=== PATIENT | male | born 1955 | race Caucasian/White ===

== ENCOUNTER → 2023-01-01 08:50 | Outpatient (BNVA) | payer MEDICARE, SELFPAY | PROVIDERS: Visit Provider Neurological Surgery ==

== ENCOUNTER 2023-07-17 08:44 | Outpatient (AMB) | payer MEDICARE, SELFPAY ==
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
[2023-07-17 09:03] VITALS: BMI 41.6
== END 2023-07-17 09:43 | disposition home or self-care (01) ==
PROVIDERS: Visit Provider Physician Assistant
DX: M17.0 Bilateral primary osteoarthritis of knee (principal)
CPT/HCPCS: 99203

== ENCOUNTER 2023-07-17 09:15 | Outpatient (REF) | payer MEDICARE, SELFPAY | END 2023-07-17 09:16 | disposition home or self-care (01) | LOC: HO.HOSX 09:15 | PROVIDERS: Visit Provider Physician Assistant | DX: M17.0 Bilateral primary osteoarthritis of knee (principal); Z79.899 Other long term (current) drug therapy | CPT/HCPCS: 73560; 73565; 99202 ==

== ENCOUNTER 2023-07-30 09:24 | Outpatient (AMB) | payer MEDICARE, SELFPAY ==
--- NOTE | 2023-07-30 09:27 | A.OFFVIS_ITS ---
Intake Intake Visit Reasons: discuss LT TKA Intake Note: Musa is a 67 year old male who presents with complaints of progressively worsening bilateral knee pains, left greater than right. He describes his pain as sharp and severe in nature. His pains have gotten worse over the last few y ears in spite of continued non operative treatments. He has done physical therapy which aggravated his pains. He has also had injections in the past. The most recent set of injections gave him minimal relief. He has tried Tylenol and anti-inflammatory medicines which gave him only mild relief. The patient has difficulty walking even short distances because of his pain. At this point his knee pains are interfering with his activities of daily living and his ability to sleep well through the night. Allergies hazelnut Allergy (Verified 07/30/23 09:29) Unknown peach Allergy (Verified 07/30/23 09:29) Unknown Medication List - Last Reconciled 07/30/23 by Db Wright MD lisinopril 10 mg PO DAILY tamsulosin 0.4 mg PO DAILY PFSH Surgical History Hx of rotator cuff surgery Hx of toe surgery Social History Patient Tobacco Use Status: Never used Tobacco Current occupational status: other Physical Exam Const Other: Well-nourished well-developed very friendly male awake alert and oriented x3 in no acute distress Extrem Other: Bilateral lower extremity examination shows good capillary refill, no skin lesions noted, normal sensation light touch Bilateral knee examination shows minimal effusions, palpable crepitus with range of motion, pain with range of motion, range of motion from -3 degrees to 115 degrees, no instability Results Reviewed Results Reviewed: X-rays of the patient's bilateral knee show severe joint space narrowing with grade 4 [id number] arthritis, subchondral sclerosis, osteophyte formation, no acute bony abnormalities Assessment & Plan Assessment & Plan (1) Arthritis of left knee: Code(s): M17.12 - Unilateral primary osteoarthritis, left knee (2) Arthritis of right knee: Code(s): M17.11 - Unilateral primary osteoarthritis, right knee Plan Mr. Pollack presents with bilateral knee pains, left greater than right, due to end-stage degenerative joint disease. I had a lengthy discussion with the patient regarding the treatment options. At this point the patient has failed continued non operative treatments. The risks and benefits of left total knee replacement surgery were discussed at length with the patient. The patient wishes to proceed with surgery. He will contact my office to pick a surgery date. I will see him back 1 week prior to his surgery to answer any final questions that he might have. If his right knee pain does become more severe than is his left at the time of his surgery we could certainly proceed with right total knee replacement surgery 1st. The patient will follow-up as instructed. Feel free to call me at any time should questions regarding his orthopedic management arise. Thank you very much for asking me to see this very friendly gentleman. I spent 22 minutes in reviewing the patient's records and imaging studies, seeing the patient and documenting in the medical record. Coding Level of Care Code New Pt Level 2 (03454) Diagnoses Arthritis of left knee M17.12 Arthritis of right knee M17.11
== END 2023-07-30 09:53 | disposition home or self-care (01) ==
PROVIDERS: Visit Provider Orthopaedic Surgery
DX: M17.0 Bilateral primary osteoarthritis of knee (principal)
CPT/HCPCS: 99202

== ENCOUNTER → 2023-07-30 09:24 | Outpatient (BNVA) | payer MEDICARE, SELFPAY | PROVIDERS: Visit Provider Orthopaedic Surgery | DX: M17.12 Unilateral primary osteoarthritis, left knee (principal); M17.11 Unilateral primary osteoarthritis, right knee | CPT/HCPCS: 99202 ==

== ENCOUNTER → 2023-08-06 08:57 | Outpatient (BNVA) | payer MEDICARE, SELFPAY | PROVIDERS: Visit Provider Orthopaedic Surgery ==

== ENCOUNTER 2023-08-27 10:02 | Outpatient (AMB) | payer MEDICARE, SELFPAY ==
[2023-08-27 10:03] VITALS: BMI 41.6
--- NOTE | 2023-08-27 10:03 | A.OFFVIS_ITS ---
Intake Vital Signs 08/27/23 10:03 Height 5 ft 10 in Weight 290 lb BMI 41.6 Intake Visit Reasons: pre-op Left TKA 09/01/23 Intake Note: Musa is a 67 year old male who presents with complaints of progressively worsening bilateral knee pains, left greater than right. He describes his pain as sharp and severe in nature. His pains have gotten worse over the last few years in spite of continued non operative treatments. He has done physical therapy which aggravated his pains. He has also had injections in the past. The most recent set of injections gave him minimal relief. He has tried Tylenol and anti-inflammatory medicines which gave him only mild relief. The patient has difficulty walking even short distances because of his pain. At this point his knee pains are interfering with his activities of daily living and his ability to sleep well through the night. Allergies hazelnut Allergy (Verified 08/27/23 10:06) Unknown peach Allergy (Verified 08/27/23 10:06) Unknown [facility] Medical History Pilonidal cyst Skin cancer Arthritis Back pain Umbilical hernia Renal cyst Obesity, Class II, BMI 35-39.9 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, non-recurrent HTN (hypertension) BPH (benign prostatic hyperplasia) Surgical History H/O colonoscopy Hx of rotator cuff surgery Hx of toe surgery Social History Are you a primary director day care center to a significant other at home: No Do you presently have visiting nurse or other home services: No Patient Tobacco Use Status: Never used Tobacco Current occupational status: other Physical Exam Vital Signs: BMI result Body Mass Index 41.6 Const Other: Well-nourished well-developed very friendly male awake alert and oriented x3 in no acute distress Lungs - clear to auscultation bilaterally with symmetric expansion Cardiovascular exam - regular rate and rhythm Abdominal exam - soft nontender nondistended Extrem Other: Bilateral lower extremity examination shows good capillary refill, no skin lesions noted, normal sensation light touch Left knee examination shows a minimal effusion, palpable crepitus range of mot ion, pain with range of motion, range of motion from -3 degrees to 115 degrees, no instability Results Reviewed Results Reviewed: X-rays of the patient's left knee show end-stage degenerative joint disease with grade 4 [id number] arthritis, subchondral sclerosis, osteophyte formation, no acute bony abnormalities Assessment & Plan Assessment & Plan (1) Arthritis of left knee: Code(s): M17.12 - Unilateral primary osteoarthritis, left knee Plan Mr. Pollack presents with progressively worsening bilateral knee pains, left greater than right, due to end-stage degenerative joint disease. I had a lengthy discussion with the patient regarding the treatment options. At this point he has failed continued non operative treatments. The risks and benefits of left total knee replacement surgery were discussed at length with the patient. The patient wishes to proceed with surgery. special services agent will be consulted following his surgery for home physical therapy and nursing. The patient will follow-up as instructed. Feel free to call me at any time should questions regarding his orthopedic management arise. I spent 22 minutes in reviewing the patient's records and imaging studies, seeing the patient and documenting in the medical record. Coding Level of Care Code Est Pt Level 2 (52385) Diagnoses Arthritis of left knee M17.12
== END 2023-08-27 10:27 | disposition home or self-care (01) ==
PROVIDERS: Visit Provider Orthopaedic Surgery
DX: M17.12 Unilateral primary osteoarthritis, left knee (principal)
CPT/HCPCS: 99024

== ENCOUNTER → 2023-08-27 10:02 | Outpatient (BNVA) | payer MEDICARE, SELFPAY | PROVIDERS: Visit Provider Orthopaedic Surgery | DX: M17.12 Unilateral primary osteoarthritis, left knee (principal) | CPT/HCPCS: 99212 ==

== ENCOUNTER 2023-09-01 07:16 | Inpatient (IN) | payer MEDICARE, SELFPAY ==
[2023-08-25 12:12] VITALS: BP 136/82; PULSE 68; RESP 18; O2SAT 96; BMI 40.9
[2023-08-25 15:14] LABS: MRSA Nasal PCR NEGATIVE (Negative); SA Nasal PCR POSITIVE (Negative)
[2023-09-01] VITALS (13 sets, daily range): BP systolic 115–165; BP diastolic 55–85; PULSE 74–85; RESP 16–20; TEMP 36.1–36.8; O2SAT 95–97; BMI 40.7; BMI 40.2
--- OUTSIDE RECORDS SUMMARY | 2023-09-01 07:21 | XMS_ITS | Continuity of Care Document ---
Author Name Unknown Organization Pre Op Overflow Address [address] [place] [id number]- Care Team Providers Care Hog Ribber Name Role Phone Milad SETHI, Waldemar Giron Primary Care Physician Encounter [facility] [place] [place] [facility]CT [facility] [id number] Date(s): 08/11/23 - 08/18/23 Pre Op Overflow [address], [place] [address] Attending Physician: Dawson Miller DO Referring Physician: Db Wright MD Allergies, Adverse Reactions, Alerts Substance Reaction Severity Status Other Food Allergy hazelnut- itch, eye swelling Active Mckinley itch eye swelling Active Medications lisinopril 10 mg oral tablet 10 mg, 1, tablet, By Mouth, Daily, Refills 0, Maintenance, 04/23/21 10:40:00 EDT, Partial fill uponpatient request if the prescription is for a schedule II opioid drug. Start Date: 04/23/21 Status: Ordered semaglutide 0.5 mg/0.5 mL (0.5 mg dose) subcutaneous solution = 0.5 mg, Subcutaneous Infusion, Every Friday, 0 Refills, Maintenance, 08/11/23 14:22:00 EST, Partial fill upon patient request if the prescription is for a schedule II opioid drug. Start Date: 08/11/23 Status: Ordered tamsulosin 0.4 mg oral capsule 0.4 mg, 1, capsule, By Mouth, Daily, Refills 0, Maintenance, 04/23/21 10:41:00 EDT, Partial fill upon patient request if the prescription is for a schedule II opioid drug. Start Date: 04/23/21 Status: Ordered Vitamin D3 5000 intl units oral capsule 1 capsule = 125 mcg, By Mouth, Daily, with food, # 30 capsule, 0 Refills, Maintenance, 04/25/21 10:10:00 EDT, Capsule, Partial fill upon patient request if the prescription is for a schedule II opioid drug. Start Date: 04/25/21 Stop Date: 05/25/21 Status: Ordered Problem List Condition Confirmation Course Effective Dates Status H ealth Status Informant BPH (benign prostatic hyperplasia) Confirmed Active Inguinal hernia bilateral, non-recurrent 1 Confirmed Active Renal cyst 2 Confirmed Active Diverticulosis Confirmed Active HTN (hypertension) Confirmed Active IGT (impaired glucose tolerance) 3 Confirmed Active Obese class II Confirmed Active Lumbar spine DJD Confirmed Active Umbilical hernia 4 Confirmed Active 1Seen on CT abdomen 2Seen on CT abdomen 3A1c 5.[address] abdomen Procedures Procedure Date Related Diagnosis Body Site Status ORIF right great toe Comp leted Rotator cuff repair Compl eted Vital Signs Most recent to oldest [Reference Range]: 1 Height 182 cm (08/11/23 1:31 PM) Weight 130.5 kg (08/11/23 1:31 PM) Oxygen Saturation [94-100 %] 100 % (08/11/23 1:31 PM) Pulse Rate [55-90 bpm] 75 bpm (08/11/23 1:31 PM) Body Mass Index [18.5-24.99 kg/m2] 39.4 kg/m2 *>HHI* (08/11/23 1:31 PM) Blood Pressure [90-138/55-84 mm Hg] 139/ 75mm Hg *H* (08/11/23 1:31 PM) Respiratory Rate [16-30 br/min] 18 br/mi n (08/11/23 1:31 PM) Blood pressure sites Arm, left (08/11/23 1:31 PM) Weight Obtained Via Standing scale (08/11/23 1:31 PM) EKG study * Event Display: ECG 12-Lead Authored Date: Please click on pdf link to open report * Event Display: ECG 12-Lead Authored Date: Ventricular Rate: 67 BPM Atrial Rate: 67 BPM P-R Interval: 174 ms QRS Duration: 108 ms Q-T Interval: 386 ms QTC Calculation(Bazett): 407 ms P Jessup: 68 degrees R Jessup: 37 degrees T Jessup: 36 degrees Normal sinus rhythm Normal ECG When compared with ECG of 19-APR-2021 11:22, No significant change was found Confirmed by MILADIS LEMUS MD ([id number]) on 08/13/2023 4:28:32 PM [place]: MILADIS LEMUS MD Patient Care team information Care Team Personnel Name: Milad SETHI, Waldemar Giron Position: [facility] Outreach Member Role: PCP Address: Address: [address] [place] [address]- Care Team Related Persons Name: KRISTEN JOLLY Address: home [address] [place] [address]
[2023-09-01 07:47] LABS: Glucose, Whole Blood 107 mg/dL (60-115)
--- NOTE | 2023-09-01 07:50 | PHA.MEDREC ---
Pharmacy Consult ? Medication Reconciliation Pharmacy has completed the medication reconciliation. Reviewed med rec done by nursing
[2023-09-01] MEDS: Lactated Ringers 1,000 ML 100 ML IVCONT ×3 (07:52→23:46)
[2023-09-01] MEDS: vancomycin/NS 2,000 MG/500 ML PLAST..BAG 250 MG IV (07:59)
--- NOTE | 2023-09-01 08:10 | HO.ANESPROP2 ---
Documented by User: Deborah Cavanaugh NP 08/25/23 12:56 HPI - Anesthesia Eval Consult details Narrative: 67yo M for Left Knee Replacement Total, 09/01/23 Medically cleared at [facility] No recent illness No CP/SOB within limits of knee pain. Elipitical and weights 3 x weekly PMFSH Active Problems Active Problems: All Active Problems (Updated 08/25/23 @ 12:02 by Sis Clay RN) Arthritis of right knee (Acute) Arthritis of left knee (Acute) Osteoarthritis of knees, bilateral (Acute) Chronic right SI joint pain (Acute) Past Medical History Medical History Pilonidal cyst Skin cancer Arthritis Back pain Umbilical hernia Renal cyst Obesity, Class II, BMI 35-39.9 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, non-recurrent HTN (hypertension) BPH (benign prostatic hyperplasia) Family History Family history of problems with anesthesia: No Surgical History Surgical History H/O colonoscopy Hx of rotator cuff surgery Hx of toe surgery History of Problems with Anesthesia: No Social History Social History Are you a primary adult daycare coordinator to a significant other at home: No Do you presently have visiting nurse or other home services: No Patient Tobacco Use Status: Never used Tobacco Use of substances other than those prescribed or required for medical reasons: No Have you been hit, kicked, punched, or otherwise hurt by someone within the past year? If so, by whom?: No Advance Directives: No Advance Directives Information Provided: No Advance Directives on File: No Recently lost weight without trying: No Nutrition Risks: No Nutritional Risk Poor oral hygiene: Yes (five implants upper and lower) Current occupational status: other Meds Allergies Allergy/AdvReac Type Severity Reaction Status Date / Time hazelnut Allergy Itching Verified 09/01/23 07:26 peach Allergy Itching Verified 09/01/23 07:26 Home Medications Medication Instructions Recorded Confirmed Last Taken Type lisinopril 10 mg tablet 10 mg PO DAILY 07/17/23 08/25/23 Unknown History tamsulosin 0.4 mg capsule 0.4 mg PO DAILY 1208/25/23 09/01/23 History cholecalciferol (vitamin D3) 125 125 mcg PO DAILY 08/22/23 08/25/23 Unknown History mcg (5,000 unit) tablet (Vitamin D3) semaglutide 0.25 mg or 0.5 mg (2 0.5 mg subcut QWEEK 08/22/23 08/25/23 08/24/23 History mg/3 mL) subcutaneous pen injector psyllium husk 0.4 gram capsule 0.8 g PO TID 08/25/23 08/25/23 Unknown History Exam Height,Weight and Vital Signs: Height 5 ft 10 in Weight 129.274 kg Last Vital Signs Pulse 68 08/25/23 12:12 Resp 18 08/25/23 12:12 BP 136/82 08/25/23 12:12 Pulse Ox 96 08/25/23 12:12 O2 Del Method Room Air 08/25/23 12:12 Pertinent Lab Results Pertinent Lab Results: 07/2023 outside labs CBC and BMP wnl Narrative Narrative: EKG 07/2023 NSR @ 67 Airway Mallampati Class: I TM Dist: >3cm Neck ROM: Full Loose/Missing/Broken Teeth: Yes (5 x singular implants throughout) Heart: RRR Lungs: CTAB Assessment and Plan Assessment Anesthesia Assessment: Anesthesia Plan Discussed and PAT Visit Final Anesthetic Review Family History of Problems with Anesthesia: No History of Problems with Anesthesia: No Documented by User: Alejandra Jonas DO 09/01/23 09:03 HPI - Anesthesia Eval Anesthesia Pre-Procedure Meds Is the patient on any of the following meds?: Semaglutide (Ozempic) (last dose 9 days ago) If Yes to any meds - educate patient: Pt education - increased risk of aspiration PMFSH Past Medical History Medical History Pilonidal cyst Skin cancer Arthritis Back pain Umbilical hernia Renal cyst Obesity, Class II, BMI 35-39.9 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, non-recurrent HTN (hypertension) BPH (benign prostatic hyperplasia) Family History Family history of problems with anesthesia: No Surgical History Surgical History H/O colonoscopy Hx of rotator cuff surgery Hx of toe surgery History of Problems with Anesthesia: No Social History Social History Are you a primary adult daycare coordinator to a significant other at home: No Do you presently have visiting nurse or other home services: No Patient Tobacco Use Status: Never used Tobacco Use of substances other than those prescribed or required for medical reasons: No Have you been hit, kicked, punched, or otherwise hurt by someone within the past year? If so, by whom?: No Advance Directives: No Advance Directives Information Provided: No Advance Directives on File: No Recently lost weight without trying: No Nutrition Risks: No Nutritional Risk Poor oral hygiene: Yes (five implants upper and lower) Current occupational status: other Meds Allergies Allergy/AdvReac Type Severity Reaction Status Date / Time hazelnut Allergy Itching Verified 09/01/23 07:26 peach Allergy Itching Verified 09/01/23 07:26 Home Medications Medication Instructions Recorded Confirmed Last Taken Type lisinopril 10 mg tablet 10 mg PO DAILY 07/17/23 08/25/23 Unknown History tamsulosin 0.4 mg capsule 0.4 mg PO DAILY 07/17/23 08/25/23 09/01/23 History cholecalciferol (vitamin D3) 125 125 mcg PO DAILY 08/22/23 08/25/23 Unknown History mcg (5,000 unit) tablet (Vitamin D3) semaglutide 0.25 mg or 0.5 mg (2 0.5 mg subcut QWEEK 08/22/23 08/25/23 08/24/23 History mg/3 mL) subcutaneous pen injector psyllium husk 0.4 gram capsule 0.8 g PO TID 08/25/23 08/25/23 Unknown History Exam Exam Date and Time: August 30, 2023 0810 Height,Weight and Vital Signs: Height 5 ft 10 in Weight 128.82 kg Vital Signs Pulse Rate 68 08/25/23 12:12 Respiratory Rate 18 08/25/23 12:12 Blood Pressure 136/82 08/25/23 12:12 Pulse Oximetry 96 08/25/23 12:12 Oxygen Delivery Method Room Air 08/25/23 12:12 Temperature 97.9 F 09/01/23 07:46 Pulse Rate 74 09/01/23 07:46 Respiratory Rate 18 09/01/23 07:46 Blood Pressure 165/85 H 09/01/23 07:46 Pulse Oximetry 96 09/01/23 07:46 Oxygen Delivery Method Room Air 09/01/23 07:46 Height 5 ft 10 in Weight 129.274 kg Last Vital Signs Pulse 68 08/25/23 12:12 Resp 18 08/25/23 12:12 BP 136/82 08/25/23 12:12 Pulse Ox 96 08/25/23 12:12 O2 Del Method Room Air 08/25/23 12:12 Airway Mallampati Class: I TM Dist: >3cm Neck ROM: Full Heart: S1S2 Assessment and Plan Assessment Anesthesia Assessment: Anesthesia Plan Discussed and Chart Reviewed Final Anesthetic Review Family History of Problems with Anesthesia: No History of Problems with Anesthesia: No NPO: Yes ASA Class: III Final Preanesthetic Review: No Changes in Pt Med Stat, Meds/Allgs Chart Reviewed, Consent Obtained/Reviewed and Anes Risks/Benef Reviewed Patient Risk: Intermediate Procedure Risk: Intermediate Anesthetic Plan Anesthetic Plan: Spinal, Regional Block (left adductor canal block) and Agree w/ Assess. and Plan Disposition: Standard PACU
--- NOTE | 2023-09-01 08:28 | PC.NURSE ---
Dr. Wright stated that he would like Cefazolin 2 gm IV and also Vancomycin 2000 mg - verified by pharmacy.
[2023-09-01] MEDS: HYDROmorphone HCl 0.5 MG/0.5 ML SYRINGE IVPUSH ×6 (11:25→23:50)
--- NOTE | 2023-09-01 11:36 | PM.OP ---
Brief Operative Note Date of Service: 09/01/23 Pre-op diagnosis: Left knee degenerative joint disease Post-op diagnosis: same Procedure: Left total knee arthroplasty Implants: Roxie Triathlon cemented posterior stabilized total knee arthroplasty with a femoral component size 6 left, universal tibial component size 7, polyethylene liner size 7 with 11 mm of thickness, tibial stem size 12 mm in diameter by 50 mm in length, an asymmetric patellar component size 38 with 11 mm of thickness Surgeon: Db Wright MD Anesthesia: regional and spinal Was an Soil Fertility Extension Specialist used for this Procedure?: Yes Soil Fertility Extension Specialist: Dipti Osman Estimated blood loss (mL): 200 Pathology: other (Bony fragments from the left femur, tibia and patella) Condition: stable Disposition: PACU
--- NOTE | 2023-09-01 11:38 | P.OP_ITS ---
Operative Note Operative Note Date of Service: 09/01/23 Narrative: After the patient was identified as Musa Pollack and his left knee was initialed by myself the patient was brought to the holding area where a left leg nerve block was performed by the anesthesiologist in routine fashion. The patient was then brought to the operating room where conscious sedation and spinal anesthesia were performed by the anesthesiologist in routine fashion. Because of the patient's obesity he was given both IV vancomycin and IV Ancef preoperatively for infection prophylaxis. The patient's left lower extremity was prepped and draped in sterile fashion. A formal time-out was completed. The patient's left knee was placed onto a small bump to produce 30? of knee flexion during exposure. A #10 scalpel blade was used to make a midline incision extending 1 handbreadth proximal and distal to the patella. A second #10 scalpel blade was used to dissect the subcutaneous tissues down to the extensor mechanism. The subcutaneous flaps were maintained as thick as possible. A medial parapatellar arthrotomy was then performed using a #10 scalpel blade. The arthrotomy was begun just medial to the patellar tendon. The arthrotomy was continued 1 cm medial to the patella and then 5 mm into the medial aspect of the quadriceps tendon. The infrapatellar fat pad was partially excised to help with exposure. The soft tissue retinaculum was raised one-half of the way around the medial aspect of the proximal tibia. The patella was everted and the knee was flexed to 90?. There was no injury to the patellar tendon or its insertion onto the tibial tubercle. A drill bit was introduced into the distal aspect of the femur with a starting point 1 cm anterior to the origin of the posterior cruciate ligament. The intramedullary alignment barbara was put into place. The distal alignment guide was set for a 5 degree valgus cut. The distal cutting block was put into place and was held with 4 pins. The intramedullary alignment barbara was removed. Soft tissues were retracted in the distal femoral cut was made using a sagittal saw. The distal aspect of the femur measured to be a size 6 left component. Two drill holes were placed into the distal aspect of the femur marking 3? of external rotation. The distal cutting block was impacted into place and was held with 2 pins. Soft tissues were retracted and the 4 distal femoral cuts were made using a sagittal saw. Final notching and drilling of the distal aspect of the femur were performed in routine fashion. The trial femoral component was impacted into place. The knee was taken through a full range of motion. The patella tracked well. The patella was everted and the knee was flexed to 90?. The trial component was removed and our attention was directed to the proximal tibia. The medial and lateral menisci were removed using a #10 scalpel blade. A small rim of the medial meniscus was left intact to help prevent injury to the medial collateral ligament. A drill bit was then introduced into the proximal tibia with a starting point midway from medial to lateral and one-third of the way posteriorly. The intramedullary alignment barbara was put into place. The proximal tibial cutting guide was placed over the alignment barbara in line with the 2nd toe. The guide was held in place using 3 pins. The intramedullary alignment barbara was removed. Soft tissues were retracted and the proximal tibial cut was made using a sagittal saw. Inspection of the proximal tibia showed a bony cyst measuring 10 mm x 5 mm x 5 mm along the medial tibial plateau. Because of the presence of the cyst and the patient's obesity the decision was made to use a tibial stem to help prevent loosening of the tibial component in the future. The proximal tibia measured to be a size 7 component. The tibial tray was put into place with an 11 mm liner. The femoral component was impacted into place. The knee was taken through a full range of motion. There was full flexion and full extension. There was no instability with varus or valgus stress testing with the knee in flexion or extension. The patella tracked well with no medially directed force. The rotation of the tibial tray was marked using electrocautery with the knee in extension. The patella was everted and the knee was flexed to 90?. All trial components were removed. The tibial tray was placed onto the proximal tibia in line with the electrocautery marline. The tray was held in place using 3 pins. Final broaching and drilling of the proximal tibia were performed in routine fashion. The trial liner and trial femoral component were put into place. The knee was brought into extension and our attention was directed to the patella. The patella measured 25 mm in thickness. The patellar resection guide was set for a 10 mm resection. Soft tissues were retracted and the p atella cut was made using a sagittal saw. The remaining patella measured 15 mm in thickness. The undersurface of the patella was measured to be a size 38 asymmetric component. Three drill holes were placed into the undersurface of the patella in routine fashion. The trial component was put into place. The knee was taken through a full range of motion. The patella tracked well. The patella was everted and the knee was flexed to 90?. All trial components were removed. The knee was once again brought into extension and placed onto a small bump. The knee joint was irrigated with copious amounts of normal saline solution via pulse lavage while the cement was mixed. The patella was everted and the knee was flexed to 90?. A small amount of cement was placed along the posterior aspects of the tibial and femoral components. Cement was then pressurized into the proximal tibia. The tibial component was impacted into place. Any excess cement was removed. The polyethylene liner was then impacted into place. Cement was then pressurized into the distal aspect of the femur. A small amount of cement was placed into the intramedullary canal to help reduce bleeding. The femoral component was impacted into place. Any excess cement was removed. The knee was then brought into extension. Cement was pressurized into the undersurface of the patella. The patellar component was put into place and was held with a patella clamp. Any excess cement was removed. Once the cement had hardened the patellar clamp was removed. The knee was taken through a full range of motion. There was full flexion and extension. There was no instability with varus or valgus stress testing with the knee in flexion or extension. The patella tracked well with no medially directed force. The knee joint was irrigated with copious amounts of normal saline solution via pulse lavage. Any significant bleeding vessels were coagulated. The patient's left knee was placed onto a small bump. The arthrotomy was closed with #2 Ethibond [id number] interrupted suture as well as #1 Vicryl [id number] interrupted suture. The wound was once again irrigated. The subcutaneous tissues were closed with 0 Vicryl and 2-0 Vicryl interrupted sutures. The skin was closed with skin darlene. Dry sterile dressing and Anjum bandages were placed over the patient's left knee. The patient was awake and alert. The patient was transferred to the recovery room in stable condition.
[2023-09-01] MEDS: oxyCODONE HCl Immed Release 5 MG TABLET PO (11:48)
[2023-09-01] MEDS: oxyCODONE HCl ER 10 MG TAB.ER.12H PO ×2 (12:36→19:27)
--- NOTE | 2023-09-01 12:49 | PM.IMCN ---
History of Present Illness Data of Consult Service Date: 09/01/23 Requesting physician: Db Wright Primary Care Provider: Waldemar Stinson MD HPI Reason for consult: med management 67y/o M history of hypertension,dm,OA: Patient came to the hospital for elective knee surgery due to osteoarthritis patient says that he is having knee pain for many years but some home managing before now was becoming more and more difficult function , so decided for knee surgery, currently day 1 status post knee surgery. Denies any other complaint except has knee soreness and wrapped. Denies any new complaint of chest pain or shortness of breath or abdominal pain or fever or chills or nausea or vomiting Denies any cough Denies any weakness or numbness. Labs reviewed:XR/XR knee LT 2V 1. There is moderately severe degenerative change of the medial joint space compartment of the right knee. 2. There is moderately severe degenerative change of the medial and patellofemoral joint space compartments of the left knee. 3. No fracture, dislocation or joint effusion is seen. 4. There is a slight bilateral varus configuration. Review of Systems Review of Systems: Yes all other systems are reviewed and are negative FORMERLY [facility] Medical History Pilonidal cyst Skin cancer Arthritis Back pain Umbilical hernia Renal cyst Obesity, Class II, BMI 35-39.9 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, non-recurrent HTN (hypertension) BPH (benign prostatic hyperplasia) Family History (Updated 09/01/23 @ 17:25 by Karie Barrios MD) Other HTN (hypertension) Pertinent family history: sister has OA -has b/l knee replacment. Surgical History H/O colonoscopy Hx of rotator cuff surgery Hx of toe surgery Social History Household Members: Spouse Housing: House Are you a primary furnace caretaker to a significant other at home: No Do you presently have visiting nurse or other home services: No Patient Tobacco Use Status: Never used Tobacco Use of substances other than those prescribed or required for medical reasons: No Currently Displaying Signs/Symptoms of Drug Intoxication Withdrawal: No Have you been hit, kicked, punched, or otherwise hurt by someone within the past year? If so, by whom?: No Do you feel safe in your current relationship?: Yes Is there a partner from a previous relationship who is making you feel unsafe now?: No Are you made to feel afraid or neglected: No Advance Directives: No Advance Directives Information Provided: No Advance Directives on File: No Do you have thoughts of harming others: None Do you have a plan to hurt others: No Plan Recently lost weight without trying: No Eating poorly because of decreased appetite: No Nutrition Risks: No Nutritional Risk Poor oral hygiene: No Current occupational status: other Meds Allergies Allergy/AdvReac Type Severity Reaction Status Date / Time hazelnut Allergy Itching Verified 09/01/23 07:26 peach Allergy Itching Verified 09/01/23 07:26 Active Medications: Current Medications Acetaminophen (Acetaminophen 325 Mg Tablet) 650 mg PO Q6H PRN PRN Reason: Pain, Mild (Pain Scale 1-3) Aspirin (Aspirin 325 Mg Tablet) 325 mg PO BID [facility] Celecoxib (Celecoxib 200 Mg Capsule) 200 mg PO BID [facility] Docusate Sodium (Docusate Sodium 100 Mg Capsule) 100 mg PO BID [facility] Gabapentin (Gabapentin 100 Mg Capsule) 100 mg PO BEDTIME [facility] Haloperidol Lactate (Haloperidol Lactate 5 Mg/Ml Vial) 0.5 mg IVPUSH ONCE PRN PRN Reason: Nausea and Vomiting Hydromorphone HCl (Hydromorphone Hcl 0.5 Mg/0.5 Ml Syringe) 0.5 mg IVPUSH Q5M PRN; Protocol PRN Reason: Pain, Severe (Pain Scale 7-10) Last Admin: 09/01/23 11:48 Dose: 0.5 mg Hydromorphone HCl (Hydromorphone Hcl 0.5 Mg/0.5 Ml Syringe) 0.5 mg IVPUSH Q4H PRN; Protocol PRN Reason: Pain, Severe (Pain Scale 7-10) Lactated Ringer's (Lr) 1,000 mls @ 100 mls/hr IVCONT .Q10H [facility] Last Admin: 09/01/23 07:52 Dose: 100 mls/hr Vancomycin HCl 1,000 mg/ (Sodium Chloride) 270 mls @ 270 mls/hr IV POSTOP ONE Stop: 09/01/23 20:59 Lactated Ringer's (Lr) 1,000 mls @ 100 mls/hr IVCONT .Q10H [facility] Cefazolin Sodium/Dextrose (Ancef) 2 gm in 50 mls @ 100 mls/hr IV Q8H [facility] Stop: 09/02/23 10:00 Lisinopril (Lisinopril 10 Mg Tablet) 10 mg PO DAILY [facility]; Protocol Methocarbamol (Methocarbamol 500 Mg Tablet) 500 mg PO TID [facility] Non-Formulary Medication (Semaglutide) 0.5 mg SUBCUT Q7D [facility] Ondansetron HCl (Ondansetron Hcl 4 Mg/2 Ml Vial) 4 mg IVPUSH Q8H PRN PRN Reason: Nausea and Vomiting Oxycodone HCl (Oxycodone Hcl Immed Release 5 Mg Tablet) 10 mg PO Q4H PRN PRN Reason: Pain, Moderate(Pain Scale 4-6) Oxycodone HCl (Oxycodone Hcl Immed Release 5 Mg Tablet) 5 mg PO Q4H PRN PRN Reason: Pain, Moderate(Pain Scale 4-6) Oxycodone HCl (Oxycodone Hcl Er 10 Mg Tab.Er.12h) 10 mg PO BID [facility] Last Admin: 09/01/23 12:36 Dose: 10 mg Pharmacy Consult (Consult Rx Vancomycin Dosing) 1 each MISCELLANE DAILY PRN PRN Reason: Consult order Pharmacy Consult (Consult Rx Vancomycin Dosing) 1 each MISCELLANE DAILY PRN PRN Reason: Consult order Sodium Chloride (0.9 % Sodium Chloride Flush 3 Ml Syringe) 3 ml IVFLUSH QSHIFT [facility] Tamsulosin HCl (Tamsulosin Hcl 0.4 Mg Capsule) 0.4 mg PO DAILY [facility] Vitamin D (Cholecalciferol (Vitamin D3) 25 Mcg Tablet) 125 mcg PO DAILY [facility] Home Medications Medication Instructions Recorded Confirmed Last Taken Type lisinopril 10 mg tablet 10 mg PO DAILY 07/17/23 08/25/23 Unknown History tamsulosin 0.4 mg capsule 0.4 mg PO DAILY 07/17/23 08/25/23 09/01/23 History cholecalciferol (vitamin D3) 125 125 mcg PO DAILY 08/22/23 08/25/23 Unknown History mcg (5,000 unit) tablet (Vitamin D3) semaglutide 0.25 mg or 0.5 mg (2 0.5 mg subcut QWEEK 08/22/23 08/25/23 08/24/23 History mg/3 mL) subcutaneous pen injector psyllium husk 0.4 gram capsule 0.8 g PO TID 08/25/23 08/25/23 Unknown History Physical Exam Vital Signs and Narrative: Vital Signs: Last Vital Signs Temp 97.8 F 09/01/23 12:39 Pulse 74 09/01/23 12:39 Resp 16 09/01/23 12:39 BP 143/75 H 09/01/23 12:39 Pulse Ox 96 09/01/23 12:39 O2 Del Method Room Air 09/01/23 12:39 BMI result Body Mass Index 40.7 Appearance: Alert.? Oriented X3.? cvs: rrr, [id number] , no murmur res: clear to auscultation ,no rhonchii or wheezing abd: no rebound or guarding ,nt, bs present. knee left -s/p arthroplasty ,wrapped ext pulses present , no cyanosis . neuro: axo3 , nonfocal. Results Labs Labs: Laboratory Results - last 24 hr 09/01/23 09/01/23 07:32 07:37 POC Glucose 107 Blood Type O Positive Antibody Screen NEGATIVE Assessment and Plan (1) Arthritis of left knee: Status: Acute Plan 67y/o M history of hypertension,dm,OA-s/p knee surgery day1. Knee OA: Status post Left total knee arthroplasty Continue pain medications, bowel regimen, incentive spirometry htn: Blood pressure stable Continue home medication Diabetes: Last fingersticks is 107 Continue diabetic diet, home medications, fingerstick with sliding scale coverage. dvt prophylax: scd. Further management as per primary team, we will sign off now, please call us for any questions.
[2023-09-01] MEDS: lisinopriL 10 MG TABLET PO (14:03)
[2023-09-01] MEDS: Docusate Sodium 100 MG CAPSULE PO ×2 (14:04→19:27)
[2023-09-01] MEDS: Cholecalciferol (Vitamin D3) 25 MCG TABLET 125 MCG PO (14:04)
[2023-09-01] MEDS: Celecoxib 200 MG CAPSULE PO ×2 (14:06→19:27)
[2023-09-01] MEDS: methocarbamoL 500 MG TABLET PO ×2 (14:06→19:27)
[2023-09-01] MEDS: oxyCODONE HCl Immed Release 5 MG TABLET 10 MG PO ×3 (15:48→22:44)
[2023-09-01] MEDS: ceFAZolin Sodium/Dextrose,Iso 2 GM/50 ML PIGGYBACK IV (17:48)
[2023-09-01] MEDS: Aspirin 325 MG TABLET PO ×2 (17:51→19:27)
[2023-09-01] MEDS: vancomycin HCL 1,000 MG in 0.9 % Sodium Chloride 250 ML 270 MG IV (19:26)
[2023-09-01] MEDS: Acetaminophen 325 MG TABLET 650 MG PO (19:27)
[2023-09-01] MEDS: Gabapentin 100 MG CAPSULE PO (19:27)
[2023-09-01] MEDS: ondansetron HCL 4 MG/2 ML VIAL IVPUSH (20:09)
[2023-09-01 20:33] LABS: Glucose, Whole Blood 140 mg/dL (60-115)
[2023-09-01] MEDS: 0.9 % Sodium Chloride Flush 3 ML SYRINGE IVFLUSH (23:47)
[2023-09-02] MEDS: ceFAZolin Sodium/Dextrose,Iso 2 GM/50 ML PIGGYBACK IV ×2 (02:28→09:11)
[2023-09-02] MEDS: oxyCODONE HCl Immed Release 5 MG TABLET 10 MG PO ×3 (02:30→10:32)
[2023-09-02 04:00] VITALS: BP 133/63; PULSE 78; RESP 16; TEMP 36.7; O2SAT 96
[2023-09-02] MEDS: HYDROmorphone HCl 0.5 MG/0.5 ML SYRINGE IVPUSH (04:30)
[2023-09-02] MEDS: ondansetron HCL 4 MG/2 ML VIAL IVPUSH (04:32)
[2023-09-02 05:48] LABS: MANUAL DIFF FLAG NO
[2023-09-02 05:53] LABS: Basophils Percent Auto 0.3 % (0-2); Eosinophils Absolute Auto 0.1 X10*3/uL (0.0-0.4); Eosinophils Percent Auto 0.5 % (0-4); Hematocrit 36.4 % (42.0-52.0); Hemoglobin 12.4 g/dl (14.0-18.0); Imm Gran Abs Auto 0.07 X10*3/uL (0.00-0.03); Imm Gran Pct Auto 0.5 % (0.0-0.4); Lymphocytes Absolute Auto 1.6 X10*3/uL (1.2-4.9); Lymphocytes Percent Auto 10.7 % (20-40); Mean Corpuscular HGB Conc 34.1 g/dl (31.0-36.0); Mean Corpuscular Volume 88.1 fL (80.0-98.0); Mean Platelet Volume 10.5 fL (9.4-12.4); Monocytes Absolute Auto 1.1 X10*3/uL (0.1-1.2); Monocytes Percent Auto 7.3 % (2-11); Neutrophils Absolute Auto 11.8 x10*3/uL (2.0-8.3); Neutrophils Percent Auto 80.7 % (45-73); Platelet Count 231 X10*3/uL (160-400); Red Blood Count 4.13 X10*6/uL (4.60-5.80); Red Cell Distribution Width 13.7 % (11.0-16.0); White Blood Count 14.6 X10*3/uL (4.8-10.8)
[2023-09-02 06:02] LABS: Anion Gap 10 (12-20); Blood Urea Nitrogen 18 mg/dL (9-16); Calcium 8.3 mg/dL (8.4-10.2); Carbon Dioxide 26 mmol/L (22-29); Chloride 104 mmol/L (96-108); Creatinine Clr Calc Pharmacy 123.1; Estimated Glomerular Filt Rate > 60; Glucose Fasting 120 mg/dL (60-99); Sodium 136 mmol/L (135-145)
[2023-09-02] MEDS: Lactated Ringers 1,000 ML 100 ML IVCONT (06:31)
[2023-09-02 07:03] VITALS: BP 150/80; PULSE 77; RESP 16; TEMP 36.6; O2SAT 96
--- NOTE | 2023-09-02 07:45 | P.PNOP_ITS ---
Subjective Subjective Date of Service: 09/02/23 Interval history: POD 1 s/p lt tka no overnight events resting in bed, pain is tolerable denies sob, cp, palpitations Physical Exam Vital Signs: Vital Signs: Last Vital Signs Temp 97.8 F 09/02/23 07:03 Pulse 77 09/02/23 07:03 Resp 16 09/02/23 07:03 BP 150/80 H 09/02/23 07:03 Pulse Ox 96 09/02/23 07:03 O2 Del Method Room Air 09/02/23 07:03 BMI result Body Mass Index 40.2 Const: General: cooperative, healthy appearing and no acute distress Resp: Effort & Inspection: normal respiratory effort and able to speak in complete sentences Cardio: Rate: regular rate Peripheral pulses: Peripheral pulses 2+ throughout GI: Palpation (GI): Soft to palpation Skin: General skin exam: no rashes or lesions noted Extrem: Other: bandage clean dry and intact. [place] intact. No erythema or joint effusion. Calf supple nontender. Neurovascularly intact. Procedures Date of Service Date of Service: 09/02/23 Progress Note: A&P Assessment and plan (1) Status post total left knee replacement: Status: Acute Assessment and Plan: * Continue pain mgmnt * Begin Aspirin for dvt ppx * begin PT for LT TKA * Dispo planning-Pending PT eval, pain mgmnt Need for continued inpatient stay: pt eval Time Spent With Patient Time: Total time managing care of this patient today ____ minutes. Quality Stroke Does the patient have a stroke diagnosis?: No VTE Prior VTE?: No VTE Risk Level:: Surgical - very high VTE Device Contraindication: N/A - Device Ordered VTE Drug Contraindication: N/A - Med Ordered
[2023-09-02] MEDS: Tamsulosin HCL 0.4 MG CAPSULE PO (08:02)
[2023-09-02] MEDS: Cholecalciferol (Vitamin D3) 25 MCG TABLET 125 MCG PO (08:02)
[2023-09-02] MEDS: Aspirin 325 MG TABLET PO (08:03)
[2023-09-02] MEDS: oxyCODONE HCl ER 10 MG TAB.ER.12H PO (08:03)
[2023-09-02] MEDS: Docusate Sodium 100 MG CAPSULE PO (08:03)
[2023-09-02] MEDS: methocarbamoL 500 MG TABLET PO (08:03)
[2023-09-02] MEDS: lisinopriL 10 MG TABLET PO (08:03)
[2023-09-02] MEDS: Celecoxib 200 MG CAPSULE PO (08:03)
--- NOTE | 2023-09-02 08:03 | W.MHC.F2F ---
Service Date Service Date: 09/02/23 Encounter Date of encounter: 09/02/23 Reasons for Services Signs and symptoms assessed: s/p LTKA. Pt. is considered homebound due to recent surgery. Unable to drive, poor balance, poor gait mechanics. Reason for physical therapy: home safety and mobility, therapeutic exercises, restore joint function, gait/transfer training, assess need for DME and ADL training Homebound: Leaving the home is medically contraindicated at this time without the asist of a device and/or another person due th the listed conditions above and below. Reason homebound: unsteady gait / fall risk, leg weakness, pain with ambulation, pain with transfers, poor balance / fall risk and unable to drive Certification: Based on the above findings, I certify that this patient is confined to the home and needs intermittent retirement care, physical therapy and/or speech therapy, or continues to need occupational therapy. The patient is under my care, and I have initiated the establishment of the plan of care. The patient will be followed by a physician who will periodically review the plan of care. Time Spent With Patient Time: Total time managing care of this patient today ____ minutes.
--- NOTE | 2023-09-02 08:04 | P.DS_ITS ---
DS: Providers Provider Date of Service: 09/02/23 Date of admission: 09/01/23 07:16 Primary care physician: Waldemar Stinson MD Consults: 09/01/23 12:19 Consult to Hospitalist Routine Comment: Consulting Provider: Hospitalist Reason For Exam: routine medical management DS: Diagnosis Discharge Diagnosis (1) Status post total left knee replacement: Status: Acute DS: Summary Hospital Course Hospital Course: The patient underwent a successful left total knee arthroplasty, they were transferred to PACU and then to the floor to recover. During their stay, their vitals were stable, afebrile at 97.8. Labs were unremarkable, H/H 12.4/36.4. POD 1 they were started on Aspirin 325mg po bid for DVT ppx, they also received Physical Therapy services twice a day. Prior to discharge, their dressing was clean dry and intact, and the plan was to be discharged home with VNA services. Time Attestation Discharge coordination time: Less than 30 minutes Quality: Safe Use of Opioids Does Pt have an Active Cancer Diagnosis on the Problem List?: No Quality: Stroke Does the patient have a stroke diagnosis?: No Physical Exam Vital Signs: Vital Signs: Last Vital Signs Temp 97.8 F 09/02/23 07:03 Pulse 77 09/02/23 07:03 Resp 16 09/02/23 07:03 BP 150/80 H 09/02/23 07:03 Pulse Ox 96 09/02/23 07:03 O2 Del Method Room Air 09/02/23 07:03 BMI result Body Mass Index 40.2 Const: General: cooperative, healthy appearing and no acute distress Resp: Effort & Inspection: normal respiratory effort and able to speak in complete sentences Cardio: Rate: regular rate Peripheral pulses: Peripheral pulses 2+ throughout GI: Palpation (GI): Soft to palpation Skin: General skin exam: no rashes or lesions noted Extrem: Other: left knee bandage clean dry and intact. [place] intact. No erythema or joint effusion. Calf supple nontender. Neurovascularly intact. DS: Data Data Completed and Pending Pending studies at discharge: Pending at discharge 09/01/23 09:11 Surgical [PTH] Routine Labs on day of discharge: Laboratory Results - last 24 hr 09/01/23 09/01/23 09/02/23 07:32 20:21 05:18 WBC 14.6 H RBC 4.13 L Hgb 12.4 L Hct 36.4 L MCV 88.1 MCH 30.0 MCHC 34.1 RDW 13.7 Plt Count 231 MPV 10.5 Immature Gran % (Auto) 0.5 H Neut % (Auto) 80.7 H Lymph % (Auto) 10.7 L [place] % (Auto) 7.3 Eos % (Auto) 0.5 Baso % (Auto) 0.3 Lymph # (Auto) 1.6 [place] # (Auto) 1.1 Eos # (Auto) 0.1 Baso # (Auto) 0.0 Abs Immat Gran (auto) 0.07 H Absolute Neuts (auto) 11.8 H Absolute Nucleated RBC 0.000 Nucleated RBC % (auto) 0.0 Sodium 136 Potassium 4.0 Chloride 104 Carbon Dioxide 26 Anion Gap 10 L BUN 18 H Creatinine 0.80 Estim Creat Clear Calc 123.1 Estimated GFR > 60 POC Glucose 140 H Fasting Glucose 120 H Calcium 8.3 L Antibody Screen NEGATIVE Discharge Plan Discharge Anticipated Discharge Date/Time: 09/02/23 07:46 Patient Disposition: Home Health Service Discharge Diagnosis: lt tka Referrals: Waldemar Stinson MD [Primary Care Provider] - 1 Week Dpiti Osman PA-C [Physician Optimization Consultant] - 2 Weeks (09/18/23 13:15 [facility] Dipti Osman PA-C) Discharge Medications: New methocarbamol 500 mg Tablet 500 mg PO TID 7 Days Qty: 21 0RF celecoxib 200 mg Capsule 200 mg PO BID 30 Days Qty: 60 0RF acetaminophen 325 mg Tablet 650 mg PO Q6H PRN (Reason: Pain, Mild (Pain Scale 1-3)) 30 Days Qty: 240 0RF aspirin 325 mg Tablet 325 mg PO BID 42 Days Qty: 84 0RF docusate sodium 100 mg Capsule 100 mg PO BID 90 Days Qty: 180 0RF gabapentin 100 mg Capsule 100 mg PO BEDTIME 7 Days Qty: 7 0RF oxycodone 5 mg Tablet 5 mg PO Q4H PRN (Reason: Pain, Moderate(Pain Scale 4-6)) 7 Days Qty: 42 0RF Rx Instructions: Partial Fill upon patient request. Janie (FRANCESCA Almanzar See Rx Instructions .ROUTE .MEDSUPPLY Qty: 1 0RF Rx Instructions: Folding front wheeled walker cholecalciferol (vitamin D3) [Vitamin D3] 125 mcg (5,000 unit) Tablet 125 mcg PO DAILY semaglutide 0.25 mg or 0.5 mg (2 mg/3 mL) Pen Injector 0.5 mg SUBCUT QWEEK Patient Comments: every Friday psyllium husk 0.4 gram Capsule 0.8 g PO TID tamsulosin 0.4 mg capsule 0.4 mg PO DAILY lisinopril 10 mg tablet 10 mg PO DAILY Discharge Orders: Discharge Order (Routine); Ordered 09/02/23 Ordered By: Dipti Osman Diet: Regular diet Activity on Discharge: Use cane or walker Stand Alone Forms: Patient Portal Discharge page Care Plan Goals: Restore function of joint Health Concerns: none Plan of Treatment: Physical Therapy Pain management DVT prophylaxis Assessment: Physical Therapy for Total knee arthroplasty: WBAT, gait training, ROM 0-12, quad strength * Limit stair climbing * No showering, no tub bath-keep dressing clean, dry and intact * No driving x6 weeks * Continue Aspirin twice a day x 6 weeks * Follow up with [facility] in 2 weeks:
[2023-09-02 08:16] VITALS: BP 150/80; PULSE 77; O2SAT 96
--- NOTE | 2023-09-02 09:01 | MHC.CM.PN ---
IMM DELIVERED PT LIVES WITH [facility]. INDEPENDENT AT BASELINE. NO HCP BUT WILLING TO COMPLETE ONE WHILE HERE. PCP DR. VALENCIA. DP: PT HAS BEEN MEDICALLY CLEARED FOR DC HOME WITH NEW P.T. SERVICES WITH [facility]. [facility] UPDATED ON TODAY'S DC. [facility] WILL TRANSPORT.
[2023-09-02 09:55] VITALS: BP 150/80; PULSE 77; O2SAT 96
--- NOTE | 2023-09-02 10:50 | PC.NURSE ---
IV taken out of left hand. Intact, tolerated well, plan d/c shortly.
--- NOTE | 2023-09-02 13:17 | HO.POSTANES ---
Post Anesthesia Evaluation Post Anesthesia Evaluation Date of Service: 09/02/23 Vital Signs: Vital Signs Temp Pulse Resp BP Pulse Ox O2 Del Method 09/02/23 09:55 77 150/80 H 96 09/02/23 08:16 77 150/80 H 96 09/02/23 07:03 97.8 F 77 16 150/80 H 96 Room Air 09/02/23 04:00 98.0 F 78 16 133/63 96 Room Air Anesthesia: Spinal and Nerve Block Mental Status: Awake Pain Control: Satisfactory Nausea/Vomiting: None Hydration: Adequate Anesthesia-Related Issues: No Anes. Related Issues
== END 2023-09-02 11:54 | disposition home health service (06) | DRG 470 ==
LOC: HO.SSSA 07:20 → HO.S3 11:23
PROVIDERS: Physician Assistant; Admitting Provider Orthopaedic Surgery; PCP Internal Medicine; Visit Provider Orthopaedic Surgery
PROC: 0SRD0J9 Replacement of Left Knee Joint with Synthetic Substitute, Cemented, Open Approach (ICD-10-PCS; CPT 27447; principal; 2023-09-01 07:30)
DX: M17.12 Unilateral primary osteoarthritis, left knee (principal); G89.18 Other acute postprocedural pain; I10 Essential (primary) hypertension; E11.9 Type 2 diabetes mellitus without complications; Z79.899 Other long term (current) drug therapy
CPT/HCPCS: 27447; 36415; 80048; 82947; 85025; 86850; 86900; 86901; 87640; 87641; 88305; 88311; 97110; 97116; 97161; 97530; C1776; J0665; J0690; J1170; J2250; J2405; J2704; J2795; J3010; J3370; J7120

== ENCOUNTER → 2023-09-01 07:16 | Outpatient (BNV) | payer MEDICARE, SELFPAY | PROVIDERS: Admitting Provider Orthopaedic Surgery; PCP Internal Medicine; Visit Provider Internal Medicine | DX: M17.12 Unilateral primary osteoarthritis, left knee (principal) | CPT/HCPCS: 99231 ==

== ENCOUNTER → 2023-09-01 07:16 | Outpatient (BNV) | payer MEDICARE, SELFPAY | PROVIDERS: Admitting Provider Orthopaedic Surgery; PCP Internal Medicine; Visit Provider Orthopaedic Surgery | DX: Z96.652 Presence of left artificial knee joint (principal) | CPT/HCPCS: 27447; 99024 ==

== ENCOUNTER 2023-09-18 12:56 | Outpatient (AMB) | payer MEDICARE, SELFPAY ==
--- NOTE | 2023-09-18 13:03 | A.OFFVIS_ITS ---
Intake Intake Visit Reasons: post op Left TKA 09/01/23 Intake Note: Musa is a 67 year old male who presents today for a post op appointment s/p Left TKA 09/01/23 Patient reports it feels good but does have some pain when he is doing physical therapy and at night when he is trying to sleep. . Allergies hazelnut Allergy (Verified 09/18/23 13:27) Itching peach Allergy (Verified 09/18/23 13:27) Itching HPI post op Left TKA 09/01/23 HPI Details 67-year-old male who presents in the off ice today 17 days status post left total knee arthroplasty, which was performed on 09/01/[address] Wright. The patient reports he is feeling good but does have some pain when he is doing physical therapy and when he trying to sleep at night. [facility] [place] Medical History Arthritis of left knee Pilonidal cyst Skin cancer Arthritis Back pain Umbilical hernia Renal cyst Obesity, Class II, BMI 35-39.9 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, non-recurrent HTN (hypertension) BPH (benign prostatic hyperplasia) Surgical History H/O colonoscopy Hx of rotator cuff surgery Hx of toe surgery Family History Other HTN (hypertension) Social History Household Members: Spouse Housing: House Are you a primary caregivers non medical to a significant other at home: No Do you presently have visiting nurse or other home services: No Patient Tobacco Use Status: Never used Tobacco service: No Current occupational status: other Review of Systems Const All systems reviewed & are unremarkable except as noted in HPI and below Physical Exam Const General: cooperative, healthy appearing and no acute distress Resp Effort & Inspection: normal respiratory effort and able to speak in complete sentences Cardio Rate: regular rate Peripheral pulses: Peripheral pulses 2+ throughout GI Palpation (GI): Soft to palpation Skin Lesions: no lesions Rashes: no rashes Extrem Other: Left knee: Incision site is clean, dry, and intact. Thania intact. No surrounding erythema or drainage. No signs of infection. ROM is 5-95 degrees. Assessment & Plan Assessment & Plan (1) Status post total left knee replacement: Onset Date: ~09/01/23 Comment: Code(s): Z96.652 - Presence of left artificial knee joint Plan Mr. Pollack is a 67-year-old male who presents in the office today 17 days status post left total knee arthroplasty, which was performed on 09/01/[address] Wright. The patient reports he is feeling good but does have some pain when he is doing physical therapy and when he trying to sleep at night. Ko[place]kia were removed and steri-stripes were applied. He did ask about the use of a hot tub, which he is not cleared to do so at this time. He has to wait for the incision site to completely heal with no scabbing. A referral for the patient to attend physical therapy at an outside facility was provided today. Dental ppx was also sent to the pharmacy. Follow up will be in [address] Wright, or sooner if needed. Orders: Orders PT Evaluation and Treatment Today Z96.652 - Presence of left artificial knee joint Patient Instructions: Scribed by Alla Feliz medical lead, for Dipti Osman PA-C on 09/18/2023 at 12:59 pm, EST. Coding Level of Care Code Global (77544) Diagnoses Status post total left knee replacement Z96.652
== END 2023-09-18 15:25 | disposition home or self-care (01) ==
PROVIDERS: Visit Provider Physician Assistant
DX: Z96.652 Presence of left artificial knee joint (principal)
CPT/HCPCS: 99024

== ENCOUNTER → 2023-09-18 12:56 | Outpatient (BNVA) | payer MEDICARE, SELFPAY | PROVIDERS: Visit Provider Physician Assistant | DX: Z47.1 Aftercare following joint replacement surgery (principal); Z96.652 Presence of left artificial knee joint | CPT/HCPCS: 99212 ==

== ENCOUNTER 2023-10-09 10:32 | Outpatient (AMB) | payer MEDICARE, SELFPAY ==
--- NOTE | 2023-10-09 11:03 | MHC.OFFVIS ---
Intake Vital Signs 10/09/23 11:04 Height 5 ft 10 in Weight 265 lb BMI 38.0 Intake Visit Reasons: 6 wk post op Left TKA 09/01/23 Intake Note: Musa is a 67 year old male who presents with complaints of mild intermittent discomfort in his left knee after undergoing left total knee replacement surgery on 09/01/2023. Continues to go to formal physical therapy at [facility]. He denies any fevers or chills. He does take Celebrex which gives him fairly good relief of his discomfort. Patient reports he is having pain that comes and goes. He is going physical therapy and it going well. Allergies hazelnut Allergy (Verified 10/09/23 11:07) Itching peach Allergy (Verified 10/09/23 11:07) Itching Medication List - Last Reconciled 10/09/23 by Db Wright MD acetaminophen 650 mg (2 x 325 mg) PO Q6H PRN 30 days amoxicillin 2,000 mg (4 x 500 mg) PO ONCE 1 day aspirin 325 mg PO BID 42 days celecoxib 200 mg PO BID 30 days celecoxib (Celebrex) 200 mg PO DAILY PRN cholecalciferol (vitamin D3) (Vitamin D3) 125 mcg PO DAILY docusate sodium 100 mg PO BID 90 days gabapentin 100 mg PO BEDTIME 7 days lisinopril 10 mg PO DAILY methocarbamol 500 mg PO TID 7 days oxycodone 5 mg PO Q8H PRN 7 days oxycodone 5 mg PO Q8H PRN 10 days psyllium husk 0.8 grams PO TID semaglutide 0.5 mg subcut QWEEK tamsulosin 0.4 mg PO DAILY walker Folding front wheeled walker PFSH Medical History Arthritis of left knee Pilonidal cyst Skin cancer Arthritis Back pain Umbilical hernia Renal cyst Obesity, Class II, BMI 35-39.9 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, non-recurrent HTN (hypertension) BPH (benign prostatic hyperplasia) Surgical History H/O colonoscopy Hx of rotator cuff surgery Hx of toe surgery Family History Other HTN (hypertension) Social History Household Members: Spouse Housing: House Are you a primary palliative care nurse to a significant other at home: No Do you presently have visiting nurse or other home services: No Patient Tobacco Use Status: Never used Tobacco service: No Current occupational status: other Physical Exam Vital Signs: BMI result Body Mass Index 38.0 Extrem Other: Left knee examination shows that the surgical incision is well healed, no erythema, full active extension and flexion to 120 degrees, his patella tracks well Assessment & Plan Assessment & Plan (1) Status post total left knee replacement: Onset Date: ~09/01/23 Comment: DR Code(s): Z96.652 - Presence of left artificial knee joint Plan Mr. Pollack continues to do very well after undergoing left total knee replacement surgery on 09/01/2023. He will continue with his formal physical therapy for now. He will gradually transition to a home exercise program. He does know to take antibiotics before any dental work. He will contact me prior to his follow-up appointment in 2 months should any questions or concerns arise. Feel free to call me at any time should questions regarding his orthopedic management arise. Orders: Orders PT Evaluation and Treatment 10/09/23 Z96.652 - Presence of left artificial knee joint Medications: New oxycodone Partial Fill upon patient request. 5 mg PO Q8H PRN 30 tabs 0RF pain 10 days celecoxib (Celebrex) 200 mg PO DAILY PRN 30 caps 3RF pain Coding Level of Care Code Est Pt Level 2 (71328) Global (84117) Diagnoses Status post total left knee replacement Z96.652
[2023-10-09 11:04] VITALS: BMI 38.0
== END 2023-10-09 11:31 | disposition home or self-care (01) ==
PROVIDERS: Visit Provider Orthopaedic Surgery
DX: Z96.652 Presence of left artificial knee joint (principal)
CPT/HCPCS: 99024

== ENCOUNTER → 2023-10-09 10:32 | Outpatient (BNVA) | payer MEDICARE, SELFPAY | PROVIDERS: Visit Provider Orthopaedic Surgery | DX: M25.562 Pain in left knee (principal); Z47.1 Aftercare following joint replacement surgery; Z96.652 Presence of left artificial knee joint; Z79.899 Other long term (current) drug therapy | CPT/HCPCS: 99212 ==

== ENCOUNTER 2023-11-20 10:37 | Outpatient (AMB) | payer MEDICARE, SELFPAY ==
[2023-11-20 10:39] VITALS: BMI 38.0
--- NOTE | 2023-11-20 10:39 | A.OFFVIS_ITS ---
Vital Signs 11/20/23 10:39 Height 5 ft 10 in Weight 265 lb BMI 38.0 Intake Visit Reasons: post op Left TKA 09/01/23 DR-follow up Intake Note: Musa is a 67 year old male who presents for his post operative appointment s/p Left TKA 09/01/23 DR. The patient reports mild intermittent discomfort in his left knee. He denies any fevers or chills. He continues to go to formal physical therapy. He has also returned to working out at the gym with light weights. Allergies hazelnut Allergy (Verified 11/20/23 10:45) Itching peach Allergy (Verified 11/20/23 10:45) Itching Medication List - Last Reconciled 11/20/23 by Db Wright MD acetaminophen 650 mg (2 x 325 mg) PO Q6H PRN 30 days amoxicillin 2,000 mg (4 x 500 mg) PO ONCE 1 day aspirin 325 mg PO BID 42 days celecoxib 200 mg PO BID 30 days celecoxib (Celebrex) 200 mg PO DAILY PRN cholecalciferol (vitamin D3) (Vitamin D3) 125 mcg PO DAILY docusate sodium 100 mg PO BID 90 days gabapentin 100 mg PO BEDTIME 7 days lisinopril 10 mg PO DAILY methocarbamol 500 mg PO TID 7 days oxycodone 5 mg PO Q8H PRN 7 days oxycodone 5 mg PO Q12H PRN 15 days psyllium husk 0.8 grams PO TID semaglutide 0.5 mg subcut QWEEK tamsulosin 0.4 mg PO DAILY walker Folding front wheeled walker [facility] Medical History (Updated 11/20/23 @ 11:25 by Db Wright MD) Arthritis of left knee Pilonidal cyst Skin cancer Arthritis Back pain Umbilical hernia Renal cyst Obesity, Class II, BMI 35-39.9 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, non-recurrent HTN (hypertension) BPH (benign prostatic hyperplasia) Surgical History (Updated 11/20/23 @ 10:47 by Zoey Jimenez CMA) Hx of left knee surgery (~09/01/23) H/O colonoscopy Hx of rotator cuff surgery Hx of toe surgery Family History Other HTN (hypertension) Social History Household Members: Spouse Housing: House Are you a primary rn home care to a significant other at home: No Do you presently have visiting nurse or other home services: No Patient Tobacco Use Status: Never used Tobacco service: No Current occupational status: other Physical Exam Vital Signs: BMI result Body Mass Index 38.0 Const Other: Well-nourished well-developed very friendly male awake alert and oriented x3 in no acute distress Extrem Other: Bilateral lower extremity examination shows good capillary refill, no skin lesions noted, normal sensation light touch Left knee examination shows that the surgical incision is well healed, no erythema, full active extension and flexion to 110 degrees, his patella tracks well Assessment & Plan Assessment & Plan (1) Left knee pain: Code(s): M25.562 - Pain in left knee Category: Medical Plan Mr. Pollack continues do very well after undergoing left total knee replacement surgery on 09/01/2023. Will continue with his physical therapy exercises. He does know to take antibiotics before any dental work. Will contact me prior to his follow-up appointment in 3 months should any questions or concerns arise. Feel free to call me at any time should questions regarding his orthopedic management arise. Medications: Changed From oxycodone Partial Fill upon patient request. 5 mg PO Q8H 10 days PRN 30 tabs 0RF pain To oxycodone Partial Fill upon patient request. 5 mg PO Q12H PRN 30 tabs 0RF pain 15 days Coding Level of Care Code Global (30864) Diagnoses Left knee pain M25.562
== END 2023-11-20 11:09 | disposition home or self-care (01) ==
PROVIDERS: Visit Provider Orthopaedic Surgery
DX: M25.562 Pain in left knee (principal)
CPT/HCPCS: 99024

== ENCOUNTER → 2023-11-20 10:37 | Outpatient (BNVA) | payer MEDICARE, SELFPAY | PROVIDERS: Visit Provider Orthopaedic Surgery | DX: Z47.1 Aftercare following joint replacement surgery (principal); M25.562 Pain in left knee; Z96.652 Presence of left artificial knee joint | CPT/HCPCS: 99212 ==

== ENCOUNTER 2024-02-11 11:37 | Outpatient (AMB) | payer MEDICARE, SELFPAY ==
--- NOTE | 2024-02-11 11:44 | MHC.OFFVIS ---
Vital Signs 02/11/24 11:46 Height 5 ft 10 in Weight 257 lb 0.944 oz BMI 36.9 BP 132/60 Blood Pressure Location Rt brachial Position Sitting Pulse 56 Pulse Source Pulse Oximeter Pulse Oximetry (%) 97 Oxygen Delivery Method Room Air Intake Visit Reasons: pre colonoscopy Intake Note: Musa presents in office today for a scheduled initial assessment / colo scrn CC; This is scheduled as recall priority (last 2018). Pt denies any new concerns or sx. Child Care Sitter Required: No Allergies hazelnut Allergy (Verified 02/11/24 11:45) Itching peach Allergy (Verified 02/11/24 11:45) Itching Medication List - Last Reconciled 02/11/24 by CHRISTINA Santos-DANNA acetaminophen 650 mg (2 x 325 mg) PO Q6H PRN 30 days celecoxib (Celebrex) 200 mg PO DAILY PRN cholecalciferol (vitamin D3) (Vitamin D3) 125 mcg PO DAILY docusate sodium 100 mg PO BID 90 days finasteride 5 mg PO DAILY lisinopril-hydrochlorothiazide 10-12.5 mg 1 tab PO DAILY methocarbamol 500 mg PO TID 7 days psyllium husk 0.8 grams PO TID tamsulosin 0.4 mg PO DAILY tirzepatide 2.5 mg subcut QWEEK walker Folding front wheeled walker HPI HPI pre colonoscopy: Details: 68 year old? male with past medical history of arthritis of right knee, status post total left knee replacement, diabetes on Mounjaro, hypertension is here today for pre colonoscopy screening.? Patient was sent to us by his PCP.? Last colonoscopy in 2018.? Patient denies any gastrointestinal symptoms in the past or at present.? Family history of CRC.? Denies history of difficulty with sedation or anesthesia in the past.? Negative for history of sleep apnea.? Denies any history of cardiac, renal, pulmonary, or hepatic disease.?? No history of infectious? diseases like hepatitis A, B, C, HIV or tuberculosis.? Patient is not on any anticoagulation [facility] Medical History Arthritis of left knee Pilonidal cyst Skin cancer Arthritis Back pain Umbilical hernia Renal cyst Obesity, Class II, BMI 35-39.9 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, non-recurrent HTN (hypertension) BPH (benign prostatic hyperplasia) Surgical History Hx of left knee surgery (~09/01/23) H/O colonoscopy Hx of rotator cuff surgery Hx of toe surgery Family History Other HTN (hypertension) Social History Household Members: Spouse Housing: House Are you a primary intensive care unit registered nurse to a significant other at home: No Do you presently have visiting nurse or other home services: No Patient Tobacco Use Status: Never used Tobacco service: No Current occupational status: other Review of Systems Const Denies weight gain and Denies weight loss ENT Reports no additional complaints, Denies dysphagia and Denies odynophagia Card Reports no additional complaints Resp Reports no additional complaints GI Denies abdominal pain, Denies belching, Denies melena, Denies bloating, Denies change in bowel habits, Denies dysphagia, Denies excessive flatus, Denies dyspepsia, Denies heartburn, Denies diarrhea, Denies loose stools, Denies nausea, Denies odynophagia and Denies vomiting Reports no additional complaints Musc Reports no additional complaints Neuro Reports no additional complaints Psych Reports no additional complaints Endo Reports no additional complaints Physical Exam Vital Signs: Last Vital Signs Pulse 56 02/11/24 11:46 BP 132/60 02/11/24 11:46 Pulse Ox 97 02/11/24 11:46 Oxygen Delivery Method Room Air 02/11/24 11:46 BMI result Body Mass Index 36.9 Const General: healthy appearing and no acute distress Nutritional Appearance: obese Orientation/consciousness: patient oriented x3 Resp Effort & Inspection: normal respiratory effort, able to speak in complete sentences, no tracheal deviation and symmetric chest movement Auscultation: clear to auscultation bilaterally Cardio Rate: regular rate GI Inspection: Yes normal to inspection, No distended and Yes obesity Palpation (GI): Soft to palpation, not firm, nontender and No hepatosplenomegaly present Auscultation: normal bowel sounds General: Yes no CVA tenderness Back/Spine/Pelvis Back: no CVA tenderness Skin General skin exam: elasticity normal, turgor normal and dry skin Neuro General: patient oriented x3 Psych Appearance: grossly normal Mental Status: mental status grossly normal Assessment & Plan Assessment & Plan (1) Screen for colon cancer: Code(s): Z12.11 - Encounter for screening for malignant neoplasm of colon Plan Patient denies any GI, cardiac or respiratory symptoms.? Denies any issues with anesthesia in the past, last time he had anesthesia was in August of 2023 for left knee replacement.? Denies any history of sleep apnea.? No history infectious diseases in the past or present.? Not on any anticoagulation therapy.? Family history of CRC. Patient denies melena, hematochezia, unintentional weight loss or ribbon like stools.? Discussed at length the pre-procedure,? prep, diet & medications as well as what to expect prior, during and after the procedure.?? Stressed the importance of good bowel prep.? Recommended the use of Vaseline or Calmoseptine OTC & baby wipes with bowel movements to promote comfort.? ?Patient verbalizes understanding and agrees to plan of care.? He was given the opportunity to ask questions and all questions answered.? We will see him after the procedure.? Medications: New bisacodyl (Dulcolax (bisacodyl)) take 4 tabs at noon the day before your colonoscopy 20 mg (4 x 5 mg) PO ONCE 1 day 4 tabs 0RF Z12.11 - Encounter for screening for malignant neoplasm of colon polyethylene glycol 3350 (Miralax) As directed by gastroenterology department at [facility] 238 grams PO ONCE 238 grams 0RF Z12.11 - Encounter for screening for malignant neoplasm of colon Discontinued aspirin Discontinued Reason: Patient Completed Course 325 mg PO BID 42 days 84 tabs 0RF gabapentin Discontinued Reason: Patient Completed Course 100 mg PO BEDTIME 7 days 7 caps 0RF amoxicillin Discontinued Reason: Patient Completed Course 2,000 mg (4 x 500 mg) PO ONCE 1 day 4 tabs 0RF take 4 tabs by mouth 1 hour prior to dental ppx Coding Level of Care Code New Pt Level 3 (70208) Diagnoses Screen for colon cancer Z12.11 Time Spent (min) 40 Comment 30 minutes spent with patient and additional 10 minutes spent reviewing his records
[2024-02-11 11:46] VITALS: BP 132/60; PULSE 56; O2SAT 97; BMI 36.9
== END 2024-02-11 12:52 | disposition home or self-care (01) ==
PROVIDERS: Visit Provider Nurse Practitioner Family
DX: Z01.818 Encounter for other preprocedural examination (principal); Z12.11 Encounter for screening for malignant neoplasm of colon; Z80.0 Family history of malignant neoplasm of digestive organs
CPT/HCPCS: 99024

== ENCOUNTER → 2024-02-11 11:37 | Outpatient (BNVA) | payer MEDICARE, SELFPAY | PROVIDERS: Visit Provider Nurse Practitioner Family | DX: Z12.11 Encounter for screening for malignant neoplasm of colon (principal) | CPT/HCPCS: 99212 ==

== ENCOUNTER 2024-02-24 09:43 | Outpatient (REF) | payer MEDICARE, SELFPAY ==
--- NOTE | ~2024-02-24 | XR_ITS ---
EXAMINATION: XR KNEE, LEFT CLINICAL INFORMATION: Pain in left knee. COMPARISON: 07/09/2023 TECHNIQUE: 3 views of the left knee. FINDINGS: Left Knee: Large joint effusion. Status post left knee total arthroplasty. Hardware appears intact. XR/XR knee LT 3V IMPRESSION: 1. Status post left knee total arthroplasty. Hardware appears intact. 2. Large left joint effusion.
== END 2024-02-24 09:44 | disposition home or self-care (01) ==
LOC: HO.HOSX 09:43
PROVIDERS: Visit Provider Orthopaedic Surgery
DX: M25.562 Pain in left knee (principal); Z96.652 Presence of left artificial knee joint; M25.561 Pain in right knee; M17.11 Unilateral primary osteoarthritis, right knee
CPT/HCPCS: 73562; 99212

== ENCOUNTER 2024-02-24 10:13 | Outpatient (AMB) | payer MEDICARE, SELFPAY ==
--- NOTE | 2024-02-24 10:22 | A.OFFVIS_ITS ---
Vital Signs 02/24/24 10:23 Height 5 ft 10 in Weight 257 lb BMI 36.9 Intake Visit Reasons: Right knee pain Intake Note: Musa is a 68 year old male who presents with complaints of progressively worsening right knee pain. The patient did undergo left total knee replacement surgery on 09/01/2023. He denies any pain in his left knee. He describes his right knee pain as sharp and severe in nature, 10/10. His right knee pain has gotten worse over the last few years in spite of continued non operative treatments. He has had cortisone injections in the past which gave him minimal relief. He has also done physical therapy which aggravated his pain. He has tried Tylenol and anti-inflammatory medicines which gave him minimal relief. The patient has difficulty walking even short distances because of his right knee pain. At this point his right knee pain is interfering with his activities of daily living in his ability to sleep well through the night. Allergies hazelnut Allergy (Verified 02/24/24 10:27) Itching peach Allergy (Verified 02/24/24 10:27) Itching Medication List - Last Reconciled 02/24/24 by Db Wright MD acetaminophen 650 mg (2 x 325 mg) PO Q6H PRN 30 days bisacodyl (Dulcolax (bisacodyl)) 20 mg (4 x 5 mg) PO ONCE 1 day celecoxib (Celebrex) 200 mg PO DAILY PRN cholecalciferol (vitamin D3) (Vitamin D3) 125 mcg PO DAILY docusate sodium 100 mg PO BID 90 days finasteride 5 mg PO DAILY lisinopril-hydrochlorothiazide 10-12.5 mg 1 tab PO DAILY methocarbamol 500 mg PO TID 7 days polyethylene glycol 3350 (Miralax) 238 grams PO ONCE psyllium husk 0.8 grams PO TID tamsulosin 0.4 mg PO DAILY tirzepatide 2.5 mg subcut QWEEK walker Folding front wheeled walker [facility] Medical History Arthritis of left knee Pilonidal cyst Skin cancer Arthritis Back pain Umbilical hernia Renal cyst Obesity, Class II, BMI 35-39.9 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, non-recurrent HTN (hypertension) BPH (benign prostatic hyperplasia) Surgical History Hx of left knee surgery (~09/01/23) H/O colonoscopy Hx of rotator cuff surgery Hx of toe surgery Family History Other HTN (hypertension) Social History Household Members: Spouse Housing: House Are you a primary wound care specialist to a significant other at home: No Do you presently have visiting nurse or other home services: No Patient Tobacco Use Status: Never used Tobacco service: No Current occupational status: other Physical Exam Vital Signs: BMI result Body Mass Index 36.9 Const Other: Well-nourished well-developed very friendly male awake alert and oriented x3 in no acute distress Extrem Other: Bilateral lower extremity examination shows good capillary refill, no skin lesions noted, normal sensation light touch Left knee examination shows that the surgical incision is well healed, no erythema, full active extension and flexion to 120 degrees, his patella tracks well Right knee examination shows a minimal effusion, palpable crepitus with range of motion, pain with range of motion, range of motion from -3 degrees to 115 degrees, no instability Results Reviewed Results Reviewed: X-rays of the patient's right knee show end-stage degenerative joint disease with grade 4 [id number] arthritis, subchondral sclerosis, osteophyte formation, no acute bony abnormalities Assessment & Plan Assessment & Plan (1) Right knee pain: Code(s): M25.561 - Pain in right knee (2) Arthritis of right knee: Code(s): M17.11 - Unilateral primary osteoarthritis, right knee Category: Medical Plan Mr. Pollack is doing very well after undergoing left total knee replacement surgery on 09/01/2023. Does have progressively worsening right knee pain due to end-stage degenerative joint disease. I had a lengthy discussion with the patient regarding the treatment options. At this point he has failed continued non operative treatments. The risks and benefits of right total knee replacement surgery were discussed at length with the patient. The patient wishes to proceed with surgery. He will be scheduled for next available date. I will see him back 1 week prior to his surgery to answer any final questions that he might have. He will follow-up as instructed. I spent 21 minutes in reviewing the patient's records and imaging studies, seeing the patient and documenting in the medical record. Orders: Orders XR knee LT 3V Today M25.562 - Pain in left knee Coding Level of Care Code Est Pt Level 3 (93002) Diagnoses Right knee pain M25.561 Arthritis of right knee M17.11
[2024-02-24 10:23] VITALS: BMI 36.9
== END 2024-02-24 10:39 | disposition home or self-care (01) ==
PROVIDERS: Visit Provider Orthopaedic Surgery
DX: M17.11 Unilateral primary osteoarthritis, right knee (principal)
CPT/HCPCS: 99213

== ENCOUNTER → 2024-04-15 09:48 | Outpatient (BNVA) | payer MEDICARE, SELFPAY | DX: Z01.818 Encounter for other preprocedural examination (principal) ==

== ENCOUNTER 2024-05-10 | Outpatient (REF) | payer MEDICARE, SELFPAY ==
[2024-05-10 10:28] VITALS: BP 126/73; PULSE 64; RESP 18; O2SAT 98; BMI 35.4
--- NOTE | 2024-05-10 10:44 | P.CONAN_ITS ---
HPI - Anesthesia Eval Consult details Narrative: 68yo M for Right Knee Replacement Total, 05/17/24 s/p Right knee 08/2023 with spinal/block - no anesthetic issues per patient No recent illness No CP/SOB with gym 3 days weekly, yard work Anesthesia Pre-Procedure Meds Is the patient on any of the following meds?: GLP1/DPP4 PMFSH Active Problems Active Problems: All Active Problems Left knee pain (Acute) Status post total left knee replacement (Acute ~09/01/23) Arthritis of right knee (Acute) Osteoarthritis of knees, bilateral (Acute) Chronic right SI joint pain (Acute) Past Medical History Medical History Pilonidal cyst Skin cancer Arthritis Back pain Umbilical hernia Renal cyst Obesity, Class II, BMI 35-39.9 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, non-recurrent HTN (hypertension) BPH (benign prostatic hyperplasia) Arthritis of left knee Family History Family History Other HTN (hypertension) Family history of problems with anesthesia: No Surgical History Surgical History (Updated 05/10/24 @ 10:16 by Sis Clay RN) History of surgical removal of pilonidal cyst Hx of shoulder surgery History of total left knee replacement H/O colonoscopy Hx of rotator cuff surgery Hx of toe surgery History of Problems with Anesthesia: No Social History Social History Household Members: Spouse Housing: House Are you a primary respiratory care technician to a significant other at home: No Do you presently have visiting nurse or other home services: No Patient Tobacco Use Status: Never used Tobacco service: No Current occupational status: other Meds Allergies Allergy/AdvReac Type Severity Reaction Status Date / Time hazelnut Allergy Itching Verified 04/15/24 10:06 peach Allergy Itching Verified 04/15/24 10:06 Home Medications ?Medication ?Instructions ?Recorded ?Confirmed ?Last Taken ?Type tamsulosin 0.4 mg capsule 0.4 mg PO DAILY 07/17/23 05/10/24 09/01/23 History tirzepatide 2.5 mg/0.5 mL 2.5 mg subcut QWEEK 02/11/24 05/10/24 Unknown History subcutaneous pen injector amlodipine 5 mg-benazepril 10 mg 1 cap PO DAILY blood pressure 05/07/24 05/10/24 Unknown History capsule amoxicillin 500 mg capsule 2,000 mg PO ONCE 05/07/24 05/10/24 Unknown History sildenafil (pulm.hypertension) 20 20 mg PO DAILY 05/07/24 05/10/24 Unknown History mg tablet Exam Height,Weight and Vital Signs: Height 5 ft 10 in Weight 112.037 kg Last Vital Signs Pulse 64 05/10/24 10:28 Resp 18 05/10/24 10:28 BP 126/73 05/10/24 10:28 Pulse Ox 98 05/10/24 10:28 O2 Del Method Room Air 05/10/24 10:28 Pertinent Lab Results Pertinent Lab Results: CBC, BMP, A1C 04/20/24 from outside facility WNL Narrative Narrative: EKG 03/2024 NSR Airway Mallampati Class: I TM Dist: >3cm Neck ROM: Full Loose/Missing/Broken Teeth: Yes (5 x singular implants throughout) Heart: S1S2 Lungs: CTAB Assessment and Plan Assessment Anesthesia Assessment: Anesthesia Plan Discussed and PAT Visit Final Anesthetic Review Family History of Problems with Anesthesia: No History of Problems with Anesthesia: No
[2024-05-10 13:41] LABS: MRSA Nasal PCR NEGATIVE (Negative); SA Nasal PCR POSITIVE (Negative)
[2024-05-17 07:05] VITALS: BMI 35.2
--- OUTSIDE RECORDS SUMMARY | 2024-07-26 16:04 | XMS_ITS | Data Portability ---
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 injection completed Sarah Lofton [facility] 08/30/2021 15:16:51 04/20/20 21 arthrodesis of interphalangeal joint of toe completed Jake hawk MA [facility] 06/23/2024 10:12:44 04/11/20 21 injection of sacroiliac joint completed Sarah Lofton [facility] 04/17/2021 11:13:45 03/20/20 20 radiofrequency ablation of medial branch of lumbar nerve using fluoroscopic guidance completed Elizabeth Willis [facility] 03/22/2020 11:38:49 02/09/20 20 injection completed Elizabeth Willis [facility] 02/09/2020 10:28:48 10/06/19 20 injection into facet joint of lumbar spine using fluoroscopic guidance completed Elizabeth Willis [facility] 10/08/2019 09:26:08 08/16/19 20 injection of facet joint completed Elizabeth Willis [facility] 08/16/2019 13:12:12 04/26/20 19 injection completed Elizabeth Willis [facility] 04/27/2019 15:31:39 02/05/20 18 Colonoscopy completed Sarah Lofton [facility] 02/04/2018 11:32:34 03/31/20 12 arthroplasty of left shoulder completed Jake hawk MA [facility] 06/23/2024 10:13:30 incision and drainage of pilonidal cyst completed Jake hawk MA [facility] 11/26/2018 13:07:58 Imaging Results Imaging Date Name Status LastModified by Organization Details LastModified Time 01/20/2024 electrocardiogram completed isaac In-Off ice Order Internal Use Only DO Not Attach Compendium DO Not Attach Compendium, Do Not Delete/merge, [id number] 01/20/2024 10:23:31 01/20/2024 electrocardiogram completed [email or web address] In-Off ice Order Internal Use Only DO Not Attach Compendium DO Not Attach Compendium, Do Not Delete/merge, [id number] 01/20/2024 09:09:06 04/19/2024 electrocardiogram completed [email or web address] In- Office Order Internal Use Only DO Not Attach Compendium DO Not Attach Compendium, Do Not Delete/merge, [id number] 04/19/2024 14:18:43 04/19/2024 electrocardiogram completed BARCODE In-Offi ce Order Internal Use Only DO Not Attach Compendium DO Not Attach Compendium, Do Not Delete/merge, [id number] 04/21/2024 18:35:58 04/19/2024 electrocardiogram completed BARCODE In-Offi ce Order Internal Use Only DO Not Attach Compendium DO Not Attach Compendium, Do Not Delete/merge, [id number] 04/21/2024 18:35:59 Procedure Notes None recorded. Medical [...] 4:13PM BY AUSTIN BROOKS MD, ANNOTATI ON/MINERVA DUM; Not Available [...] 2:28PM BY MUSA REDDY MD, MEDICATI ON AUTO-AARVIND CTIVATIO N; Not Available Not Available Not [...] Updated DateTime 4 179.07 cm 37.8 kg/m2 247526. 16 g 64 /min 97 % 97 % 98.5 [degF] 138 mm[Hg] 81 mm[Hg] Bri Gao LPN [facility] 4 11:36:00 Date Recorded Body height Body mass index (BMI) Body weight Heart rate Oxygen saturation Oxygen saturation in Arterial blood by Pulse oximetry Body temperature Systolic blood pressure Diastolic blood pressure Provider Name and Address Organization Details Last Updated DateTime 4 179.07 cm 36.5 kg/m2 895432. 83 g 73 /min 96 % 96 % 98 [degF] 126 mm[Hg] 75 mm[Hg] Marion Marin MA [facility] 4 09:02:00 Date Recorded Body height Body mass index (BMI) Body weight Oxygen saturation Oxygen saturation in Arterial blood by Pulse oximetry Heart rate Body temperature Systolic blood pressure Diastolic blood pressure Provider Name and Address Organization Details Last Updated DateTime 4 179.07 cm 34.9 kg/m2 151970. 32 g 98 % 98 % 80 /min 98.1 [degF] 114 mm[Hg] 69 mm[Hg] Kristina Peng MA [facility] 4 08:48:06 Date Recorded Body height Body mass index (BMI) Body weight Heart rate Oxygen saturation Oxygen saturation in Arterial blood by Pulse oximetry Body temperature Systolic blood pressure Diastolic blood pressure Provider Name and Address Organization Details Last Updated DateTime 4 179.07 cm 34.7 kg/m2 713942. 13 g 83 /min 95 % 95 % 97.8 [degF] 147 mm[Hg] 75 mm[Hg] Sis Walsh MA [facility] 4 14:47:05 Date Recorded Body height Body mass index (BMI) Body weight Heart rate Oxygen saturation Oxygen saturation in Arterial blood by Pulse oximetry Body temperature Systolic blood pressure Diastolic blood pressure Provider Name and Address Organization Details Last Updated DateTime 4 179.07 cm 33.8 kg/m2 823707. 58 g 77 /min 97 % 97 % 98.4 [degF] 120 mm[Hg] 67 mm[Hg] Jake dunn MA [facility] 10:17:54 Social History Question Answer Notes LastModified by Organizat ion Details LastModified Time Tobacco Smoking Status [facility] 03/13/2022 12:57:48 Do You Have An Advance Directive? Yes Adela Pollack Information not available 03/13/2022 What Is Your Level Of Alcohol Consumption? None Drinking Was A Problem And He Stopped When He Was 36 Years Old. [id number] Information not available 05/23/2020 Is Blood Transfusion Acceptable In An Emergency? Yes [id number] Information not available 05/23/2020 What Is Your Level Of Caffeine Consumption? Moderate 3 Cups A Day Information not available 06/23/2024 How Much Tobacco Do You Chew? None [id number] Information not available 05/23/2020 Are You Currently Employed? Yes [id number] Information not available 05/23/2020 What Type Of Diet Are You Following? REGULAR [id number] Information not available 05/23/2020 Which Illicit Or Recreational Drugs Have You Used? None [id number] Information not available 05/23/2020 Do You Or Have You Ever Used E-cigarettes Or Vape? 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 [id number] Information not available 05/23/2020 When Did You [...] Material From Your Doctor Or Pharmacy? Never [email or web address] Drinksiris Information not available 05/15/2015 Have You Served In The ? No Information not available 11/13/2016 Have You Or [...] Do You Use Protection During Sex? No [id number] Information not available 05/23/2020 Do You Use [...] Start Smoking Tobacco? 14 Quit At 37 [id number] Information not available 05/23/2020 Are You Passively Exposed To Smoke? No Information not available 05/15/2015 Do You Or Have You Ever Used Smokeless Tobacco? Never Used Smokeless Tobacco [id number] Information not available 05/23/2020 How Much Tobacco Do You Smoke? No Information not available 03/13/2022 Do You Use Any Illicit Or Recreational Drugs? No Information not available 06/23/2024 Do You Use Sunscreen Routinely? No [id number] Information not available 05/23/2020 How Many Years Have You Smoked Tobacco? 21 [id number] Information not available 05/23/2020 Do You Or Have You Ever Used Any Other Forms Of Tobacco Or Nicotine? No Information not available 03/13/2022 Sex: Unknown Functional Status Question Answer Note LastModified by Organizat ion Details LastModified Time Are you able to walk? YESWOREST Information not available 03/13/2022 Are you able to care for yourself? Yes [id number] Information not available 05/23/2020 What is your [...] virus, trivalent, preservative 9 completed Dania abrams [facility] 06/23/2023 09:09:40 zoster recombinant 9 completed Dania abrams [facility] 06/23/2023 09:09:40 Influenza, split virus, quadrivalent, preservative 0 completed Dania abrams [facility] 06/23/2023 09:09:40 Influenza, split virus, quadrivalent, preservative 7 completed Jake Cespedes MA null, [facility] 06/23/2024 10:08:19 Influenza, split virus, quadrivalent, preservative 5 completed Dania L Cee null, [facility] 06/23/2023 09:09:40 Influenza, split virus, quadrivalent, preservative 6 completed Dania L Cee null, [facility] 06/23/2023 09:09:40 Influenza, split virus, quadrivalent, PF 4 completed Dania L Cee null, [facility] 06/23/2023 09:09:40 COVID-19, mRNA, LNP-S, PF, 30 mcg/0.3 mL dose 1 completed Dania L Cee null, [facility] 06/23/2023 09:09:40 Influenza, split virus, quadrivalent, preservative 8 completed Dania L Cee null, [facility] 06/23/2023 09:09:40 COVID-19, mRNA, LNP-S, PF, 30 mcg/0.3 mL dose 1 completed Dania L Cee null, [facility] 06/23/2023 09:09:40 COVID-19, mRNA, LNP-S, PF, 30 mcg/0.3 mL dose 1 completed Dania L Cee null, [facility] 06/23/2023 09:09:40 Influenza, split virus, trivalent, preservative 1 completed Dania L Cee null, [facility] 06/23/2023 09:09:40 COVID-19, mRNA, LNP-S, PF, 30 mcg/0.3 mL dose, nae-sucrose 2 completed Dania L Cee null, [facility] 06/23/2023 09:09:40 Influenza, MDCK, quadrivalent, PF 2 completed Dania Cee null, [facility] 06/23/2023 09:09:40 COVID-19, mRNA, LNP-S, bivalent, PF, 30 mcg/0.3 mL dose 2 completed Dania Cee null, [facility] 06/23/2023 09:09:40 Influenza, high-dose, quadrivalent, PF 3 completed Dania Cee null, [facility] 06/23/2023 09:09:40 COVID-19, mRNA, LNP-S, PF, nae-sucrose, 30 mcg/0.3 mL 3 completed Bri Gao LPN null, [facility] 2023 11:21:26 Pneumococcal conjugate PCV20, polysaccharide [id number] conjugate, adjuvant, PF 3 completed Kristina Peng MA null, [facility] 04/19/2024 08:42:05 Influenza, split virus, quadrivalent, preservative 7 completed Jake Cespedes MA null, [facility] 06/23/2024 10:08:19 COVID-19, mRNA, LNP-S, PF, nae-sucrose, 30 mcg/0.3 mL 4 completed Kristina Pneg MA null, [facility] 04/19/2024 08:48:26 Influenza, high-dose, trivalent, PF 4 completed Sarah Lofton null, [facility] 04/01/2024 15:24:59 Influenza, split virus, trivalent, preservative 9 completed Dania Cee null, [facility] 06/23/2023 09:09:40 Influenza, split virus, trivalent, preservative 1 completed Dania Cee null, [facility] 06/23/2023 09:09:40 Past Encounters Encounter ID Performer Location Encounter Start Date Encounter Closed Date Diagnosis/Indication Diagnosis SNOMED-CT Code Diagnosis ICD10 Code Diagnosis Note [id number] autoEComm erce [address] [place] [id number] 06/04/2007 00:00:00 [id number] autoEComm erce [address] [facility] [place] [id number] 07/11/2008 00:00:00 [id number] autoEComm erce [address] [facility] [place] [id number] 07/27/2008 00:00:00 [id number] autoEComm erce [address] [facility] [place] [id number] 10/24/2008 00:00:00 [id number] autoEComm erce [address] [facility] [place] [id number] 05/12/2009 00:00:00 [id number] autoEComm erce [address] [facility] [place] [id number] 08/08/2009 00:00:00 [id number] autoEComm erce [address] [facility] [place] [id number] 08/13/2010 00:00:00 [id number] autoEComm erce [address] [facility] [place] [id number] 07/18/2011 00:00:00 [id number] autoEComm erce [address] [facility] [place] [id number] 08/15/2011 00:00:00 [id number] autoEComm erce [address] [facility] [place] [id number] 08/18/2012 00:00:00 [id number] autoEComm erce [address] [facility] [place] [id number] 08/25/2012 00:00:00 [id number] autoEComm erce [address] [facility] [place] [id number] 07/10/2013 00:00:00 [id number] autoEComm erce [address] [facility] [place], [place] [id number] 08/19/2013 00:00:00 [id number] autoEComm erce [address] [facility] [place], [place] [id number] 09/22/2013 00:00:00 [id number] autoEComm erce [address] [facility] [place], [place] [id number] 12/20/2013 00:00:00 [id number] Radha Boy Main Office [address] [facility] [address] [place] [address] 03/17/2014 10:42:32 03/17/2014 11:33:35 Low back pain 741806381 [id number] Jayla Shar ID Main Office [address] [facility] [address] [place] [address] 08/09/2014 10:28:38 08/09/2014 11:04:19 Dysfunction of eustachian tube 05843774 sudafed, flonase. call in a week if not improving and can refer to ent [id number] Austin Stinson MD Main Office [address] [facility] [address] [place] [address] 08/12/2014 14:13:50 08/12/2014 17:18:29 Acute sinusitis 47025554 continue flonase and sudafed [id number] Main Office [address] [address] [place] [address] 11/10/2014 13:29:49 11/10/2014 14:14:40 Adult health examination 952836007 Administra tion of diphtheria, pertussis, and tetanus vaccine 534749165 Essential hypertension 04360469 Onychomycosis 636541925 [id number] Austin Stinson MD Main Office [address] [facility] [address] [place] [address] 05/15/2015 10:41:25 05/15/2015 11:30:37 Essential hypertension 06719801 I10 Nocturia 105938818 R35.1 Low back pain 262248603 M54.5 he has not seen a specialist in more than 5 years and would like to have another evaluation . [id number] Austin Stinson MD Main Office [address] [address] [place] [address] 08/22/2015 11:23:59 08/22/2015 12:07:31 Asthmatic bronchitis 767457391 J45.909 Start Z-pack as directed as symptoms are not improved in 4 weeks. Flonase spray qd and nasal saline qd. Rest and fluids. [id number] Austin Stinson MD Main Office [address] [address] [place] [address] 11/13/2015 10:03:41 11/13/2015 11:02:30 Essential hypertension 45689584 I10 Adult heal th examination 419220646 Z00.00 Mass of [facility] 707280339 R22.30 [id number] Austin Stinson MD Main Office [address] [address] [place] [address] 10/08/2016 13:24:01 10/08/2016 14:34:56 Cough 17341508 R05 25 minute office visit with greater than 50% of the visit face-to-fa ce with the patient and/or family providing counseling and/or coordinati on of care. Pneumonia 249771881 J18. 9 pt states has never had good success c zpak in past - will give levaquin [id number] Austin Stinson MD Main Office [address] [address] [place] [address] 11/13/2016 10:13:43 11/13/2016 11:06:40 Adult health examination 988521786 Z00.00 UTD with cololnosco py and due next year. UTD with immunizati ons Nocturia 841808673 R35.1 Still has episodes but improved with meds. Body mass index 30+ - obesity 254841033 E66.9 Z68.35 Discussed weight loss and he will make an effort to get this down. [id number] Austin Stinson MD Main Office [address] [address] [place] [address] 11/17/2017 12:52:19 11/17/2017 14:05:05 Adult health examination 296265727 Z00.00 Due for a colonoscop y this year and he was given info. UTD with immunizati ons Essential hypertension 46373857 I10 currently under control w/o meds Screening for malignant neoplasm of colon 600546613 Z12.11 Screening for malignant neoplasm of lung 226770394 Z12.2 Body mass index 30+ - obesity 640523191 E66.01 Z68.37 Discussed weight loss and he will make an effort to get this down. Abdominal aortic aneurysm 136780894 I71.4 His father from a AAA Benign pro static hyperplasia 041804170 N40.0 continue tamsulosin [id number] Austin Stinson MD Main Office [address] [facility] [address] [place] [id number] 08/18/2018 13:19:28 08/18/2018 14:23:45 Fever 387237624 R50.9 Acute sinusitis 64169454 J01.90 Cough 98830930 R05 [id number] Austin Stinson MD Main Office [address] [facility] [address] [place] [id number] 11/26/2018 12:53:44 11/26/2018 14:12:42 Adult health examination 890636793 Z00.00 Due for a colonoscop y in 2022. Also due for shingles vaccine Essential hypertension 98618218 I10 currently under control w/o meds Low back pain 425484311 M54.5 he has not seen a specialist in more than 5 years and would like to have another evaluation . 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 [id number] Austin Stinson MD [address] [address] [place] [address] 11/30/2019 08:40:30 11/30/2019 09:56:43 Impotence of organic origin 239502531 N52.9 Benign pro static hyperplasia 943719584 N40.0 continue tamsulosin Eczema 40122976 L30.9 [id number] Austin Stinson MD Main Office [address] [place] [address] [place] [address] 02/10/2020 14:52:35 02/10/2020 16:17:38 Adult health examination 055846115 Z00.00 Due for a colonoscop y in 2022. Also due for shingles vaccine Body mass index 30+ - obesity 017739966 E66.01 Discussed weight loss and he will make an effort to get this down. Benign pro static hyperplasia 003598944 N40.0 continue tamsulosin > His PSA is a little elevated. We will recheck this in 6 months. [id number] Austin Stinson MD Main Office [address] [place] [address] [place] [address] 08/08/2020 15:26:58 08/09/2020 10:44:38 Essential hypertension 22967055 I10 currently under control w/o meds Benign pro static hyperplasia 119384946 N40.0 continue tamsulosin > His PSA remains elevated after a recheck 6 months later. We will refer him to urology for further evaluation . [id number] Austin Stinson MD [address] [address] [place] [address] 09/11/2020 09:41:13 09/11/2020 14:28:29 Prostate specific antigen above reference range 917658525 R97.20 W/u is in progress. A repeat PSA is going to be done before a future plan is put into place. Microscopic hematuria 19 7918477 R31.29 Seen by urology and scheduled for an office cystoscopy and a CT scan largely because his father had bladder cancer 15 years ago. [id number] Matthieu Singleton MD Main Office [address] [place] [address] [place] [address] 09/22/2020 14:56:42 09/22/2020 15:51:35 Elevated blood-pressure reading without diagnosis of hypertension 358631468 R03.0 Elevated blood pressure reading in the office check his blood pressure at home with proper techniques and to keep a log and bring it to us in the next visit. Diet and exercise was discussed with patient. Signs and symptoms hypertensi on emergency discussed with patient, so he knows when to seek immediate medical attention. Given that this is the first onset I would not, consider medication at this time until he is tried some lifestyle modificati on. I advised the patient follow-up with us in 2 weeks for repeat blood pressure check. Pain of left wrist 81664 69969 96784 M25.532 There is a significan t swelling and bruising of the left wrist, in the ulnar region. Radial pulses was intact, sensation was intact. Signs and symptoms of compartmen t syndrome was discussed with patient and when he should go to the emergency room.Advis ed the patient will start naproxen 500 twice daily, he is to take it with meals, and to hydrate frequently . Side effects of upset stomach and the risks of gastric ulcers discussed. He is aware that if he has any melena or vomiting any blood or coffee-jada und emesis he should go to the hospital and stop the medication . Given that there is a scar in the same region is where he has a swelling and tenderness have also gone ahead and done an x-ray to ensure that there is no damage. In addition I advised the patient to keep the arms elevated, will send wrist splint for compressio n, hot and cold compresses . I will also put a referral for hand surgeon. [id number] Austin Stinson MD Main Office [address] [address] [place] [address] 10/05/2020 11:32:08 10/05/2020 12:09:10 Essential hypertension 87771233 I10 He checks his BP at home and the systolic is generally >150. He has never been on meds. He will start meds and continue with lifestyle changes. Swelling o f joint of left wrist [id number] M25.432 This was possible gout vs pseudogout . [id number] Austin Stinson MD Main Office [address] [address] [place] [address] 11/15/2020 13:26:08 11/15/2020 14:09:46 Essential hypertension [id number] I10 Started meds and tolerating well. He will get a new cuff since he continues to get high readings at home and the cuff is 10 years old. [id number] [facility] [address] [facility] [place] [id number] 02/01/2021 12:59:31 02/01/2021 21:41:06 Pain in right foot [id number] 66052 M79.671 Fracture of great toe 20 4341134 S92.404A [id number] [facility] [address] [address] [place] [address] 02/02/2021 09:13:08 02/02/2021 10:50:27 Closed fracture of first metatarsal bone 19244751 S92.311A Fall W19.XXXA [id number] Austin Stinson MD Main Office [address] [address] [place] [address] 03/08/2021 10:22:17 03/08/2021 11:14:39 Adult health examination 913599823 Z00.00 Due for a colonoscop y in 2022. UTD w/immuniza tions including shingles and COVID. Body mass index 40+ - severely obese 612037016 E66.01 Z68.41 Essential hypertension 30432844 I10 Good control and tolerating meds well. Continue current mgmt. Benign pro static hyperplasia 140802897 N40.0 Followed by urology. Injury of great toe 2827 91034 S99.922A He is followed by [facility] and is considerin g surgery. He has a f/u there in 6 weeks. [id number] Main Office [address] [address] [place] [address] 08/21/2021 14:56:09 08/21/2021 15:51:53 Edema of lower extremity 747825512 R60.0 Cellulitis 932074786 L03 .90 [id number] Austin Stinson MD Main Office [address] [address] [place] [address] 09/26/2021 15:41:34 09/26/2021 16:12:27 Essential hypertension 34162637 I10 Good control and tolerating meds well. Continue current mgmt. Body mass index 40+ - severely obese 621528889 E66.01 Z68.41 Low back pain 107512644 M54.50 This is chronic and he is followed by [facility] where he gets regular steroid injections making his back pain manageable . [id number] Austin Stinson MD Main Office [address] [facility] [address] [place] [address] 03/13/2022 12:55:46 03/13/2022 13:57:39 Adult health examination 813518935 Z00.00 Due for a colonoscop y in 2022. UTD w/immuniza tions including shingles and COVID. Low back pain 547192313 M54.50 This is chronic and he is followed by [facility] where he gets regular steroid injections making his back pain manageable . He would like to try a med different from ibuprofen. I will send in a script for celebrex. If that doesn't work then will try a muscle relaxant. Also advised that he look into acupunctur e and chiropract ic. Benign pro static hyperplasia 675669588 N40.0 Followed by urology. Recently had a reassuring MRI. Essential hypertension 80285038 I10 Good control and tolerating meds well. Continue current mgmt. Pain of ri ght knee region 5663743458 71179 M25.561 [id number] Austin Stinson MD Main Office [address] [facility] [address] [place] [address] 09/17/2022 10:28:48 09/17/2022 11:01:02 Essential hypertension 55273387 I10 Good control and tolerating meds well. Continue current mgmt. Thoracic back pain 94896 8004 M54.6 This sounds muscular but will check pancreas at his request and will check urine for hematuria as a sign of kidney stones. [id number] Pepper Rose [place] Main Office [address] [facility] [address] [place] [address] 02/04/2023 11:05:33 02/04/2023 11:43:18 Pain of left knee joint 7768379077 21814 M25.562 Possible ruptured Bakers cyst vs ligament damage. [id number] Jody Healy Main Office [address] [facility] [address] [place] [id number] 06/18/2023 09:54:12 06/18/2023 11:00:32 Adult health examination 752913007 Z00.00 Due for a colonoscop y; last one done by Dr Pitts in 2018. UTD w/immuniza tions including shingles, flu, tetanus and COVID. He is due for a pneumonia vaccine and will get this at his pharmacy Essential hypertension 13051614 I10 Good control when he checks it at home and tolerating meds well. Continue current mgmt. Administra tion of pneumococcal vaccine 33568599 Z23 Advised to get this at his pharmacy. Screening for malignant neoplasm of colon 998961262 Z12.[address] Pitts in 2018 in a 5-year call back. Body mass index 40+ - severely obese 745615108 Z68.41 Referred to weight loss program. Benign pro static hyperplasia with outflow obstruction 868549956 N40.1 Followed by urology and just started on finasterid e since tamsulosin alone was no longer helping. Pain of bi lateral knee joints 6470484457 28633 M25.561 M25.562 Followed at [facility] and now considerin g surgery since injections and gel no longer helpful. Morbid obesity 746663569 E66.01 Has tried for years to lose weight by adjusting his eating habits and exercise but has been unsuccessf ul. [id number] Austin Stinson MD Main Office [address] [place] [id number] 2023 11:06:39 2023 11:48:18 Essential hypertension 52404241 I10 Running a little high. Will stop his lisinopril and start him on amlodipine -benazepri l Low back pain 476727913 M54.50 This is chronic and he is followed by [facility] where he gets regular steroid injections making his back pain manageable . He has been losing weight and this has had a positive affect on his back pain. Benign pro static hyperplasia with outflow obstruction 214310687 N40.1 Followed by urology and will be getting a prostate MRI. [id number] Austin Stinson MD Main Office [address] [facility] [address] [place] [address] 01/20/2024 08:54:10 01/20/2024 09:34:36 Essential hypertension 70763506 I10 Doing well on current med. Continue. He has lost 36 lbs in the last 7 months. This is the lowest he has been in 10 years. Body mass index 30+ - obesity 387585942 E66.01 Z68.35 Followed by weight loss specialist and currently taking mounjaro once weekly. Has lost 36 lbs in 7 months. Benign pro static hyperplasia with outflow obstruction 631053779 N40.1 Followed by urology. MRI did not show any suspicious lesions. [id number] Jody Healy Main Office

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
--- OUTSIDE RECORDS SUMMARY | 2024-07-26 16:04 | XMS_ITS | Clinical Summary ---
Author Organization Unknown Care Team Providers Care Lens Gauger Name Role Phone FLORESITA SETHI, DAVID Unavailable Unavailable CESAR PT, MEL Unavailable Unavailable JAVED COLEMAN, LOLI Unavailable Unavailable Payers Payer Name Policy Type Policy Number Effective Date Expira tion Date MEDICARE.NGS.PDGM [id number] Problems Condition Name Condition Details Condition Category [...] [BMI] 39.0-39.9, ADULT Active 07-21 00:00: 00 EMT I/85 (CURRENT) USE OF ASPIRIN Active 2023-07 00:00: [...] 200 mg capsule 03-25 00:00: 00 Yes [id number] ANTI INFLAMMATOR Y Per instruc tions EVERY DAY NEEDED Per instructio ns EVERY DAY NEEDED (route: oral) Med Classific ation: Analgesic , Anti-infl ammatory or Antipyret ic tamsulosin 0.4 mg capsule 03-21 00:00: 00 Yes [id number] BPH Per instruc tions EVERY DAY Per instructio ns EVERY DAY (route: oral) Med Classific ation: Genitouri nary Therapy acetaminoph en 325 mg tablet 2023-07 00:00: 00 Yes [id number] PAIN 2 tablet EVERY 6 HOURS 2 tablet EVERY 6 HOURS (route: oral) Med Classific ation: Analgesic , Anti-infl ammatory or Antipyret ic amlodipine 5 mg-benazepr il 10 mg capsule 2023-07 00:00: 00 Yes [id number] HTN 1 capsule DAILY 1 capsule DAILY (route: oral) Med Classific ation: Cardiovas cular Therapy Agents aspirin 325 mg tablet 2023-07 00:00: 00 Yes [id number] ANTICOAGULA TION 1 tablet 2 TIMES DAILY 1 tablet 2 TIMES DAILY (route: oral) Med Classific ation: Analgesic , Anti-infl ammatory or Antipyret ic docusate sodium 100 mg tablet 2023-07 00:00: 00 Yes [id number] STOOL SOFTNER 1 tablet 2 TIMES DAILY 1 tablet 2 TIMES DAILY (route: oral) Med Classific ation: Gastroint estinal Therapy Agents gabapentin 100 mg capsule 2023-07 00:00: 00 07-06 23:59 :00 No [id number] PAIN 1 capsule BEDTIME 1 capsule BEDTIME (route: oral) Med Classific ation: Central Nervous System Agents methocarbam ol 500 mg tablet 2023-07 00:00: 00 07-06 23:59 :00 No [id number] MUSCLE RELAXER 1 tablet 3 TIMES DAILY 1 tablet 3 TIMES DAILY (route: oral) Med Classific ation: Locomotor System oxycodone 5 mg tablet 2023-07 00:00: 00 Yes [id number] PAIN 1 tablet EVERY 4 HOURS 1 tablet EVERY 4 HOURS (route: oral) Med Classific ation: Analgesic , Anti-infl ammatory or Antipyret ic Zepbound 2.5 mg/0.5 mL subcutaneou s pen injector 2023-07 00:00: 00 Yes [id number] WEIGHT LOSS 2.5 mg WEEKLY 2.5 mg [...] TO EVALUATE, OBSERVE / ASSESS, AND MONITOR, AERONAUTICAL TEST ENGINEER TO OBSERVE AND MONITOR, PROVIDE SKILLED THERAPEUTIC INTERVENTION, ACTIVITY, EDUCATION, AND TRAINING TO ADDRESS; [code = AGENCY MAY PERFORM A RESUMPTION OF CARE VISIT FOLLOWING ANY HOSPITAL ADMISSION. PT TO EVALUATE, OBSERVE / ASSESS, AND MONITOR, AERONAUTICAL TEST ENGINEER TO OBSERVE AND MONITOR, PROVIDE SKILLED THERAPEUTIC INTERVENTION, ACTIVITY, EDUCATION, AND TRAINING TO ADDRESS;] Future Scheduled Test SIT TO/FRO M STAND TRANSFERS (PT/AERONAUTICAL TEST ENGINEER) [code = SIT TO/FROM STAND TRANSFERS (PT/AERONAUTICAL TEST ENGINEER)] Future Scheduled Test PT/AERONAUTICAL TEST ENGINEER TO PROVIDE GAIT TRAINING FOR IMPROVED MOBILITY AND /OR TO NORMALIZE GAIT PATTERN [code = PT/AERONAUTICAL TEST ENGINEER TO PROVIDE GAIT TRAINING FOR IMPROVED MOBILITY AND /OR TO NORMALIZE GAIT PATTERN] Future Scheduled Test PT/AERONAUTICAL TEST ENGINEER TO PROVIDE STAIR TRAINING [code = PT/AERONAUTICAL TEST ENGINEER TO PROVIDE STAIR TRAINING] Future Scheduled Test THERAPEUTI C EXERCISES AND ESTABLISHING A HOME EXERCISE PROGRAM (PT/AERONAUTICAL TEST ENGINEER) [code = THERAPEUTIC EXERCISES AND ESTABLISHING A HOME EXERCISE PROGRAM (PT/AERONAUTICAL TEST ENGINEER)] Future Scheduled Test PT/AERONAUTICAL TEST ENGINEER TO IDENTIFY FALL RISK FACTORS; EDUCATE THE PATIENT/CAREGIVER ON WAYS TO REDUCE FALL RISK FACTORS AND ESTABLISH HOME EXERCISE PROGRAM TO MINIMIZE FALL RISK. MAY TEACH THE PATIENT FLOOR RECOVERY WHEN CLINICALLY APPROPRIATE [code = PT/AERONAUTICAL TEST ENGINEER TO IDENTIFY FALL RISK FACTORS; EDUCATE THE PATIENT/CAREGIVER ON WAYS TO REDUCE FALL RISK FACTORS AND ESTABLISH HOME EXERCISE PROGRAM TO MINIMIZE FALL RISK. MAY TEACH THE PATIENT FLOOR RECOVERY WHEN CLINICALLY APPROPRIATE] Future Scheduled Test PT/AERONAUTICAL TEST ENGINEER TO TEACH KNEE REPLACEMENT SELF-MANAGEMENT [code = PT/AERONAUTICAL TEST ENGINEER TO TEACH KNEE REPLACEMENT SELF-MANAGEMENT] Future Scheduled Test PT TO ASSE SS / AERONAUTICAL TEST ENGINEER TO MONITOR FOR AND REPORT EARLY SIGNS OF ANTICOAGULANT TOXICITY TO THE PHYSICIAN AND/OR THE RN CLINICAL GUITAR REPAIR TECHNICIAN FOR PHYSICIAN NOTIFICATION AND TO PROVIDE PATIENT/CAREGIVER EDUCATION ON ANTICOAGULANT THERAPY [code = PT TO ASSESS / AERONAUTICAL TEST ENGINEER TO MONITOR FOR AND REPORT EARLY SIGNS OF ANTICOAGULANT TOXICITY TO THE PHYSICIAN AND/OR THE RN CLINICAL GUITAR REPAIR TECHNICIAN FOR PHYSICIAN NOTIFICATION AND TO PROVIDE PATIENT/CAREGIVER EDUCATION ON ANTICOAGULANT THERAPY] Future Scheduled Test PT / AERONAUTICAL TEST ENGINEER T O MONITOR AND EDUCATE ON OXYGEN SATURATION DURING ADLS/IADLS, NOTIFY PHYSICIAN AND/OR THE RN CLINICAL GUITAR REPAIR TECHNICIAN FOR PHYSICIAN NOTIFICATION AND IF O2 SATS BELOW PHYSICIAN ORDERED PARAMETERS AFTER 10 MIN OF REST [code = PT / AERONAUTICAL TEST ENGINEER TO MONITOR AND EDUCATE ON OXYGEN SATURATION DURING ADLS/IADLS, NOTIFY PHYSICIAN AND/OR THE RN CLINICAL GUITAR REPAIR TECHNICIAN FOR PHYSICIAN NOTIFICATION AND IF O2 SATS BELOW PHYSICIAN ORDERED PARAMETERS AFTER 10 MIN OF REST] Future Scheduled Test PT / AERONAUTICAL TEST ENGINEER M AY EDUCATE ON PAIN MANAGEMENT CLINICALLY INDICATED, INCLUDING NON-PHARMACOLOGICAL PAIN REDUCTION TECHNIQUES AND USE OF CRYOTHERAPY UP TO 20 MIN AT A TIME FOR PAIN MANAGEMENT 4 TIMES PER DAY TO RIGHT KNEE [code = PT / AERONAUTICAL TEST ENGINEER MAY EDUCATE ON PAIN MANAGEMENT CLINICALLY INDICATED, INCLUDING NON-PHARMACOLOGICAL PAIN REDUCTION TECHNIQUES AND USE OF CRYOTHERAPY UP TO 20 MIN AT A TIME FOR PAIN MANAGEMENT 4 TIMES PER DAY TO RIGHT KNEE ] Future Scheduled Test PT / AERONAUTICAL TEST ENGINEER T O OBSERVE WOUND/INCISION AND/OR INTACT DRESSING ON RIGHT KNEE AND REPORT EARLY SIGNS AND SYMPTOMS OF WOUND DETERIORATION, COMPLICATIONS, OR INFECTION TO PHYSICIAN AND/OR THE RN CLINICAL GUITAR REPAIR TECHNICIAN FOR PHYSICIAN NOTIFICATION. [code = PT / AERONAUTICAL TEST ENGINEER TO OBSERVE WOUND/INCISION AND/OR INTACT DRESSING ON RIGHT KNEE AND REPORT EARLY SIGNS AND SYMPTOMS OF WOUND DETERIORATION, COMPLICATIONS, OR INFECTION TO PHYSICIAN AND/OR THE RN CLINICAL GUITAR REPAIR TECHNICIAN FOR PHYSICIAN NOTIFICATION.] Goal 2024-07-12 Patient Goal [...] End Date/Time Encounter Type Admission Type Attending [facility] Care Facility Care Department Encounter ID Discharge Date Discharge Status Discharge Condition Discharge Reason Percent Goals Met 2024-06-30 00:00:00 2024-07-12 00:00:00 Outpatient NEW ADMISSION [facility] [id number] 2024-07-12 00:00:00 DISCHARGE TO HOME OR SELF CARE INDEPENDEN T WITH USE OF ASSISTIVE DEVICE HH ONLY - OUT PATIENT 92.86
--- OUTSIDE RECORDS SUMMARY | 2024-07-26 16:05 | XMS_ITS | Clinical Summary ---
Author Organization Unknown Care Team Providers Care Meter/Relay Craftsman Name Role Phone FLORESITA SETHI, DAVID Unavailable Unavailable CESAR PT, MEL Unavailable Unavailable JAVED COLEMAN, LOLI Unavailable Unavailable Payers Payer Name Policy Type Policy Number Effective Date Expira tion Date MEDICARE.NGS.PDGM [id number] Problems Condition Name Condition Details Condition Category [...] [BMI] 39.0-39.9, ADULT Active 07-21 00:00: 00 ROUNDER AND BACKER (CURRENT) USE OF ASPIRIN Active 2023-07 00:00: [...] 200 mg capsule 03-25 00:00: 00 Yes [id number] ANTI INFLAMMATOR Y Per instruc tions EVERY DAY NEEDED Per instructio ns EVERY DAY NEEDED (route: oral) Med Classific ation: Analgesic , Anti-infl ammatory or Antipyret ic tamsulosin 0.4 mg capsule 03-21 00:00: 00 Yes [id number] BPH Per instruc tions EVERY DAY Per instructio ns EVERY DAY (route: oral) Med Classific ation: Genitouri nary Therapy acetaminoph en 325 mg tablet 2023-07 00:00: 00 Yes [id number] PAIN 2 tablet EVERY 6 HOURS 2 tablet EVERY 6 HOURS (route: oral) Med Classific ation: Analgesic , Anti-infl ammatory or Antipyret ic amlodipine 5 mg-benazepr il 10 mg capsule 2023-07 00:00: 00 Yes [id number] HTN 1 capsule DAILY 1 capsule DAILY (route: oral) Med Classific ation: Cardiovas cular Therapy Agents aspirin 325 mg tablet 2023-07 00:00: 00 Yes [id number] ANTICOAGULA TION 1 tablet 2 TIMES DAILY 1 tablet 2 TIMES DAILY (route: oral) Med Classific ation: Analgesic , Anti-infl ammatory or Antipyret ic docusate sodium 100 mg tablet 2023-07 00:00: 00 Yes [id number] STOOL SOFTNER 1 tablet 2 TIMES DAILY 1 tablet 2 TIMES DAILY (route: oral) Med Classific ation: Gastroint estinal Therapy Agents gabapentin 100 mg capsule 2023-07 00:00: 00 07-06 23:59 :00 No [id number] PAIN 1 capsule BEDTIME 1 capsule BEDTIME (route: oral) Med Classific ation: Central Nervous System Agents methocarbam ol 500 mg tablet 2023-07 00:00: 00 07-06 23:59 :00 No [id number] MUSCLE RELAXER 1 tablet 3 TIMES DAILY 1 tablet 3 TIMES DAILY (route: oral) Med Classific ation: Locomotor System oxycodone 5 mg tablet 2023-07 00:00: 00 Yes [id number] PAIN 1 tablet EVERY 4 HOURS 1 tablet EVERY 4 HOURS (route: oral) Med Classific ation: Analgesic , Anti-infl ammatory or Antipyret ic Zepbound 2.5 mg/0.5 mL subcutaneou s pen injector 2023-07 00:00: 00 Yes [id number] WEIGHT LOSS 2.5 mg WEEKLY 2.5 mg [...] TO EVALUATE, OBSERVE / ASSESS, AND MONITOR, PARACHUTE PANEL JOINER TO OBSERVE AND MONITOR, PROVIDE SKILLED THERAPEUTIC INTERVENTION, ACTIVITY, EDUCATION, AND TRAINING TO ADDRESS; [code = AGENCY MAY PERFORM A RESUMPTION OF CARE VISIT FOLLOWING ANY HOSPITAL ADMISSION. PT TO EVALUATE, OBSERVE / ASSESS, AND MONITOR, PARACHUTE PANEL JOINER TO OBSERVE AND MONITOR, PROVIDE SKILLED THERAPEUTIC INTERVENTION, ACTIVITY, EDUCATION, AND TRAINING TO ADDRESS;] Future Scheduled Test SIT TO/FRO M STAND TRANSFERS (PT/PARACHUTE PANEL JOINER) [code = SIT TO/FROM STAND TRANSFERS (PT/PARACHUTE PANEL JOINER)] Future Scheduled Test PT/PARACHUTE PANEL JOINER TO PROVIDE GAIT TRAINING FOR IMPROVED MOBILITY AND /OR TO NORMALIZE GAIT PATTERN [code = PT/PARACHUTE PANEL JOINER TO PROVIDE GAIT TRAINING FOR IMPROVED MOBILITY AND /OR TO NORMALIZE GAIT PATTERN] Future Scheduled Test PT/PARACHUTE PANEL JOINER TO PROVIDE STAIR TRAINING [code = PT/PARACHUTE PANEL JOINER TO PROVIDE STAIR TRAINING] Future Scheduled Test THERAPEUTI C EXERCISES AND ESTABLISHING A HOME EXERCISE PROGRAM (PT/PARACHUTE PANEL JOINER) [code = THERAPEUTIC EXERCISES AND ESTABLISHING A HOME EXERCISE PROGRAM (PT/PARACHUTE PANEL JOINER)] Future Scheduled Test PT/PARACHUTE PANEL JOINER TO IDENTIFY FALL RISK FACTORS; EDUCATE THE PATIENT/CAREGIVER ON WAYS TO REDUCE FALL RISK FACTORS AND ESTABLISH HOME EXERCISE PROGRAM TO MINIMIZE FALL RISK. MAY TEACH THE PATIENT FLOOR RECOVERY WHEN CLINICALLY APPROPRIATE [code = PT/PARACHUTE PANEL JOINER TO IDENTIFY FALL RISK FACTORS; EDUCATE THE PATIENT/CAREGIVER ON WAYS TO REDUCE FALL RISK FACTORS AND ESTABLISH HOME EXERCISE PROGRAM TO MINIMIZE FALL RISK. MAY TEACH THE PATIENT FLOOR RECOVERY WHEN CLINICALLY APPROPRIATE] Future Scheduled Test PT/PARACHUTE PANEL JOINER TO TEACH KNEE REPLACEMENT SELF-MANAGEMENT [code = PT/PARACHUTE PANEL JOINER TO TEACH KNEE REPLACEMENT SELF-MANAGEMENT] Future Scheduled Test PT TO ASSE SS / PARACHUTE PANEL JOINER TO MONITOR FOR AND REPORT EARLY SIGNS OF ANTICOAGULANT TOXICITY TO THE PHYSICIAN AND/OR THE RN CLINICAL ELECTRONIC PREPRESS TECHNICIAN FOR PHYSICIAN NOTIFICATION AND TO PROVIDE PATIENT/CAREGIVER EDUCATION ON ANTICOAGULANT THERAPY [code = PT TO ASSESS / PARACHUTE PANEL JOINER TO MONITOR FOR AND REPORT EARLY SIGNS OF ANTICOAGULANT TOXICITY TO THE PHYSICIAN AND/OR THE RN CLINICAL ELECTRONIC PREPRESS TECHNICIAN FOR PHYSICIAN NOTIFICATION AND TO PROVIDE PATIENT/CAREGIVER EDUCATION ON ANTICOAGULANT THERAPY] Future Scheduled Test PT / PARACHUTE PANEL JOINER T O MONITOR AND EDUCATE ON OXYGEN SATURATION DURING ADLS/IADLS, NOTIFY PHYSICIAN AND/OR THE RN CLINICAL ELECTRONIC PREPRESS TECHNICIAN FOR PHYSICIAN NOTIFICATION AND IF O2 SATS BELOW PHYSICIAN ORDERED PARAMETERS AFTER 10 MIN OF REST [code = PT / PARACHUTE PANEL JOINER TO MONITOR AND EDUCATE ON OXYGEN SATURATION DURING ADLS/IADLS, NOTIFY PHYSICIAN AND/OR THE RN CLINICAL ELECTRONIC PREPRESS TECHNICIAN FOR PHYSICIAN NOTIFICATION AND IF O2 SATS BELOW PHYSICIAN ORDERED PARAMETERS AFTER 10 MIN OF REST] Future Scheduled Test PT / PARACHUTE PANEL JOINER M AY EDUCATE ON PAIN MANAGEMENT CLINICALLY INDICATED, INCLUDING NON-PHARMACOLOGICAL PAIN REDUCTION TECHNIQUES AND USE OF CRYOTHERAPY UP TO 20 MIN AT A TIME FOR PAIN MANAGEMENT 4 TIMES PER DAY TO RIGHT KNEE [code = PT / PARACHUTE PANEL JOINER MAY EDUCATE ON PAIN MANAGEMENT CLINICALLY INDICATED, INCLUDING NON-PHARMACOLOGICAL PAIN REDUCTION TECHNIQUES AND USE OF CRYOTHERAPY UP TO 20 MIN AT A TIME FOR PAIN MANAGEMENT 4 TIMES PER DAY TO RIGHT KNEE ] Future Scheduled Test PT / PARACHUTE PANEL JOINER T O OBSERVE WOUND/INCISION AND/OR INTACT DRESSING ON RIGHT KNEE AND REPORT EARLY SIGNS AND SYMPTOMS OF WOUND DETERIORATION, COMPLICATIONS, OR INFECTION TO PHYSICIAN AND/OR THE RN CLINICAL ELECTRONIC PREPRESS TECHNICIAN FOR PHYSICIAN NOTIFICATION. [code = PT / PARACHUTE PANEL JOINER TO OBSERVE WOUND/INCISION AND/OR INTACT DRESSING ON RIGHT KNEE AND REPORT EARLY SIGNS AND SYMPTOMS OF WOUND DETERIORATION, COMPLICATIONS, OR INFECTION TO PHYSICIAN AND/OR THE RN CLINICAL ELECTRONIC PREPRESS TECHNICIAN FOR PHYSICIAN NOTIFICATION.] Goal 2024-07-12 Patient [...] End Date/Time Encounter Type Admission Type Attending [facility] Care Facility Care Department Encounter ID Discharge Date Discharge Status Discharge Condition Discharge Reason Percent Goals Met 2024-06-30 00:00:00 2024-07-12 00:00:00 Outpatient NEW ADMISSION MEL [facility] [id number] 2024-07-12 00:00:00 DISCHARGE TO HOME OR SELF CARE INDEPENDEN T WITH USE OF ASSISTIVE DEVICE HH ONLY - OUT PATIENT 92.86
== END 2024-05-10 00:01 | disposition home or self-care (01) ==
LOC: HO.PAT
PROVIDERS: Nurse Practitioner; PCP Internal Medicine; Visit Provider Orthopaedic Surgery
DX: Z01.818 Encounter for other preprocedural examination (principal); M17.11 Unilateral primary osteoarthritis, right knee; I10 Essential (primary) hypertension
CPT/HCPCS: 86850; 86900; 86901; 87640; 87641; J3370

== ENCOUNTER 2024-05-13 09:44 | Outpatient (AMB) | payer MEDICARE, SELFPAY ==
--- NOTE | 2024-05-13 10:19 | A.OFFVIS_ITS ---
Vital Signs 05/13/24 10:20 Height 5 ft 10 in Weight 257 lb BMI 36.9 Intake Visit Reasons: Right knee pain Intake Note: Musa is a 68 year old male who presents with complaints of progressively worsening right knee pain. The patient did undergo left total knee replacement surgery on 09/01/2023. He denies any pain in his left knee. He describes his right knee pain as sharp and severe in nature, 04/29. His right knee pain has gotten worse over the last few years in spite of continued non operative treatments. He has had cortisone injections in the past which gave him minimal relief. He has also done physical therapy which aggravated his pain. He has tried Tylenol and anti-inflammatory medicines which gave him minimal relief. The patient has difficulty walking even short distances because of his right knee pain. At this point his right knee pain is interfering with his activities of daily living in his ability to sleep well through the night. Allergies hazelnut Allergy (Verified 05/13/24 10:22) Itching peach Allergy (Verified 05/13/24 10:22) Itching Medication List - Last Reconciled 05/13/24 by Db Wrgiht MD acetaminophen 650 mg (2 x 325 mg) PO Q6H PRN 30 days amlodipine-benazepril 5-10 mg 1 cap PO DAILY amoxicillin 2,000 mg PO ONCE celecoxib (Celebrex) 200 mg PO DAILY PRN sildenafil (pulm.hypertension) 20 mg PO DAILY tamsulosin 0.4 mg PO DAILY tirzepatide 2.5 mg subcut QWEEK walker Folding front wheeled walker walker Folding front wheeled walker [facility] Medical History Pilonidal cyst Skin cancer Arthritis Back pain Umbilical hernia Renal cyst Obesity, Class II, BMI 35-39.9 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, non-recurrent HTN (hypertension) BPH (benign prostatic hyperplasia) Arthritis of left knee Surgical History History of surgical removal of pilonidal cyst Hx of shoulder surgery History of total left knee replacement H/O colonoscopy Hx of rotator cuff surgery Hx of toe surgery Family History Other HTN (hypertension) Social History Household Members: Spouse Housing: House Are you a primary critical care registered nurse to a significant other at home: No Do you presently have visiting nurse or other home services: No Patient Tobacco Use Status: Never used Tobacco Use of substances other than those prescribed or required for medical reasons: No Have you been hit, kicked, punched, or otherwise hurt by someone within the past year? If so, by whom?: No Are you DNR?: No Advance Directives: No Advance Directives Information Provided: No Advance Directives on File: No Recently lost weight without trying: No Eating poorly because of decreased appetite: No Nutrition Risks: No Nutritional Risk Poor oral hygiene: Yes (implants x 5) service: No Current occupational status: other Physical Exam Vital Signs: BMI result Body Mass Index 36.9 Const Other: Well-nourished well-developed very friendly male awake alert and oriented x3 in no acute distress Extrem Other: Bilateral lower extremity examination shows good capillary refill, no skin lesions noted, normal sensation light touch Right knee examination shows a minimal effusion, palpable crepitus range of motion, pain with range of motion, range of motion from -3 degrees to 115 degrees, no instability Results Reviewed Results Reviewed: X-rays of the patient's right knee taken previously show end-stage degenerative joint disease with grade 4 [id number] arthritis, subchondral sclerosis, osteophyte formation, no acute bony abnormalities Assessment & Plan Assessment & Plan (1) Right knee pain: Code(s): M25.561 - Pain in right knee (2) Arthritis of right knee: Code(s): M17.11 - Unilateral primary osteoarthritis, right knee Category: Medical Plan Mr. Pollack presents with right knee pain due to end-stage degenerative joint disease. I had a lengthy discussion with the patient regarding the treatment options. At this point he has failed continued non operative treatments. The risks and benefits of right total knee replacement surgery were discussed at length with the patient. The patient wishes to proceed with surgery. office services manager will be consulted following his surgery for home physical therapy and nursing. The patient will follow-up as instructed. Well-nourished well-developed very friendly male awake alert and oriented x3 in no acute distress Coding Level of Care Code Est Pt Level 3 (44135) Complex EM visit Add On G2211 Diagnoses Right knee pain M25.561 Arthritis of right knee M17.11
[2024-05-13 10:20] VITALS: BMI 36.9
== END 2024-05-13 10:44 | disposition home or self-care (01) ==
PROVIDERS: Visit Provider Orthopaedic Surgery
DX: M17.11 Unilateral primary osteoarthritis, right knee (principal)
CPT/HCPCS: 99213; G2211

== ENCOUNTER → 2024-05-13 09:44 | Outpatient (BNVA) | payer MEDICARE, SELFPAY | PROVIDERS: Visit Provider Orthopaedic Surgery | DX: M17.11 Unilateral primary osteoarthritis, right knee (principal) | CPT/HCPCS: 99212 ==

== ENCOUNTER 2024-06-24 08:42 | Outpatient (AMB) | payer MEDICARE, SELFPAY ==
--- NOTE | 2024-06-24 08:49 | A.OFFVIS_ITS ---
Vital Signs 06/24/24 08:52 Height 5 ft 10 in Weight 245 lb 2 oz BMI 35.2 Intake Visit Reasons: Right knee pain Intake Note: Musa is a 68 year old male who presents with complaints of progressively worsening right knee pain. The patient did undergo left total knee replacement surgery on 09/01/2023. He denies any pain in his left knee. He describes his right knee pain as sharp and severe in nature, 10/10. His right knee pain has gotten worse over the last few years in spite of continued non operative treatments. He has done physical therapy which aggravated his pain. He has also tried Tylenol and for a medicines which gave him minimal relief. He has had injections in the past. The most recent injection gave no relief. Patient has difficulty walking even short distances because of his pain. At this point his left knee pain is interfering with his activities of daily living and his ability to sleep well through the night. today for a pre operative visit for a right total knee arthroplasty w/ Dr Wright 06/28/2024. Allergies hazelnut Allergy (Verified 06/24/24 08:52) Itching peach Allergy (Verified 06/24/24 08:52) Itching Medication List - Last Reconciled 06/24/24 by Db Wrgiht MD acetaminophen 650 mg (2 x 325 mg) PO Q6H PRN 30 days amlodipine-benazepril 5-10 mg 1 cap PO DAILY celecoxib (Celebrex) 200 mg PO DAILY PRN sildenafil (pulm.hypertension) 20 mg PO DAILY tamsulosin 0.4 mg PO DAILY tirzepatide 2.5 mg subcut QWEEK walker Folding front wheeled walker walker Folding front wheeled walker [facility] Medical History Pilonidal cyst Skin cancer Arthritis Back pain Umbilical hernia Renal cyst Obesity, Class II, BMI 35-39.9 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, non-recurrent HTN (hypertension) BPH (benign prostatic hyperplasia) Arthritis of left knee Surgical History History of surgical removal of pilonidal cyst Hx of shoulder surgery History of total left knee replacement H/O colonoscopy Hx of rotator cuff surgery Hx of toe surgery Family History Other HTN (hypertension) Social History Household Members: Spouse Housing: House Are you a primary early breastfeeding care specialist to a significant other at home: No Do you presently have visiting nurse or other home services: No Patient Tobacco Use Status: Never used Tobacco service: No Current occupational status: other Physical Exam Vital Signs: BMI result Body Mass Index 35.2 Const Other: Well-nourished well-developed very friendly male awake alert and oriented x3 in no acute distress Extrem Other: Bilateral lower extremity examination shows good capillary refill, no skin lesions noted, normal sensation light touch Right knee examination shows a minimal effusion, palpable crepitus with range of motion, pain with range of motion, range of motion from -3 degrees to 115 degrees, no instability Results Reviewed Results Reviewed: X-rays of the patient's right knee taken previously show end-stage degenerative joint disease with grade 4 [id number] arthritis, subchondral sclerosis, osteophyte formation, no acute bony abnormalities Assessment & Plan Assessment & Plan (1) Right knee pain: Code(s): M25.561 - Pain in right knee (2) Arthritis of right knee: Code(s): M17.11 - Unilateral primary osteoarthritis, right knee Category: Medical Plan Mr. Pollack presents with progressively worsening right knee pain due to end-stage degenerative joint disease. I had a lengthy discussion with the patient regarding the treatment options. At this point he has failed continued non operative treatments. The risks and benefits of right total knee replacement surgery were discussed at length with the patient. The patient wishes to proceed with surgery. accounting advisory services manager will be consulted following his surgery for home physical therapy and nursing. The patient will follow-up as instructed. I spent 22 minutes in reviewing the patient's records and imaging studies, seeing the patient and documenting in the medical record. Coding Level of Care Code Est Pt Level 3 (51458) Complex EM visit Add On G2211 Diagnoses Right knee pain M25.561 Arthritis of right knee M17.11
[2024-06-24 08:52] VITALS: BMI 35.2
--- OUTSIDE RECORDS SUMMARY | 2024-06-30 00:27 | XMS_ITS | Continuity of Care Document ---
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 Paternal Grandfather Malignant tumor of colon [email or web address] Not available 11/12 10:23:13 Father Malignant neoplasm of urinary bladder 88 [email or web address] Not available 05/22 10:35:37 Father Aortic aneurysm repair ed 1999 [email or web address] Not available 03/13/2022 12:56:26 Brother Malignant tumor of lung 47 [email or web address] Not available 05/22 10:44:43 Medical History Condition Response Arthritis Y Polyps Y Cancer Y Hypertension Y Immunizations Vaccine Type Date Status Provider Name and Address Organization Details Recorded Time Tdap 11/10/2014 completed Not Available [facility] 02:21:44 Influenza, split virus, trivalent, preservative 03/31/2019 completed Dania abrams [facility] 06/23/2023 09:09:40 zoster recombinant 03/31/[facility] 09:09:40 Influenza, split virus, quadrivalent, preservative 03/17/2020 completed Dania abrams [facility] 06/23/2023 09:09:40 Influenza, split virus, quadrivalent, preservative 04/23/2017 completed GRACE Adams, [facility] 06/23/2024 10:08:19 Influenza, split virus, quadrivalent, preservative 04/27/2015 completed Dania abrams [facility] 06/23/2023 09:09:40 Influenza, split virus, quadrivalent, preservative 04/17/2016 completed Dania abrams [facility] 06/23/2023 09:09:40 Influenza, split virus, quadrivalent, PF 04/20/2014 completed Dania abrams [facility] 06/23/2023 09:09:40 COVID-19, mRNA, LNP-S, PF, 30 mcg/0.3 mL dose 05/21/2021 [facility] 09:09:40 Influenza, split virus, quadrivalent, preservative 04/22/2018 completed Dania abrams [facility] 06/23/2023 09:09:40 COVID-19, mRNA, LNP-S, PF, 30 mcg/0.3 mL dose 09/30/2020 completed Dania Cee null, [facility] 06/23/2023 09:09:40 COVID-19, mRNA, LNP-S, PF, 30 mcg/0.3 mL dose 09/07/2020 completed Dania Cee null, [facility] 06/23/2023 09:09:40 Influenza, split virus, trivalent, preservative 03/21/2021 completed Dania Cee null, [facility] 06/23/2023 09:09:40 COVID-19, mRNA, LNP-S, PF, 30 mcg/0.3 mL dose, nae-sucrose 10/18/2021 completed Dania Cee null, [facility] 06/23/2023 09:09:40 Influenza, MDCK, quadrivalent, PF 03/27/2022 completed Dania Cee null, [facility] 06/23/2023 09:09:40 COVID-19, mRNA, LNP-S, bivalent, PF, 30 mcg/0.3 mL dose 03/27/2022 completed Dania Cee null, [facility] 06/23/2023 09:09:40 Influenza, high-dose, quadrivalent, PF 04/11/2023 completed Dania Cee null, [facility] 06/23/2023 09:09:40 COVID-19, mRNA, LNP-S, PF, nae-sucrose, 30 mcg/0.3 mL 04/11/2023 completed Bri Gao LPN null, [facility] 2023 11:21:26 Pneumococcal conjugate PCV20, polysaccharide [id number] conjugate, adjuvant, PF 06/20/2023 completed Kristina Peng MA null, [facility] 04/19/2024 08:42:05 Influenza, split virus, quadrivalent, preservative 04/23/2017 completed Alexia Cespedes MA null, [facility] 06/23/2024 10:08:19 COVID-19, mRNA, LNP-S, PF, nae-sucrose, 30 mcg/0.3 mL 03/30/2024 completed Kristina Peng MA null, [facility] 04/19/2024 08:48:26 Influenza, high-dose, trivalent, PF 03/30/2024 completed Sarah Lofton null, [facility] 04/01/2024 15:24:59 Influenza, split virus, trivalent, preservative 05/12/2009 completed Dania Cee null, [facility] 06/23/2023 09:09:40 Influenza, split virus, trivalent, preservative 05/21/2011 completed Dania Cee [facility], [facility] 06/23/2023 09:09:40 Past Encounters Encounter ID Performer Location Encounter Start Date Encounter Closed Date Diagnosis/Indication Diagnosis SNOMED-CT Code Diagnosis ICD10 Code [id number] GURMEET KING Main Office [address] [facility] [address] [place] [address] 05/26/2024 14:30:29 05/26/2024 14:56:52 Pneumonia 291074847 J18.9 [id number] Waldemar Stinson MD Main Office [address] [facility] [address] [place] [address] 06/23/2024 09:52:42 06/23/2024 10:48:21 Adult health examination 485146305 Z00.00 Benign pro static hyperplasia with outflow obstruction 561958905 N40.1 Nocturia 697241303 R35.1 Essential hypertension 08322146 I10 Body mass index 30+ - obesity 967214483 Z68.30 E66.9 Advance care planning 71 0894487 Z71.89 Health Concerns Section Related Observation LastModified by Organization Detai ls LastModified Time None Recorded Concern Status LastModified by Organization Details LastModified Time None Recorded Payers Encounter Date Sequence Insurance Name Policy Number Policy Campo Covered Member ID Campo Member ID Guarantor Name 06/23/2024 2 [place] [id number] Silvano Pollack [id number] Silvano Humphreyo 06/23/2024 1 [place] [employer] Silvano Pollack [id number] Silvano Humphreyo Notes Date Note Type Note Provider Name and Address Organization Details Recorded Time 06/23/2024 text/html Generic HPI TemplateReported bypatient.Notes:Had a left knee replacement earlier this year and doing well. Now scheduled for the right knee replacement 06/28/24 (5 days).Medicare Annual Wellness VisitReported bypatient.Diet and Nutrition:healthy diet; discussed diet improvement Fracture Risk:history of fractures(right toe 2020; had surgery) Physical Activity:exercises on a regular basis (goes to the gym a few days a week.); good physical condition; discussed exercise habits Depression Risk:no history of depression; no history of mood disorders Orientation:no disorientation to time; no disorientation to date; no disorientation to place Concentration and Memory:no decreased concentrating ability; no memory lapses or loss; does not forget words Hearing:no loss of hearing Vision:no vision problems Activities of Daily Living:able to bathe with limited or no assistance; able to contol urination and bowels; able to dress with limited or no assistance; able to feed self with limited or no assistance; able to get out of chair or bed with limited or no assistance; able to groom with limited or no assistance; able to toilet with limited or no assistance Instrumental Activities of Daily Living:able to do house work with limited or no assistance; able to grocery shop with limited or no assistance; able to manage medications with limited or no assistance; able to manage money with limited or no assistance; able to prepare meals with limited or no assistance; able to use the phone with limited or no assistance Falls Risk Assessment:no frequent falls while walking Due for a pneumonia vaccine.Due for a colonoscopy. Last one done by Dr Pitts in 2018 with a 5-year call back. He is scheduled for October 04, 2024 in [place].Still working and may be retiring sometime in the next couple of years. Waldemar Stinson MD [address] [address], [place], [address], [facility] 06/23/2024 11:01:51
--- OUTSIDE RECORDS SUMMARY | 2024-06-30 00:27 | XMS_ITS | Data Portability ---
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 POSSIBLE SECONDAR Y BACTERIA L PROCESS. SINUS IRRIGATI ON ADVISED WELL. CALL INB/WORS E OR WITH ANY TROUBLE ON ABX.; RECORDED 08/19/19 14 9:45AM BY YAYO ROB ON/ADDEN GRACE Balderrama, [facility] 9 13:06:52 Tobacco user [id number] Completed 201202/28/2014 RECORDED 08/25/19 13 10:31AM BY YAYO ROB ON/ADDEN ARIADNA Stinson MD [address] [facility] [address], [place], [address] , [facility] 6 10:39:47 Hyperpla juan of prostate 151718174 Completed 201202/28/2014 RECORDED 08/25/19 13 10:31AM BY YAYO ROB ON/MINERVA Stinson MD [address] [facility] [address], [place], [address] , [facility] 6 10:39:48 Screenin g for malignan t neoplasm of colon Completed 201202/28/2014 RECORDED 08/18/19 13 8:46AM BY YAYO ROB ON/MINERVA Stinson MD [address] [facility] [address], [place], [address] , [facility] 6 10:39:48 Cough 17987251 Completed 200802/28/2014 RECORDED 07/25/19 09 2:28PM BY YAYO PELAYO ON/MINERVA Stinson MD [address] [facility] [address], [place], [address] , [facility] 6 10:39:48 Enthesop athy of knee 52327252 Completed 201202/28/2014 RECORDED 08/18/19 13 8:46AM BY YAYO ROB ON/MINERVA Stinson MD [address] [facility] [address], [place], [address] , [facility] 6 10:39:48 Influenz a vaccine needed 02163278370 06 Completed 200802/28/2014 RECORDED 05/12/20 09 10:19AM BY JAKE MOSLEY MA, OFFICE VISIT Austin Stinson MD [address] [facility] [address], [place], [address] , [facility] 6 10:39:48 Influenz a with respirat ory manifest ation other than pneumoni a Completed 201302/28/2014 IMPRESSI ON: ADVISED TO REST, TAKE FLUIDS AND TAKE NSAIDS.; RECORDED 08/19/19 14 9:44AM BY YAYO ROB ON/MINERVA Stinson MD [address] [facility] [address], [place], [address] , [facility] 6 10:39:48 General examinat ion of patient Completed 200802/28/2014 RECORDED 07/25/19 09 2:28PM BY YAYO PELAYO ON/MINERVA Stinson MD [address] [facility] [address], [place], [address] , [facility] 6 10:39:48 Shoulder joint pain 160663991 Completed 201202/28/2014 RECORDED 08/18/19 13 8:46AM BY YAYO ROB ON/MINERVA Stinson MD [address] [address], [place], [address] , [facility] 6 10:39:48 Adult health examinat ion Completed 201302/28/2014 RECORDED 09/23/19 14 8:53AM BY YAYO ROB ON/MINERVA Stinson MD [address] [address], [place], [address] , [facility] 6 10:39:48 Chronic sinusiti s 44206985 Completed 201202/28/2014 RECORDED 08/18/19 13 8:46AM BY YAYO ROB/MINERVA Stinson MD [address] [facility] [address], [place], [address] , [facility] 6 10:39:48 Low back pain 789538646 Active He uses narcotic s occasion ally but has been able to tolerate the pain w/o using them on a regular basis. Followed by [facility] in 2020. Not Available [facility] 3 12:29:01 Acute sinusiti s 85119903 Completed 11/26/2018 GRACE Silva, [facility] 9 13:06:52 Onychomy cosis 296044334 Active Not Available [facility] 3 12:29:01 Mass of shoulder region 588547710 Active Not Available [facility] 3 12:29:01 Benign prostati c hyperpla juan 960957829 Completed 201706/17/2023 Removal Reason: now with lower tract symptoms . Austin Stinson MD [address] [facility] [address], [place], [address] , [facility] 3 19:42:05 Eczema 59952865 Active 2018 Not Available [facility] 3 12:29:01 Arthriti s of left sacroili ac joint 37302369896 25240 Active 2018 Followed by [facility]; injected April 2020 with some improvem ent. Not Available [facility] 3 12:29:01 Basal cell carcinom a of skin 754348979 Active 2019 Not Available [facility] 3 12:29:01 Pain of left wrist 56698253709 9102 Active [address] Barrios, hand surgery. Not Available [facility] 3 12:29:01 Arthriti s of right sacroili ac joint 36938271451 16833 Active 2020 Injected at [facility]. Not Available [facility] 3 12:29:01 Injury of great toe 982325546 Active 2020 possible dislocat ion; seen at [facility] and he may have surgery. Not Available [facility] 3 12:29:01 Osteoart hritis of knee 038385074 Active 2021 right knee; end-stag e. Seen at [facility]. Injected Not Available [facility] 3 12:29:01 Pain of left knee region 37012520260 4109 Active 2022 Unable to bear weight and swelling . US shows fluid but no cyst. Seen at [facility] and MRI ordered. Receivin g a nerve block and may need TKR Austin Stinson MD [address], [place], [address] , [facility] 3 14:20:55 Benign prostati c hyperpla juan with outflow obstruct ion 820384593 Active 2022 Followed by urology Not Available [facility] 3 12:29:01 Morbid obesity 827325534 Active 2022 Jody abrams, [facility] 3 10:04:17 Body mass index 30+ - obesity 337096757 Active 2023 Austin Stinson MD [address], [place], [address] , [facility] 4 09:26:33 Problem Notes None recorded. Procedures Surgical History Date Name Laterality Status Provider Name and Address Organization Details Recorded Time 06/23/20 24 Advanced Care Planning completed Austin Stinson MD [address], [place], [address], [facility] 06/23/2024 11:01:04 09/01/19 24 total knee replacement completed Dania Cee [facility] 09/02/2023 10:02:37 07/07/20 23 local anesthetic nerve block in lower limb completed Dania Cee [facility] 07/07/2023 09:50:15 10/17/19 23 injection into lumbar epidural space completed Dania Cee [facility] 10/21/2022 09:42:15 09/04/19 23 injection completed Dania Cee [facility] 09/06/2022 13:44:00 08/07/19 23 injection of sacroiliac joint completed Dania Cee [facility] 08/07/2022 10:14:23 08/23/19 22 injection completed Sarah Lofton [facility] 08/30/2021 15:16:51 04/20/20 21 arthrodesis of interphalangeal joint of toe completed Jake hawk MA [facility] 06/23/2024 10:12:44 04/11/20 21 injection of sacroiliac joint completed Sarah Lofton [facility] 04/17/2021 11:13:45 03/20/20 20 radiofrequency ablation of medial branch of lumbar nerve using fluoroscopic guidance completed Elizabeth Willis [facility] 03/22/2020 11:38:49 02/09/20 20 injection completed Elizabeth Willis [facility] 02/09/2020 10:28:48 10/06/19 20 injection into facet joint of lumbar spine using fluoroscopic guidance completed Elizabeth Willis [facility] 10/08/2019 09:26:08 08/16/19 20 injection of facet joint completed Elizabeth Willis [facility] 08/16/2019 13:12:12 04/26/20 19 injection completed Elizabeth Willis [facility] 04/27/2019 15:31:39 02/05/20 18 Colonoscopy completed Sarah Lofton [facility] 02/04/2018 11:32:34 03/31/20 12 arthroplasty of left shoulder completed Jake hawk MA [facility] 06/23/2024 10:13:30 incision and drainage of pilonidal cyst completed Jake hawk MA [facility] 11/26/2018 13:07:58 Imaging Results Imaging Date Name Status LastModified by Organization Details LastModified Time 01/20/2024 electrocardiogram completed [email or web address] In-Off ice Order Internal Use Only DO Not Attach Compendium DO Not Attach Compendium, Do Not Delete/merge, [id number] 01/20/2024 10:23:31 01/20/2024 electrocardiogram completed [email or web address] In-Off ice Order Internal Use Only DO Not Attach Compendium DO Not Attach Compendium, Do Not Delete/merge, [id number] 01/20/2024 09:09:06 04/19/2024 electrocardiogram completed [email or web address] In- Office Order Internal Use Only DO Not Attach Compendium DO Not Attach Compendium, Do Not Delete/merge, [id number] 04/19/2024 14:18:43 04/19/2024 electrocardiogram completed BARCODE In-Offi ce Order Internal Use Only DO Not Attach Compendium DO Not Attach Compendium, Do Not Delete/merge, [id number] 04/21/2024 18:35:58 04/19/2024 electrocardiogram completed BARCODE In-Offi ce Order Internal Use Only DO Not Attach Compendium DO Not Attach Compendium, Do Not Delete/merge, [id number] 04/21/2024 18:35:59 Procedure Notes None recorded. Medical Equipment None [...] TIMES DAILY 2014 active due to new guidelin es refills on this script are not covered [...] 08/19 completed RECORDED 08/19/19 14 4:13PM BY AUSTIN BROOKS MD, ANNOTATI ON/MINERVA ROSENTHAL; Not Available Not Available Not Available [email or web address] [...] 07/19 completed RECORDED 07/25/19 09 2:28PM BY MUSA REDDY MD, MEDICATI ON AUTO-ARAVIND CTIVATIO N; [...] 07/21 completed RECORDED 07/25/19 09 2:28PM BY MUSA REDDY MD, MEDICATI ON AUTO-ARAVIND CTIVATIO N; [...] Details Last Updated DateTime 4 179.07 cm 37.8 kg/m2 869915. 16 g 64 /min 97 % 97 % 98.5 [degF] 138 mm[Hg] 81 mm[Hg] Bri Gao LPN [facility] 4 11:36:00 Date Recorded Body height Body mass index (BMI) Body weight Heart rate Oxygen saturation Oxygen saturation in Arterial blood by Pulse oximetry Body temperature Systolic blood pressure Diastolic blood pressure Provider Name and Address Organization Details Last Updated DateTime 4 179.07 cm 36.5 kg/m2 868496. 83 g 73 /min 96 % 96 % 98 [degF] 126 mm[Hg] 75 mm[Hg] Marion Marin MA [facility] 4 09:02:00 Date Recorded Body height Body mass index (BMI) Body weight Oxygen saturation Oxygen saturation in Arterial blood by Pulse oximetry Heart rate Body temperature Systolic blood pressure Diastolic blood pressure Provider Name and Address Organization Details Last Updated DateTime 4 179.07 cm 34.9 kg/m2 327880. 32 g 98 % 98 % 80 /min 98.1 [degF] 114 mm[Hg] 69 mm[Hg] Kristina Peng MA [facility] 4 08:48:06 Date Recorded Body height Body mass index (BMI) Body weight Heart rate Oxygen saturation Oxygen saturation in Arterial blood by Pulse oximetry Body temperature Systolic blood pressure Diastolic blood pressure Provider Name and Address Organization Details Last Updated DateTime 4 179.07 cm 34.7 kg/m2 089346. 13 g 83 /min 95 % 95 % 97.8 [degF] 147 mm[Hg] 75 mm[Hg] Sis Walsh MA [facility] 4 14:47:05 Date Recorded Body height Body mass index (BMI) Body weight Heart rate Oxygen saturation Oxygen saturation in Arterial blood by Pulse oximetry Body temperature Systolic blood pressure Diastolic blood pressure Provider Name and Address Organization Details Last Updated DateTime 4 179.07 cm 33.8 kg/m2 766109. 58 g 77 /min 97 % 97 % 98.4 [degF] 120 mm[Hg] 67 mm[Hg] Jake dunn MA [facility] 10:17:54 Social History Question Answer Notes LastModified by Organizat ion Details LastModified Time Tobacco Smoking Status [facility]/13/[facility]22 12:57:48 Do You Have An Advance Directive? Yes Adela Pollack Information not available 03/13/2022 What Is Your Level Of Alcohol Consumption? None Drinking Was A Problem And He Stopped When He Was 36 Years Old. [id number] Information not available 05/23/2020 Is Blood Transfusion Acceptable In An Emergency? Yes [id number] Information not available 05/23/2020 What Is Your Level Of Caffeine Consumption? Moderate 3 Cups A Day Information not available 06/23/2024 How Much Tobacco Do You Chew? None [id number] Information not available 05/23/2020 Are You Currently Employed? Yes [id number] Information not available 05/23/2020 What Type Of Diet Are You Following? REGULAR [id number] Information not available 05/23/2020 Which Illicit Or Recreational Drugs Have You Used? None [id number] Information not available 05/23/2020 Do You Or Have You Ever Used E-cigarettes Or Vape? Never Used Electronic Cigarettes Information not available 03/13/2022 What Is Your Occupation? [employer] [id number] Information not available 05/23/2020 When Did You [...] Have You Served In The ? No [email or web address] Information not available 11/13/2016 Have You Or Anyone In Your Household Had Any Of The Following Symptoms In The Last 14 Days: Sore Throat, Cough, Chills, Body Aches For Unknown Reasons, Shortness Of Breath For Unknown Reasons, Loss Of Smell, Loss Of Taste, Fever At Or Greater Than 100 Degrees Fahrenheit? No Information not available 02/10/2020 Are You Or Anyone In Your Household A Health Care Provider Or Emergency Responder? No Information not available 02/10/2020 To The Best Of Your Knowledge Have You Been In Close Proximity To Any Individual Who Tested Positive For COVID-19? No Information not available 02/10/2020 Have You Recently Traveled To A COVID-19 High Risk Area Or Gathering In The Last 10 Days? No [email or web address] Information not available 08/08/2020 What Was The Date Of Your Most Recent Tobacco Screening? 06/23/2024 Information not available 06/23/2024 How Many Children Do You Have? 3 Catia Patten Zachary Information not available 06/23/2024 Do You Use Protection During Sex? No [id number] Information not available 05/23/2020 Do You Use [...] Start Smoking Tobacco? 14 Quit At 37 [id number] Information not available 05/23/2020 Are You Passively Exposed To Smoke? No Information not available 05/15/2015 Do You Or Have You Ever Used Smokeless Tobacco? Never Used Smokeless Tobacco [id number] Information not available 05/23/2020 How Much Tobacco Do You Smoke? No Information not available 03/13/2022 Do You Use Any Illicit Or Recreational Drugs? No Information not available 06/23/2024 Do You Use Sunscreen Routinely? No [id number] Information not available 05/23/2020 How Many Years Have You Smoked Tobacco? 21 [id number] Information not available 05/23/2020 Do You Or Have You Ever Used Any Other Forms Of Tobacco Or Nicotine? No Information not available 03/13/2022 Sex: Unknown Functional Status Question Answer Note LastModified by Organizat ion Details LastModified Time Are you able to walk? YESWOREST Information not available 03/13/2022 Are you able to care for yourself? Yes [id number] Information not available 05/23/2020 What is your [...] 12:56:26 Brother Malignant tumor of lung 47 [email or web address] Not available 05/22 10:44:43 Medical History Condition Response Cancer Y Arthritis Y Hypertension Y Polyps Y Immunizations Vaccine Type Date Status Provider Name and Address Organization Details Recorded Time Tdap 11/10/2014 completed Not Available [facility] 02:21:44 Influenza, split virus, trivalent, preservative 03/31/2019 completed Dania abrams [facility] 06/23/2023 09:09:40 zoster recombinant 03/31/2019 completed Dania abrams [facility] 06/23/2023 09:09:40 Influenza, split virus, quadrivalent, preservative 03/17/2020 ro[facility]rams [facility] 06/23/2023 09:09:40 Influenza, split virus, quadrivalent, preservative 04/23/2017 GRACE Underwood [facility] 06/23/2024 10:08:19 Influenza, split virus, quadrivalent, preservative 04/27/2015 completed Dania L Cee null, [facility] 06/23/2023 09:09:40 Influenza, split virus, quadrivalent, preservative 04/17/2016 completed Dania L Cee null, [facility] 06/23/2023 09:09:40 Influenza, split virus, quadrivalent, PF 04/20/2014 completed Dania L Cee null, [facility] 06/23/2023 09:09:40 COVID-19, mRNA, LNP-S, PF, 30 mcg/0.3 mL dose 05/21/2021 completed Dania L Cee null, [facility] 06/23/2023 09:09:40 Influenza, split virus, quadrivalent, preservative 04/22/2018 completed Dania Floyd WoodsonCee null, [facility] 06/23/2023 09:09:40 COVID-19, mRNA, LNP-S, PF, 30 mcg/0.3 mL dose 09/30/2020 completed Dania L Cee null, [facility] 06/23/2023 09:09:40 COVID-19, mRNA, LNP-S, PF, 30 mcg/0.3 mL dose 09/07/2020 completed Dania L Cee null, [facility] 06/23/2023 09:09:40 Influenza, split virus, trivalent, preservative 03/21/2021 completed Dania L Cee null, [facility] 06/23/2023 09:09:40 COVID-19, mRNA, LNP-S, PF, 30 mcg/0.3 mL dose, nae-sucrose 10/18/2021 completed Dania L Cee null, [facility] 06/23/2023 09:09:40 Influenza, MDCK, quadrivalent, PF 03/27/2022 completed Dania L Cee null, [facility] 06/23/2023 09:09:40 COVID-19, mRNA, LNP-S, bivalent, PF, 30 mcg/0.3 mL dose 03/27/2022 completed Dania abrams, [facility] 06/23/2023 09:09:40 Influenza, high-dose, quadrivalent, PF 04/11/2023 completed Dania Cee null, [facility] 06/23/2023 09:09:40 COVID-19, mRNA, LNP-S, PF, nae-sucrose, 30 mcg/0.3 mL 04/11/2023 completed Bri Gao LPN null, [facility] 2023 11:21:26 Pneumococcal conjugate PCV20, polysaccharide [id number] conjugate, adjuvant, PF 06/20/2023 completed GRACE Young, [facility] 04/19/2024 08:42:05 Influenza, split virus, quadrivalent, preservative 04/23/2017 completed Jake Cespedes MA null, [facility] 06/23/2024 10:08:19 COVID-19, mRNA, LNP-S, PF, nae-sucrose, 30 mcg/0.3 mL 03/30/2024 completed GRACE Young, [facility] 04/19/2024 08:48:26 Influenza, high-dose, trivalent, PF 03/30/2024 completed Sarah Lofton null, [facility] 04/01/2024 15:24:59 Influenza, split virus, trivalent, preservative 05/12/2009 completed Dania Cee null, [facility] 06/23/2023 09:09:40 Influenza, split virus, trivalent, preservative 05/21/2011 completed Dania abrams [facility] 06/23/2023 09:09:40 Past Encounters Encounter ID Performer Location Encounter Start Date Encounter Closed Date Diagnosis/Indication Diagnosis SNOMED-CT Code Diagnosis ICD10 Code [id number] autoEComm erc [address] [place] [address] 06/04/2007 00:00:00 [id number] autoEComm erce [address] [facility] [place] [address] 07/11/2008 00:00:00 [id number] autoEComm erce [address] [facility] [address] [place] [address] 07/27/2008 00:00:00 [id number] auto[employer]Comm erce [address] [place] [address] 10/24/2008 00:00:00 [id number] autoEComm erce [address] [facility] [place] [address] 05/12/2009 00:00:00 [id number] autoEComm erce [address] [facility] [place] [address] 08/08/2009 00:00:00 [id number] autoEComm erce [address] [facility] [place] [address] 08/13/2010 00:00:00 [id number] autoEComm erce [address] [facility] [place] [address] 07/18/2011 00:00:00 [id number] autoEComm erce [address] [facility] [place] [address] 08/15/2011 00:00:00 [id number] autoEComm erce [address] [facility] [place] [address] 08/18/2012 00:00:00 [id number] autoEComm erce [address] [facility] [place] [address] 08/25/2012 00:00:00 [id number] autoEComm erce [address] [facility] [place] [address] 07/10/2013 00:00:00 [id number] autoEComm erce [address] [facility] [place] [address] 08/19/2013 00:00:00 [id number] autoEComm erce [address] [facility] [place] [address] 09/22/2013 00:00:00 [id number] autoEComm erce [address] [facility] [place] [address] 12/20/2013 00:00:00 [id number] Radha Brunson Main Office [address] [facility] [address] [place] [address] 03/17/2014 10:42:32 03/17/2014 11:33:35 Low back pain 648465921 [id number] Jayla Jolleycecelia [place] Main Office [address] [facility] [address] [place] [address] 08/09/2014 10:28:38 08/09/2014 11:04:19 Dysfunction of eustachian tube 67095550 [id number] Austin Stinson MD Main Office [address] [address] [place] [address] 08/12/2014 14:13:50 08/12/2014 17:18:29 Acute sinusitis 49311053 [id number] Main Office [address] [facility] [address] [place] [address] 11/10/2014 13:29:49 11/10/2014 14:14:40 Adult health examination 795476923 Administra tion of diphtheria, pertussis, and tetanus vaccine 749483374 Essential hypertension 22382075 Onychomycosis 762552121 [id number] Austin Stinson MD Main Office [address] [address] [place] [address] 05/15/2015 10:41:25 05/15/2015 11:30:37 Essential hypertension 53321034 I10 Nocturia 355330396 R35.1 Low back pain 133841712 M54.5 [id number] Austin Stinson MD Main Office [address] [address] [place] [address] 08/22/2015 11:23:59 08/22/2015 12:07:31 Asthmatic bronchitis 449845853 J45.909 [id number] Austin Stinson MD Main Office [address] [address] [place] [address] 11/13/2015 10:03:41 11/13/2015 11:02:30 Essential hypertension 61439929 I10 Adult heal th examination 296969067 Z00.00 Mass of [facility] 468168567 R22.30 [id number] Austin Stinson MD Main Office [address] [address] [place] [address] 10/08/2016 13:24:01 10/08/2016 14:34:56 Cough 79530293 R05 Pneumonia 165652656 J18. 9 [id number] Austin Stinson MD Main Office [address] [place] [address] 11/13/2016 10:13:43 11/13/2016 11:06:40 Adult health examination 304972070 Z00.00 Nocturia 546236485 R35.1 Body mass index 30+ - obesity 543738273 E66.9 Z68.35 [id number] Austin Stinson MD Main Office [address] [address] 11/17/2017 12:52:19 11/17/2017 14:05:05 Adult health examination 647177322 Z00.00 Essential hypertension 51863758 I10 Screening for malignant neoplasm of colon 809115253 Z12.11 Screening for malignant neoplasm of lung 951216184 Z12.2 Body mass index 30+ - obesity 717447316 E66.01 Z68.37 Abdominal aortic aneurysm 146370491 I71.4 Benign pro static hyperplasia 959983135 N40.0 [id number] Austin Stinson MD Main Office [address] [address] 08/18/2018 13:19:28 08/18/2018 14:23:45 Fever 621345402 R50.9 Acute sinusitis 69501979 J01.90 Cough 36096883 R05 [id number] Austin Stinson MD Main Office [address] [address] 11/26/2018 12:53:44 11/26/2018 14:12:42 Adult health examination 618109901 Z00.00 Essential hypertension 29013295 I10 Low back pain 109383851 M54.5 Impotence of organic origin 190812023 N52.9 Eczema 10934169 L30.9 Varicella vaccination 68 612135 Z23 [id number] Austin Stinson MD Main Office [address] [address] [place] [address] 05/27/2019 10:18:46 05/27/2019 11:07:59 Essential hypertension 19899672 I10 Benign pro static hyperplasia 591547859 N40.0 Body mass index 30+ - obesity 686530268 E66.01 Z68.38 [id number] Austin Stinson MD [address] [address] [place] [address] 11/30/2019 08:40:30 11/30/2019 09:56:43 Impotence of organic origin 468500952 N52.9 Benign pro static hyperplasia 433053234 N40.0 Eczema 92617027 L30.9 [id number] Austin Stinson MD Main Office [facility] [address] [place] [address] 02/10/2020 14:52:35 02/10/2020 16:17:38 Adult health examination 399498542 Z00.00 Body mass index 30+ - obesity 207681263 E66.01 Benign pro static hyperplasia 614407069 N40.0 [id number] Austin Stinson MD Main Office [address] [address] [place] [address] 08/08/2020 15:26:58 08/09/2020 10:44:38 Essential hypertension 12570771 I10 Benign pro static hyperplasia 461628495 N40.0 [id number] Austin Stinson MD [address] [address] [place] [address] 09/11/2020 09:41:13 09/11/2020 14:28:29 Prostate specific antigen above reference range 832731555 R97.20 Microscopic hematuria 19 6726474 R31.29 [id number] Matthieu Singleton MD Main Office [facility] [address] [address] [place] [address] 09/22/2020 14:56:42 09/22/2020 15:51:35 Elevated blood-pressure reading without diagnosis of hypertension 079843824 R03.0 Pain of left wrist 62192 85430 29579 M25.532 [id number] Austin Stinson MD Main Office [address] [address] [place] [address] 10/05/2020 11:32:08 10/05/2020 12:09:10 Essential hypertension 17530021 I10 Swelling o f joint of left wrist 5735975681 6392841 M25.432 [id number] Austin Stinson MD Main Office [address] [address] [place] [address] 11/15/2020 13:26:08 11/15/2020 14:09:46 Essential hypertension 29006937 I10 [id number] Jessica Hopkins [address] [address] [place] [address] 02/01/2021 12:59:31 02/01/2021 21:41:06 Pain in right foot 5312517560 83049 M79.671 Fracture of great toe 20 5151661 S92.404A 300666 Jody Healy [address] [address] [place] [address] 02/02/2021 09:13:08 02/02/2021 10:50:27 Closed fracture of first metatarsal bone 48830878 S92.311A Fall W19.XXXA [id number] Austin Stinson MD Main Office [facility] [address] [address] [place] [address] 03/08/2021 10:22:17 03/08/2021 11:14:39 Adult health examination 494797672 Z00.00 Body mass index 40+ - severely obese 845008318 E66.01 Z68.41 Essential hypertension 87669322 I10 Benign pro static hyperplasia 868199980 N40.0 Injury of great toe 2827 22782 S99.922A [id number] Main Office [address] [address] [place] [address] 08/21/2021 14:56:09 08/21/2021 15:51:53 Edema of lower extremity 550605788 R60.0 Cellulitis 608519981 L03 .90 [id number] Austin Stinson MD Main Office [address] [address] [place] [address] 09/26/2021 15:41:34 09/26/2021 16:12:27 Essential hypertension 64668549 I10 Body mass index 40+ - severely obese 409617004 E66.01 Z68.41 Low back pain 135972966 M54.50 [id number] Austin Stinson MD Main Office [address] [address] [place] [address] 03/13/2022 12:55:46 03/13/2022 13:57:39 Adult health examination 092675975 Z00.00 Low back pain 540817927 M54.50 Benign pro static hyperplasia 826838837 N40.0 Essential hypertension 58080718 I10 Pain of ri ght knee region 6902162087 16320 M25.561 [id number] Austin Stinson MD Main Office [address] [place] [address] 09/17/2022 10:28:48 09/17/2022 11:01:02 Essential hypertension 68313672 I10 Thoracic back pain 37602 8004 M54.6 [id number] Pepper Rose [place] Main Office [address] [address] 02/04/2023 11:05:33 02/04/2023 11:43:18 Pain of left knee joint 7493750907 02342 M25.562 [id number] Jody Healy Main Office [address] [address] 06/18/2023 09:54:12 06/18/2023 11:00:32 Adult health examination 413804201 Z00.00 Essential hypertension 04156161 I10 Administra tion of pneumococcal vaccine 00054902 Z23 Screening for malignant neoplasm of colon 975774242 Z12.11 Body mass index 40+ - severely obese 003707619 Z68.41 Benign pro static hyperplasia with outflow obstruction 390701654 N40.1 Pain of bi lateral knee joints 9643879295 03776 M25.561 M25.562 Morbid obesity 768883529 E66.01 [id number] Austin Stinson MD Main Office [address] [address]

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
== END 2024-06-24 09:10 | disposition home or self-care (01) ==
PROVIDERS: Visit Provider Orthopaedic Surgery
DX: M25.561 Pain in right knee (principal); M17.11 Unilateral primary osteoarthritis, right knee
CPT/HCPCS: 99213; G2211

== ENCOUNTER 2024-06-24 08:42 | Outpatient (REF) | payer MEDICARE, SELFPAY | END 2024-06-24 08:43 | disposition home or self-care (01) | LOC: HO.LAB 08:42 | PROVIDERS: Visit Provider Orthopaedic Surgery | DX: M25.561 Pain in right knee (principal); M17.11 Unilateral primary osteoarthritis, right knee | CPT/HCPCS: 99212 ==

== ENCOUNTER 2024-06-28 07:47 | Inpatient (IN) | payer MEDICARE, SELFPAY ==
[2024-06-24 09:18] VITALS: BMI 35.4
--- NOTE | 2024-06-25 09:21 | HO.ANESPROP2 ---
Documented by User: Deborah Cavanaugh NP 06/25/24 09:24 HPI - Anesthesia Eval Consult details Narrative: 68yo M for Right Knee Replacement Total Previous cx'd for skin abrasion s/p left side 08/2023 with spinal/block PMFSH Active Problems Active Problems: All Active Problems (Updated 06/24/24 @ 09:22 by Dipti Osman PA-C) Pre-op evaluation (Acute) Left knee pain (Acute) Status post total left knee replacement (Acute ~09/01/23) Arthritis of right knee (Acute) Osteoarthritis of knees, bilateral (Acute) Chronic right SI joint pain (Acute) Past Medical History Medical History Pilonidal cyst Skin cancer Arthritis Back pain Umbilical hernia Renal cyst Obesity, Class II, BMI 35-39.9 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, non-recurrent HTN (hypertension) BPH (benign prostatic hyperplasia) Arthritis of left knee Family History Family History Other HTN (hypertension) Family history of problems with anesthesia: No Surgical History Surgical History History of surgical removal of pilonidal cyst Hx of shoulder surgery History of total left knee replacement H/O colonoscopy Hx of rotator cuff surgery Hx of toe surgery History of Problems with Anesthesia: No Social History Social History Household Members: Spouse Housing: House Are you a primary career education teacher to a significant other at home: No Do you presently have visiting nurse or other home services: No Patient Tobacco Use Status: Never used Tobacco Use of substances other than those prescribed or required for medical reasons: No Have you been hit, kicked, punched, or otherwise hurt by someone within the past year? If so, by whom?: No Are you DNR?: No Advance Directives: No Advance Directives Information Provided: No Advance Directives on File: No Recently lost weight without trying: No Eating poorly because of decreased appetite: No Nutrition Risks: No Nutritional Risk Poor oral hygiene: Yes (implants x 5) service: No Current occupational status: other Meds Allergies Allergy/AdvReac Type Severity Reaction Status Date / Time hazelnut Allergy Itching Verified 06/28/24 07:54 peach Allergy Itching Verified 06/28/24 07:54 Active Medications: Current Medications Cefazolin Sodium 3 gm/ Sodium (Chloride) 100 mls @ 200 mls/hr IV PREOP ONE Stop: 06/28/24 05:40 Vancomycin HCl (Vancomycin/Ns) 2,000 mg in 500 mls @ 250 mls/hr IV PREOP ONE Stop: 06/28/24 07:11 Home Medications ?Medication ?Instructions ?Recorded ?Confirmed ?Last Taken ?Type tamsulosin 0.4 mg capsule 0.4 mg PO DAILY 07/17/23 06/28/24 06/28/24 History tirzepatide 2.5 mg/0.5 mL 2.5 mg subcut QWEEK 02/11/24 06/28/24 06/18/24 History subcutaneous pen injector amlodipine 5 mg-benazepril 10 mg 1 cap PO DAILY blood pressure 05/07/24 06/28/24 06/27/24 History capsule sildenafil (pulm.hypertension) 20 20 mg PO DAILY 05/07/24 06/28/24 06/27/24 History mg tablet Exam Height,Weight and Vital Signs: Height 5 ft 10 in Weight 112 kg Pertinent Lab Results Pertinent Lab Results: Laboratory Tests 06/24/24 09:50 Blood Type O Positive Antibody Screen NEGATIVE CBC, BMP, A1C 04/2024 from outside facility WNL Narrative Narrative: EKG 04/2024 NSR @ 69 Assessment and Plan Assessment Anesthesia Assessment: Chart Reviewed Final Anesthetic Review Family History of Problems with Anesthesia: No History of Problems with Anesthesia: No Documented by User: Niyah Zuniga MD 06/28/24 09:20 PMFSH Past Medical History Medical History Pilonidal cyst Skin cancer Arthritis Back pain Umbilical hernia Renal cyst Obesity, Class II, BMI 35-39.9 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, non-recurrent HTN (hypertension) BPH (benign prostatic hyperplasia) Arthritis of left knee Family History Family History Other HTN (hypertension) Surgical History Surgical History History of surgical removal of pilonidal cyst Hx of shoulder surgery History of total left knee replacement H/O colonoscopy Hx of rotator cuff surgery Hx of toe surgery Social History Social History Household Members: Spouse Housing: House Are you a primary career education teacher to a significant other at home: No Do you presently have visiting nurse or other home services: No Patient Tobacco Use Status: Never used Tobacco Use of substances other than those prescribed or required for medical reasons: No Have you been hit, kicked, punched, or otherwise hurt by someone within the past year? If so, by whom?: No Are you DNR?: No Advance Directives: No Advance Directives Information Provided: No Advance Directives on File: No Recently lost weight without trying: No Eating poorly because of decreased appetite: No Nutrition Risks: No Nutritional Risk Poor oral hygiene: Yes (implants x 5) service: No Current occupational status: other Meds Allergies Allergy/AdvReac Type Severity Reaction Status Date / Time hazelnut Allergy Itching Verified 06/28/24 07:54 peach Allergy Itching Verified 06/28/24 07:54 Home Medications ?Medication ?Instructions ?Recorded ?Confirmed ?Last Taken ?Type tamsulosin 0.4 mg capsule 0.4 mg PO DAILY 07/17/23 06/28/24 06/28/24 History tirzepatide 2.5 mg/0.5 mL 2.5 mg subcut QWEEK 02/11/24 06/28/24 06/18/24 History subcutaneous pen injector amlodipine 5 mg-benazepril 10 mg 1 cap PO DAILY blood pressure 05/07/24 06/28/24 06/27/24 History capsule sildenafil (pulm.hypertension) 20 20 mg PO DAILY 05/07/24 06/28/24 06/27/24 History mg tablet Exam Airway Mallampati Class: II TM Dist: >3cm Neck ROM: Full Heart: rrr Lungs: cta Assessment and Plan Assessment Anesthesia Assessment: Anesthesia Plan Discussed Final Anesthetic Review NPO: Yes ASA Class: III (pulm htn) Patient Risk: Intermediate Procedure Risk: Intermediate Anesthetic Plan Anesthetic Plan: MAC:, Spinal and Regional Block Disposition: Standard PACU
[2024-06-28] VITALS (12 sets, daily range): BP systolic 107–155; BP diastolic 67–77; PULSE 75–94; RESP 12–18; TEMP 36.1–36.8; O2SAT 97–100; BMI 33.5; BMI 36.7
[2024-06-28] MEDS: Lactated Ringers 1,000 ML 100 ML IVCONT ×2 (08:02→14:56)
--- NOTE | 2024-06-28 08:42 | PC.NURSE ---
Dipti Osman reviewed with Dr. Wright and he stated patient to receive Vancomycin, Cefazolin 3 grams and Cefazolin 2 grams to be pulled and give preop and post op according to his orders. Pharmacy updated.
[2024-06-28] MEDS: vancomycin HCL 1,500 MG in 0.9 % Sodium Chloride 500 ML 333.33 MG IV ×2 (08:50→22:03)
--- NOTE | 2024-06-28 10:59 | PC.NURSE ---
Reviewed with Dr. Wright prior to going into OR and he stated that patient is only to receive Cefazolin 3 grams IV. Cefazolin 2 gm IV returned to [facility].
--- NOTE | 2024-06-28 14:04 | PM.OP ---
Brief Operative Note Date of Service: 06/28/24 Pre-op diagnosis: Right knee degenerative joint disease Post-op diagnosis: same Procedure: Right total knee arthroplasty Implants: [place] [employer] cemented posterior stabilized total knee arthroplasty with a femoral component size 6 right, universal tibial component size 7, polyethylene liner size 7 with 9 mm of thickness, an asymmetric patellar component size 35 with 10 mm of thickness Surgeon: Db Wright MD Anesthesia: regional and spinal Was an [employer]bell Choir Director used for this Procedure?: No [employer]bell Choir Director: Dipti Osman Estimated blood loss (mL): 200 Pathology: other (Bony fragments from the right femur, patella and tibia) Condition: stable Disposition: PACU
--- NOTE | 2024-06-28 14:05 | P.OP_ITS ---
Operative Note Operative Note Date of Service: 06/28/24 Narrative: After the patient was identified as Musa Pollack and his right knee was initialed by myself the patient was brought to the holding area where a right leg nerve block was performed by the anesthesiologist in routine fashion. The patient was then brought to the operating room where conscious sedation and spinal anesthesia were performed by the anesthesiologist in routine fashion. The patient was given both IV Ancef and IV vancomycin preoperatively for infection prophylaxis. The patient's right lower extremity was prepped and draped in sterile fashion. A formal time-out was completed. The patient's right knee was placed onto a small bump to produce 30? of knee flexion during exposure. A #10 scalpel blade was used to make a midline incision extending 1 handbreadth proximal and distal to the patella. A second #10 scalpel blade was used to dissect the subcutaneous tissues down to the extensor mechanism. The subcutaneous flaps were maintained as thick as possible. A medial parapatellar arthrotomy was then performed using a #10 scalpel blade. The arthrotomy was begun just medial to the patellar tendon. The arthrotomy was continued 1 cm medial to the patella and then 5 mm into the medial aspect of the quadriceps tendon. The infrapatellar fat pad was partially excised to help with exposure. The soft tissue retinaculum was raised one-half of the way around the medial aspect of the proximal tibia. The patella was everted and the knee was flexed to 90?. There was no injury to the patellar tendon or its insertion onto the tibial tubercle. A drill bit was introduced into the distal aspect of the femur with a starting point 1 cm anterior to the origin of the posterior cruciate ligament. The intramedullary alignment barbara was put into place. The distal alignment guide was set for a 5 degree valgus cut. The distal cutting block was put into place and was held with 4 pins. The intramedullary alignment barbara was removed. Soft tissues were retracted in the distal femoral cut was made using a sagittal saw. The distal aspect of the femur measured to be a size 6 right component. Two drill holes were placed into the distal aspect of the femur marking 3? of external rotation. The distal cutting block was impacted into place and was held with 2 pins. Soft tissues were retracted and the 4 distal femoral cuts were made using a sagittal saw. Final notching and drilling of the distal aspect of the femur were performed in routine fashion. The trial femoral component was impacted into place. The knee was taken through a full range of motion. The patella tracked well. The patella was everted and the knee was flexed to 90?. The trial component was removed and our attention was directed to the proximal tibia. The medial and lateral menisci were removed using a #10 scalpel blade. A small rim of the medial meniscus was left intact to help prevent injury to the medial collateral ligament. A drill bit was then introduced into the proximal tibia with a starting point midway from medial to lateral and one-third of the way posteriorly. The intramedullary alignment barbara was put into place. The proximal tibial cutting guide was placed over the alignment barbara in line with the 2nd toe. The guide was held in place using 3 pins. The intramedullary alignment barbara was removed. Soft tissues were retracted and the proximal tibial cut was made using a sagittal saw. Inspection of the proximal tibia showed a bony cyst measuring approximately 10 mm x 5 mm x 5 mm along the medial tibial plateau. Because of the presence of the cyst the decision was made to use a tibial stem to help prevent loosening of the tibial component in the future. The proximal tibia measured to be a size 7 component. The tibial tray was put into place with a 9 mm liner. The femoral component was impacted into place. The knee was taken through a full range of motion. There was full flexion and full extension. There was no instability with varus or valgus stress testing with the knee in flexion or extension. The patella tracked well with no medially directed force. The rotation of the tibial tray was marked using electrocautery with the knee in extension. The patella was everted and the knee was flexed to 90?. All trial components were removed. The tibial tray was placed onto the proximal tibia in line with the electrocautery marline. The tray was held in place using 3 pins. Final broaching and drilling of the proximal tibia were performed in routine fashion. The trial liner and trial femoral component were put into place. The knee was brought into extension and our attention was directed to the patella. The patella measured 25 mm in thickness. The patellar resection guide was set for a 10 mm resection. Soft tissues were retracted and the patella cut was made using a sagittal saw. The remaining patella measured 15 mm in thickness. The undersurface of the patella was measured to be a size 35 asymmetric component. Three drill holes were placed into the undersurface of the patella in routine fashion. The trial component was put into place. The knee was taken through a full range of motion. The patella tracked well. The patella was everted and the knee was flexed to 90?. All trial components were removed. The knee was once again brought into extension and placed onto a small bump. The knee joint was irrigated with copious amounts of normal saline solution via pulse lavage while the cement was mixed. The patella was everted and the knee was flexed to 90?. A small amount of cement was placed along the posterior aspects of the tibial and femoral components. Cement was then pressurized into the proximal tibia. The tibial component was impacted into place. Any excess cement was removed. The polyethylene liner was then impacted into place. Cement was then pressurized into the distal aspect of the femur. A small amount of cement was placed into the intramedullary canal to help reduce bleeding. The femoral component was impacted into place. Any excess cement was removed. The knee was then brought into extension. Cement was pressurized into the undersurface of the patella. The patellar component was put into place and was held with a pa tella clamp. Any excess cement was removed. Once the cement had hardened the patellar clamp was removed. The knee was taken through a full range of motion. There was full flexion and extension. There was no instability with varus or valgus stress testing with the knee in flexion or extension. The patella tracked well with no medially directed force. The knee joint was irrigated with copious amounts of normal saline solution via pulse lavage. Any significant bleeding vessels were coagulated. The patient's right knee was placed onto a small bump. The arthrotomy was closed with #2 Ethibond [id number] interrupted suture as well as #1 Vicryl [id number] interrupted suture. The wound was once again irrigated. The subcutaneous tissues were closed with 0 Vicryl and 2-0 Vicryl interrupted sutures. The skin was closed with skin darlene. Dry sterile dressing and Anjum bandages were placed over the patient's right knee. The patient was awake and alert. The patient was transferred to the recovery room in stable condition.
--- NOTE | 2024-06-28 14:39 | PHA.MEDREC ---
Pharmacy Consult ? Medication Reconciliation Pharmacy has completed the medication reconciliation. Spoke to patient at bedside, he knew his medication and most of the doses. States he takes them all except the Sildenafil 20mg. Took Tamsulosin this morning and the rest last night. His last Monjaro was last Friday as he was told to skip it before the surgery.
[2024-06-28] MEDS: HYDROmorphone HCl 0.5 MG/0.5 ML SYRINGE 0.25 MG IVPUSH (14:55)
[2024-06-28] MEDS: methocarbamoL 500 MG TABLET PO ×2 (15:03→21:25)
[2024-06-28] MEDS: Aspirin 325 MG TABLET PO ×2 (17:04→21:26)
[2024-06-28] MEDS: ceFAZolin Sodium/Dextrose,Iso 2 GM/50 ML PIGGYBACK IV (17:05)
[2024-06-28] MEDS: oxyCODONE HCl Immed Release 5 MG TABLET 10 MG PO (17:16)
[2024-06-28] MEDS: HYDROmorphone HCl 0.5 MG/0.5 ML SYRINGE IVPUSH (19:57)
[2024-06-28] MEDS: 0.9 % Sodium Chloride Flush 3 ML SYRINGE IVFLUSH (20:00)
[2024-06-28] MEDS: Docusate Sodium 100 MG CAPSULE PO (21:25)
[2024-06-28] MEDS: Gabapentin 100 MG CAPSULE PO (21:27)
[2024-06-28] MEDS: oxyCODONE HCl ER 10 MG TAB.ER.12H PO (21:27)
[2024-06-29] MEDS: HYDROmorphone HCl 0.5 MG/0.5 ML SYRINGE IVPUSH (00:04)
[2024-06-29] MEDS: ceFAZolin Sodium/Dextrose,Iso 2 GM/50 ML PIGGYBACK IV (00:06)
[2024-06-29] MEDS: Lactated Ringers 1,000 ML 100 ML IVCONT (03:03)
[2024-06-29 03:15] VITALS: BP 127/67; PULSE 88; RESP 16; TEMP 36.3; O2SAT 96
[2024-06-29] MEDS: oxyCODONE HCl Immed Release 5 MG TABLET 10 MG PO ×3 (03:30→12:04)
[2024-06-29 07:22] VITALS: BP 127/67; PULSE 88; O2SAT 96
[2024-06-29 07:33] VITALS: BP 121/60; PULSE 88; RESP 18; TEMP 36.5; O2SAT 97
[2024-06-29 07:46] LABS: MANUAL DIFF FLAG NO
[2024-06-29] MEDS: Aspirin 325 MG TABLET PO (07:46)
[2024-06-29] MEDS: lisinopriL 10 MG TABLET PO (07:47)
[2024-06-29] MEDS: Docusate Sodium 100 MG CAPSULE PO (07:47)
[2024-06-29] MEDS: amLODIPine Besylate 5 MG TABLET PO (07:47)
[2024-06-29] MEDS: methocarbamoL 500 MG TABLET PO (07:47)
[2024-06-29] MEDS: oxyCODONE HCl ER 10 MG TAB.ER.12H PO (07:47)
[2024-06-29] MEDS: Tamsulosin HCL 0.4 MG CAPSULE PO (07:47)
[2024-06-29] MEDS: Sildenafil Citrate 20 MG TABLET PO (07:48)
[2024-06-29 08:00] LABS: Basophils Percent Auto 0.2 % (0-2); Eosinophils Percent Auto 0.1 % (0-4); Hematocrit 34.4 % (42.0-52.0); Hemoglobin 11.9 g/dl (14.0-18.0); Imm Gran Abs Auto 0.14 X10*3/uL (0.00-0.03); Imm Gran Pct Auto 0.7 % (0.0-0.4); Lymphocytes Absolute Auto 1.5 X10*3/uL (1.2-4.9); Lymphocytes Percent Auto 7.7 % (20-40); Mean Corpuscular HGB Conc 34.6 g/dl (31.0-36.0); Mean Corpuscular Hemoglobin 30.9 pg (27.0-33.0); Mean Corpuscular Volume 89.4 fL (80.0-98.0); Mean Platelet Volume 10.6 fL (9.4-12.4); Monocytes Absolute Auto 1.1 X10*3/uL (0.1-1.2); Monocytes Percent Auto 5.9 % (2-11); Neutrophils Absolute Auto 16.3 x10*3/uL (2.0-8.3); Neutrophils Percent Auto 85.4 % (45-73); Platelet Count 211 X10*3/uL (160-400); Red Blood Count 3.85 X10*6/uL (4.60-5.80); Red Cell Distribution Width 14.6 % (11.0-16.0); White Blood Count 19.1 X10*3/uL (4.8-10.8)
[2024-06-29 08:27] LABS: Anion Gap 12 (12-20); Blood Urea Nitrogen 14 mg/dL (9-16); Calcium 8.5 mg/dL (8.4-10.2); Carbon Dioxide 23 mmol/L (22-29); Chloride 106 mmol/L (96-108); Creatinine Clr Calc Pharmacy 115.8; Estimated Glomerular Filt Rate > 60; Glucose Fasting 109 mg/dL (60-99); Sodium 137 mmol/L (135-145)
--- NOTE | 2024-06-29 10:02 | HO.POSTANES ---
Post Anesthesia Evaluation Post Anesthesia Evaluation Date of Service: 06/29/24 Vital Signs: Vital Signs Temp Pulse Resp BP Pulse Ox O2 Del Method 06/29/24 07:33 97.7 F 88 18 121/60 97 Room Air 06/29/24 07:22 88 127/67 96 06/29/24 03:15 97.3 F 88 16 127/67 96 Room Air Anesthesia: Regional and Spinal Mental Status: Awake Pain Control: Satisfactory Nausea/Vomiting: None Hydration: Adequate Anesthesia-Related Issues: No Anes. Related Issues
[2024-06-29 11:44] VITALS: BP 121/60; PULSE 88; O2SAT 97
--- NOTE | 2024-06-29 12:06 | MHC.CM.PN ---
IMM delivered. Patient lives in a home w/ , Adela. Functionally independent. Does not use AD's for ambulation at baseline, but has a walker in the home. PCP Waldmear Stinson MD HCP on file and verified. [facility]CA is . DP: Home w/ [facility] for PT services. to transport. Will dc this afternoon.
--- NOTE | 2024-06-29 12:31 | P.DS_ITS ---
DS: Providers Provider Date of Service: 06/29/24 Date of admission: 06/28/24 07:47 Primary care physician: Waldemar Stinson MD DS: Summary Hospital Course Hospital Course: The patient underwent a successful right total knee arthroplasty on 06/28/[address] chow, was transferred to PACU and then to the floor to recover. During their stay, their vitals were stable, afebrile at 97.7. Labs were unremarkable, H/H 11.9/34.4. POD 1 he was started on ASA 325mg for DVT ppx, they also received Physical Therapy services twice a day. Physical therapy should include gait training, ROM to tolerance and quad strength. He is WBAT. Prior to discharge, his dressing was clean dry and intact, The Aquacel dressing should remain intact and dry at all times. Any concerns with the dressing, please contact orthopedic office. No showering. The plan is to be discharged home with vna Time Attestation Discharge Coordination Time (in mins): 30 Quality: Safe Use of Opioids Does Pt have an Active Cancer Diagnosis on the Problem List?: No Quality: Stroke Does the patient have a stroke diagnosis?: No Physical Exam Vital Signs: Vital Signs: Last Vital Signs Temp 97.7 F 06/29/24 07:33 Pulse 88 06/29/24 11:44 Resp 18 06/29/24 07:33 BP 121/60 06/29/24 11:44 Pulse Ox 97 06/29/24 11:44 O2 Del Method Room Air 06/29/24 07:33 O2 Flow Rate 4 06/28/24 12:58 BMI result Body Mass Index 36.7 DS: Data Data Completed and Pending Completed studies during hospitalization [Text1]: Procedures Introduction of Anesthetic Agent into Peripheral Nerves and Plexi, Percutaneous Approach (09/01/23) Replacement of Left Knee Joint with Synthetic Substitute, Cemented, Open Approach (09/01/23) Pending studies at discharge: Pending at discharge 06/28/24 11:43 Surgical [PTH] Routine Labs on day of discharge: Laboratory Results - last 24 hr 06/29/24 06:10 WBC 19.1 H RBC 3.85 L Hgb 11.9 L Hct 34.4 L MCV 89.4 MCH 30.9 MCHC 34.6 RDW 14.6 Plt Count 211 MPV 10.6 Immature Gran % (Auto) 0.7 H Neut % (Auto) 85.4 H Lymph % (Auto) 7.7 L Lanier % (Auto) 5.9 Eos % (Auto) 0.1 Baso % (Auto) 0.2 Lymph # (Auto) 1.5 Lanier # (Auto) 1.1 Eos # (Auto) 0.0 Baso # (Auto) 0.0 Abs Immat Gran (auto) 0.14 H Absolute Neuts (auto) 16.3 H Absolute Nucleated RBC 0.000 Nucleated RBC % (auto) 0.0 Sodium 137 Potassium 4.0 Chloride 106 Carbon Dioxide 23 Anion Gap 12 BUN 14 Creatinine 0.80 Estim Creat Clear Calc 115.8 Estimated GFR > 60 Fasting Glucose 109 H Calcium 8.5 Discharge Plan Discharge Anticipated Discharge Date/Time: 06/29/24 12:27 Patient Disposition: Home Health Service Discharge Diagnosis: RT TKA Referrals: [facility] [Outside] - 3-5 Days ([facility] will call you to schedule home PT appointments) Dipti Osman PA-C [Physician Rn [facility]] - 2 Weeks (07/15/24 13:00 [facility] Dipti Osman PA-C) Discharge Medications: New celecoxib 200 mg Capsule 200 mg PO DAILY PRN (Reason: Pain, Mild (Pain Scale 1-3)) 30 Days Qty: 60 0RF methocarbamol 500 mg Tablet 500 mg PO TID 7 Days Qty: 21 0RF acetaminophen 325 mg Tablet 650 mg PO Q6H PRN (Reason: Pain, Mild (Pain Scale 1-3), fever or headache) 30 Days Qty: 240 0RF aspirin 325 mg Tablet 325 mg PO BID 42 Days Qty: 84 0RF docusate sodium 100 mg Capsule 100 mg PO BID 14 Days Qty: 28 0RF gabapentin 100 mg Capsule 100 mg PO BEDTIME 7 Days Qty: 7 0RF oxycodone 5 mg Tablet 5 mg PO Q4H PRN (Reason: Pain, Mild (Pain Scale 1-3)) 7 Days Qty: 42 0RF Rx Instructions: Partial Fill upon patient request. Continued (D[place] [facility] [place] See Rx Instructions .ROUTE .MEDSUPPLY Qty: 1 0RF Rx Instructions: Folding front wheeled walker (DME) walker Misc See Rx Instructions .ROUTE .MEDSUPPLY Qty: 1 0RF Rx Instructions: Folding front wheeled walker amlodipine-benazepril 5-10 mg capsule 1 cap PO DAILY tamsulosin 0.4 mg capsule 0.4 mg PO DAILY tirzepatide 2.5 mg/0.5 mL pen injector 2.5 mg subcut QWEEK Patient Comments: Patient takes every Friday Discontinued acetaminophen 325 mg tablet 650 mg PO Q6H PRN (Reason: Pain, Mild (Pain Scale 1-3)) 30 Days Qty: 240 0RF celecoxib [Celebrex] 200 mg capsule 200 mg PO DAILY PRN (Reason: pain) Qty: 30 3RF Discharge Orders: Discharge Order (Routine); Ordered 06/29/24 Ordered By: Joanna King Diet: Regular diet Activity on Discharge: Use cane or walker Stand Alone Forms: Patient Portal Discharge page Print Language: Beninese Care Plan Goals: Restore function of joint Health Concerns: none Plan of Treatment: Physical Therapy Pain management DVT prophylaxis Assessment: Physical Therapy for Total knee arthroplasty: WBAT, gait training, ROM 0-12, quad strength * Limit stair climbing * No showering, no tub bath-keep dressing clean, dry and intact * No driving x6 weeks * Continue Aspirin twice a day x 6 weeks * Follow up with [facility] in 2 weeks: * Discharge Date/Time: 06/29/24 14:25
--- NOTE | 2024-06-29 12:31 | P.F2F_ITS ---
Service Date Service Date: 06/29/24 Encounter Date of encounter: 06/29/24 Reasons for Services Signs and symptoms assessed: Weakness, poor balance, poor gait mechanics Reason for physical therapy: home safety and mobility, therapeutic exercises, restore joint function, gait/transfer training, ADL training and energy conservation Reason for occupational therapy: home safety and mobility, therapeutic exercises, restore joint function, gait/transfer training, ADL training and energy conservation Homebound: Leaving the home is medically contraindicated at this time without the asist of a device and/or another person due th the listed conditions above and below. Reason homebound: unsteady gait / fall risk, pain with ambulation, poor balance / fall risk and unable to drive Homebound supporting statement: Pt. is considered home bound due to recent surgery. Unable to drive, poor balance, poor gait mechanics. Certification: Based on the above findings, I certify that this patient is confined to the home and needs intermittent long-term care, physical therapy and/or speech therapy, or continues to need occupational therapy. The patient is under my care, and I have initiated the establishment of the plan of care. The patient will be followed by a physician who will periodically review the plan of care. Time Spent With Patient Time: Total time managing care of this patient today ____ minutes.
== END 2024-06-29 14:25 | disposition home health service (06) | DRG 470 ==
LOC: HO.SSSA 07:48 → HO.S3 13:25
PROVIDERS: Physician Assistant; Admitting Provider Orthopaedic Surgery; PCP Internal Medicine; Visit Provider Orthopaedic Surgery
PROC: 0SRC0J9 Replacement of Right Knee Joint with Synthetic Substitute, Cemented, Open Approach (ICD-10-PCS; CPT 27447; principal; 2024-06-28 09:30)
DX: M17.11 Unilateral primary osteoarthritis, right knee (principal); G89.18 Other acute postprocedural pain; Z79.899 Other long term (current) drug therapy
CPT/HCPCS: 36415; 80048; 85025; 86850; 86900; 86901; 88305; 88311; 97110; 97116; 97162; C1776; J0131; J0665; J0690; J1100; J1171; J2003; J2250; J2371; J2405; J2704; J3010; J3370; J3371; J7120

== ENCOUNTER → 2024-06-28 07:47 | Outpatient (BNV) | payer MEDICARE, SELFPAY | PROVIDERS: Admitting Provider Orthopaedic Surgery; PCP Internal Medicine; Visit Provider Orthopaedic Surgery | DX: M17.11 Unilateral primary osteoarthritis, right knee (principal) | CPT/HCPCS: 27447; G0180 ==

== ENCOUNTER 2024-07-15 09:00 | Outpatient (REF) | payer MEDICARE, SELFPAY ==
--- NOTE | ~2024-07-15 | XR_ITS ---
EXAMINATION: XR LEFT KNEE; XR RIGHT KNEE CLINICAL INFORMATION: Pain in unspecified knee M25.569. COMPARISON: XR Left knee 02/24/2024; XR Bilateral knees anteroposterior 07/17/2023 TECHNIQUE: 1 view of left knee and 2 views of right knee. findings: Bilateral AP standing radiographs and a right lateral radiograph of the knees are obtained. A total right knee arthroplasty is present. Cutaneous darlene traverse the anterior portion of the right knee. The right knee arthroplasty demonstrates no subluxations or periprosthetic lucency zones. No erosive osseous lesions noted. The AP view of the left knee demonstrates a total left knee arthroplasty without evidence of subluxation or definitive abnormal lucent zones. No periprosthetic fractures. XR/XR knee RT 3V IMPRESSION: Status post bilateral total knee arthroplasties. Electronically signed by: Edson Todd MD 08/19/2024 03:21 PM [facility]
--- NOTE | ~2024-07-15 | XR_ITS ---
EXAMINATION: XR LEFT KNEE; XR RIGHT KNEE CLINICAL INFORMATION: Pain in unspecified knee M25.569. COMPARISON: XR Left knee 02/24/2024; XR Bilateral knees anteroposterior 07/17/2023 TECHNIQUE: 1 view of left knee and 2 views of right knee. findings: Bilateral AP standing radiographs and a right lateral radiograph of the knees are obtained. A total right knee arthroplasty is present. Cutaneous darlene traverse the anterior portion of the right knee. The right knee arthroplasty demonstrates no subluxations or periprosthetic lucency zones. No erosive osseous lesions noted. The AP view of the left knee demonstrates a total left knee arthroplasty without evidence of subluxation or definitive abnormal lucent zones. No periprosthetic fractures. XR/XR knee LT 1V IMPRESSION: Status post bilateral total knee arthroplasties. Electronically signed by: Edson Todd MD 08/19/2024 03:21 PM [facility]
--- OUTSIDE RECORDS SUMMARY | 2024-07-16 09:16 | XMS_ITS | Clinical Summary ---
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 Machine Operator Name Role Phone FLORESITA SETHI, DAVID Unavailable Unavailable CESAR PT, MEL Unavailable Unavailable JAVED COLEMAN, LOLI Unavailable Unavailable Payers Payer Name Policy Type Policy Number Effective Date Expira tion Date MEDICARE.NGS.PDGM [id number] Problems Condition Name Condition Details Condition Category [...] [BMI] 39.0-39.9, ADULT Active 07-21 00:00: 00 SNF (CURRENT) USE OF ASPIRIN Active 2023-07 00:00: [...] 200 mg capsule 03-25 00:00: 00 Yes [id number] ANTI INFLAMMATOR Y Per instruc tions EVERY DAY NEEDED Per instructio ns EVERY DAY NEEDED (route: oral) Med Classific ation: Analgesic , Anti-infl ammatory or Antipyret ic tamsulosin 0.4 mg capsule 03-21 00:00: 00 Yes [id number] BPH Per instruc tions EVERY DAY Per instructio ns EVERY DAY (route: oral) Med Classific ation: Genitouri nary Therapy acetaminoph en 325 mg tablet 2023-07 00:00: 00 Yes [id number] PAIN 2 tablet EVERY 6 HOURS 2 tablet EVERY 6 HOURS (route: oral) Med Classific ation: Analgesic , Anti-infl ammatory or Antipyret ic amlodipine 5 mg-benazepr il 10 mg capsule 2023-07 00:00: 00 Yes [id number] HTN 1 capsule DAILY 1 capsule DAILY (route: oral) Med Classific ation: Cardiovas cular Therapy Agents aspirin 325 mg tablet 2023-07 00:00: 00 Yes [id number] ANTICOAGULA TION 1 tablet 2 TIMES DAILY 1 tablet 2 TIMES DAILY (route: oral) Med Classific ation: Analgesic , Anti-infl ammatory or Antipyret ic docusate sodium 100 mg tablet 2023-07 00:00: 00 Yes [id number] STOOL SOFTNER 1 tablet 2 TIMES DAILY 1 tablet 2 TIMES DAILY (route: oral) Med Classific ation: Gastroint estinal Therapy Agents gabapentin 100 mg capsule 2023-07 00:00: 00 07-06 23:59 :00 No [id number] PAIN 1 capsule BEDTIME 1 capsule BEDTIME (route: oral) Med Classific ation: Central Nervous System Agents methocarbam ol 500 mg tablet 2023-07 00:00: 00 07-06 23:59 :00 No [id number] MUSCLE RELAXER 1 tablet 3 TIMES DAILY 1 tablet 3 TIMES DAILY (route: oral) Med Classific ation: Locomotor System oxycodone 5 mg tablet 2023-07 00:00: 00 Yes [id number] PAIN 1 tablet EVERY 4 HOURS 1 tablet EVERY 4 HOURS (route: oral) Med Classific ation: Analgesic , Anti-infl ammatory or Antipyret ic Zepbound 2.5 mg/0.5 mL subcutaneou s pen injector 2023-07 00:00: 00 Yes [id number] WEIGHT LOSS 2.5 mg WEEKLY 2.5 mg [...] TO EVALUATE, OBSERVE / ASSESS, AND MONITOR, HEATING AND BLENDING SUPERVISOR TO OBSERVE AND MONITOR, PROVIDE SKILLED THERAPEUTIC INTERVENTION, ACTIVITY, EDUCATION, AND TRAINING TO ADDRESS; [code = AGENCY MAY PERFORM A RESUMPTION OF CARE VISIT FOLLOWING ANY HOSPITAL ADMISSION. PT TO EVALUATE, OBSERVE / ASSESS, AND MONITOR, HEATING AND BLENDING SUPERVISOR TO OBSERVE AND MONITOR, PROVIDE SKILLED THERAPEUTIC INTERVENTION, ACTIVITY, EDUCATION, AND TRAINING TO ADDRESS;] Future Scheduled Test SIT TO/FRO M STAND TRANSFERS (PT/HEATING AND BLENDING SUPERVISOR) [code = SIT TO/FROM STAND TRANSFERS (PT/HEATING AND BLENDING SUPERVISOR)] Future Scheduled Test PT/HEATING AND BLENDING SUPERVISOR TO PROVIDE GAIT TRAINING FOR IMPROVED MOBILITY AND /OR TO NORMALIZE GAIT PATTERN [code = PT/HEATING AND BLENDING SUPERVISOR TO PROVIDE GAIT TRAINING FOR IMPROVED MOBILITY AND /OR TO NORMALIZE GAIT PATTERN] Future Scheduled Test PT/HEATING AND BLENDING SUPERVISOR TO PROVIDE STAIR TRAINING [code = PT/HEATING AND BLENDING SUPERVISOR TO PROVIDE STAIR TRAINING] Future Scheduled Test THERAPEUTI C EXERCISES AND ESTABLISHING A HOME EXERCISE PROGRAM (PT/HEATING AND BLENDING SUPERVISOR) [code = THERAPEUTIC EXERCISES AND ESTABLISHING A HOME EXERCISE PROGRAM (PT/HEATING AND BLENDING SUPERVISOR)] Future Scheduled Test PT/HEATING AND BLENDING SUPERVISOR TO IDENTIFY FALL RISK FACTORS; EDUCATE THE PATIENT/CAREGIVER ON WAYS TO REDUCE FALL RISK FACTORS AND ESTABLISH HOME EXERCISE PROGRAM TO MINIMIZE FALL RISK. MAY TEACH THE PATIENT FLOOR RECOVERY WHEN CLINICALLY APPROPRIATE [code = PT/HEATING AND BLENDING SUPERVISOR TO IDENTIFY FALL RISK FACTORS; EDUCATE THE PATIENT/CAREGIVER ON WAYS TO REDUCE FALL RISK FACTORS AND ESTABLISH HOME EXERCISE PROGRAM TO MINIMIZE FALL RISK. MAY TEACH THE PATIENT FLOOR RECOVERY WHEN CLINICALLY APPROPRIATE] Future Scheduled Test PT/HEATING AND BLENDING SUPERVISOR TO TEACH KNEE REPLACEMENT SELF-MANAGEMENT [code = PT/HEATING AND BLENDING SUPERVISOR TO TEACH KNEE REPLACEMENT SELF-MANAGEMENT] Future Scheduled Test PT TO ASSE SS / HEATING AND BLENDING SUPERVISOR TO MONITOR FOR AND REPORT EARLY SIGNS OF ANTICOAGULANT TOXICITY TO THE PHYSICIAN AND/OR THE RN CLINICAL DRIVER EDUCATION INSTRUCTOR FOR PHYSICIAN NOTIFICATION AND TO PROVIDE PATIENT/CAREGIVER EDUCATION ON ANTICOAGULANT THERAPY [code = PT TO ASSESS / HEATING AND BLENDING SUPERVISOR TO MONITOR FOR AND REPORT EARLY SIGNS OF ANTICOAGULANT TOXICITY TO THE PHYSICIAN AND/OR THE RN CLINICAL DRIVER EDUCATION INSTRUCTOR FOR PHYSICIAN NOTIFICATION AND TO PROVIDE PATIENT/CAREGIVER EDUCATION ON ANTICOAGULANT THERAPY] Future Scheduled Test PT / HEATING AND BLENDING SUPERVISOR T O MONITOR AND EDUCATE ON OXYGEN SATURATION DURING ADLS/IADLS, NOTIFY PHYSICIAN AND/OR THE RN CLINICAL DRIVER EDUCATION INSTRUCTOR FOR PHYSICIAN NOTIFICATION AND IF O2 SATS BELOW PHYSICIAN ORDERED PARAMETERS AFTER 10 MIN OF REST [code = PT / HEATING AND BLENDING SUPERVISOR TO MONITOR AND EDUCATE ON OXYGEN SATURATION DURING ADLS/IADLS, NOTIFY PHYSICIAN AND/OR THE RN CLINICAL DRIVER EDUCATION INSTRUCTOR FOR PHYSICIAN NOTIFICATION AND IF O2 SATS BELOW PHYSICIAN ORDERED PARAMETERS AFTER 10 MIN OF REST] Future Scheduled Test PT / HEATING AND BLENDING SUPERVISOR M AY EDUCATE ON PAIN MANAGEMENT CLINICALLY INDICATED, INCLUDING NON-PHARMACOLOGICAL PAIN REDUCTION TECHNIQUES AND USE OF CRYOTHERAPY UP TO 20 MIN AT A TIME FOR PAIN MANAGEMENT 4 TIMES PER DAY TO RIGHT KNEE [code = PT / HEATING AND BLENDING SUPERVISOR MAY EDUCATE ON PAIN MANAGEMENT CLINICALLY INDICATED, INCLUDING NON-PHARMACOLOGICAL PAIN REDUCTION TECHNIQUES AND USE OF CRYOTHERAPY UP TO 20 MIN AT A TIME FOR PAIN MANAGEMENT 4 TIMES PER DAY TO RIGHT KNEE ] Future Scheduled Test PT / HEATING AND BLENDING SUPERVISOR T O OBSERVE WOUND/INCISION AND/OR INTACT DRESSING ON RIGHT KNEE AND REPORT EARLY SIGNS AND SYMPTOMS OF WOUND DETERIORATION, COMPLICATIONS, OR INFECTION TO PHYSICIAN AND/OR THE RN CLINICAL DRIVER EDUCATION INSTRUCTOR FOR PHYSICIAN NOTIFICATION. [code = PT / HEATING AND BLENDING SUPERVISOR TO OBSERVE WOUND/INCISION AND/OR INTACT DRESSING ON RIGHT KNEE AND REPORT EARLY SIGNS AND SYMPTOMS OF WOUND DETERIORATION, COMPLICATIONS, OR INFECTION TO PHYSICIAN AND/OR THE RN CLINICAL DRIVER EDUCATION INSTRUCTOR FOR PHYSICIAN NOTIFICATION.] Goal 2024-07-12 Patient Goal [...] End Date/Time Encounter Type Admission Type Attending [facility] Care Department Encounter ID Discharge Date Discharge Status Discharge Condition Discharge Reason Percent Goals Met 2024-06-30 00:00:00 2024-07-12 00:00:00 Outpatient NEW ADMISSION [facility] [id number] 2024-07-12 00:00:00 DISCHARGE TO HOME OR SELF CARE INDEPENDEN T WITH USE OF ASSISTIVE DEVICE HH ONLY - OUT PATIENT 92.86
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
== END 2024-07-15 09:01 | disposition home or self-care (01) ==
LOC: HO.HOSX 09:00
PROVIDERS: Visit Provider Physician Assistant
DX: Z96.651 Presence of right artificial knee joint (principal); M25.562 Pain in left knee
CPT/HCPCS: 73560; 73562; 99212

== ENCOUNTER 2024-07-15 12:46 | Outpatient (AMB) | payer MEDICARE, SELFPAY ==
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
--- OUTSIDE RECORDS SUMMARY | 2024-07-15 12:49 | XMS_ITS | Clinical Summary ---
Author Organization Unknown Care Team Providers Care Scooter Mechanic Name Role Phone FLORESITA SETHI, DAVID Unavailable Unavailable CESAR PT, MEL Unavailable Unavailable JAVED COLEMAN, LOLI Unavailable Unavailable Payers Payer Name Policy Type Policy Number Effective Date Expira tion Date MEDICARE.NGS.PDGM [id number] Problems Condition Name Condition Details Condition Category Status Onset Date Resolution Date Last Treatment Date Treating Clinician Comments AFTERCARE FOLLOWING JOINT REPLACEMENT SURGERY Active 2023-07 00:00: 00 PRESENCE OF RIGHT ARTIFICIAL KNEE JOINT Active 2023-07 00:00: 00 ESSENTIAL (PRIMARY) HYPERTENSION Active 07-21 00:00: 00 Oth intvrt disc degen, 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 Active 07-21 00:00: 00 BENIGN PROSTATIC HYPERPLASIA WITHOUT LOWER URINRY TRACT SYMP Active 07-21 00:00: 00 CYST OF KIDNEY, ACQUIRED Active 07-21 00:00: 00 PILONIDAL 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 Active 07-21 00:00: 00 Obesity, class 2 Active 07-21 00:00: 00 BODY MASS INDEX [BMI] 39.0-39.9, ADULT Active 07-21 00:00: 00 SENIOR LIVING (CURRENT) USE OF ASPIRIN Active 2023-07 00:00: 00 PRESENCE OF LEFT ARTIFICIAL KNEE JOINT Active 09-01 00:00: 00 PERSONAL HISTORY OF OTHER MALIGNANT NEOPLASM OF SKIN Active 07-21 00:00: 00 Allergies, Adverse Reactions, Alerts Allergy Name Allergy Type Status Severity Reaction(s) Onset Date Inactive Date Treating Clinician Comments PEACH Propensity to adverse reactions Active 2024-06 05:58:3 1 HAZELNUT Propensity to adverse reactions Active 2024-06 05:58:4 4 Medications Ordered Medication Name Filled Medication Name Start Date Stop Date Current Medication? Ordering Clinician Indication Dosage Frequency Signature (SIG) Comments Components celecoxib 200 mg capsule 03-25 00:00: 00 Yes [id number] ANTI INFLAMMATOR Y Per instruc tions EVERY DAY NEEDED Per instructio ns EVERY DAY NEEDED (route: oral) Med Classific ation: Analgesic , Anti-infl ammatory or Antipyret ic tamsulosin 0.4 mg capsule 03-21 00:00: 00 Yes [id number] BPH Per instruc tions EVERY DAY Per instructio ns EVERY DAY (route: oral) Med Classific ation: Genitouri nary Therapy acetaminoph en 325 mg tablet 2023-07 00:00: 00 Yes [id number] PAIN 2 tablet EVERY 6 HOURS 2 tablet EVERY 6 HOURS (route: oral) Med Classific ation: Analgesic , Anti-infl ammatory or Antipyret ic amlodipine 5 mg-benazepr il 10 mg capsule 2023-07 00:00: 00 Yes [id number] HTN 1 capsule DAILY 1 capsule DAILY (route: oral) Med Classific ation: Cardiovas cular Therapy Agents aspirin 325 mg tablet 2023-07 00:00: 00 Yes [id number] ANTICOAGULA TION 1 tablet 2 TIMES DAILY 1 tablet 2 TIMES DAILY (route: oral) Med Classific ation: Analgesic , Anti-infl ammatory or Antipyret ic docusate sodium 100 mg tablet 2023-07 00:00: 00 Yes [id number] STOOL SOFTNER 1 tablet 2 TIMES DAILY 1 tablet 2 TIMES DAILY (route: oral) Med Classific ation: Gastroint estinal Therapy Agents gabapentin 100 mg capsule 2023-07 00:00: 00 07-06 23:59 :00 No [id number] PAIN 1 capsule BEDTIME 1 capsule BEDTIME (route: oral) Med Classific ation: Central Nervous System Agents methocarbam ol 500 mg tablet 2023-07 00:00: 00 07-06 23:59 :00 No [id number] MUSCLE RELAXER 1 tablet 3 TIMES DAILY 1 tablet 3 TIMES DAILY (route: oral) Med Classific ation: Locomotor System oxycodone 5 mg tablet 2023-07 00:00: 00 Yes [id number] PAIN 1 tablet EVERY 4 HOURS 1 tablet EVERY 4 HOURS (route: oral) Med Classific ation: Analgesic , Anti-infl ammatory or Antipyret ic Zepbound 2.5 mg/0.5 mL subcutaneou s pen injector 2023-07 00:00: 00 Yes [id number] WEIGHT LOSS 2.5 mg WEEKLY 2.5 mg WEEKLY (route: subcutaneo us) Med Classific ation: Weight Loss/Gain Agents Vital Signs Vital Name Observation Time Observation Value Commen ts Temperature 2024-07-12 09:47:00.000 98 [degF] Temperature 2024-07-09 13:33:00.000 98.6 [degF] Temperature 2024-07-07 09:27:00.000 98.2 [degF] Temperature 2024-07-05 09:19:00.000 98.1 [degF] Temperature 2024-07-02 08:31:00.000 98.6 [degF] Temperature 2024-06-30 15:07:00.000 97.5 [degF] BMI (%) 2024-06-30 15:07:00.000 33 kg/m2 Height 2024-06-30 15:07:00.000 70 [in_us] Pulse 2024-07-12 09:47:00.000 76 /min Pulse 2024-07-09 13:33:00.000 65 /min Pulse 2024-07-07 09:27:00.000 86 /min Pulse 2024-07-05 09:19:00.000 75 /min Pulse 2024-07-02 08:31:00.000 98 /min Pulse 2024-06-30 15:07:00.000 74 /min O2 Saturation (%) 2024-07-12 09:48:00.000 97 % Respirations 2024-07-12 09:47:00.000 16 /min Respirations 2024-07-09 13:33:00.000 18 /min Respirations 2024-07-07 09:27:00.000 18 /min Respirations 2024-07-05 09:19:00.000 18 /min Respirations 2024-07-02 08:31:00.000 18 /min Respirations 2024-06-30 15:07:00.000 18 /min Weight (lbs) 2024-06-30 15:07:00.000 235 [lb_av] Systolic Blood Pressure 2024-07-12 09:47:00.000 124 mm [Hg] Systolic Blood Pressure 2024-07-09 13:33:00.000 122 mm [Hg] Systolic Blood Pressure 2024-07-07 09:27:00.000 126 mm [Hg] Systolic Blood Pressure 2024-07-05 09:19:00.000 150 mm [Hg] Systolic Blood Pressure 2024-07-02 08:31:00.000 140 mm [Hg] Systolic Blood Pressure 2024-06-30 15:07:00.000 130 mm [Hg] Diastolic Blood Pressure 2024-07-12 09:47:00.000 68 mm [Hg] Diastolic Blood Pressure 2024-07-09 13:33:00.000 70 mm [Hg] Diastolic Blood Pressure 2024-07-07 09:27:00.000 70 mm [Hg] Diastolic Blood Pressure 2024-07-05 09:19:00.000 80 mm [Hg] Diastolic Blood Pressure 2024-07-02 08:31:00.000 72 mm [Hg] Diastolic Blood Pressure 2024-06-30 15:07:00.000 80 mm [Hg] Plan of Treatment Planned Activity Planned Date Details Comments Future Scheduled Test AGENCY MAY PERFORM A RESUMPTION OF CARE VISIT FOLLOWING ANY HOSPITAL ADMISSION. PT TO EVALUATE, OBSERVE / ASSESS, AND MONITOR, JIG WORKER TO OBSERVE AND MONITOR, PROVIDE SKILLED THERAPEUTIC INTERVENTION, ACTIVITY, EDUCATION, AND TRAINING TO ADDRESS; [code = AGENCY MAY PERFORM A RESUMPTION OF CARE VISIT FOLLOWING ANY HOSPITAL ADMISSION. PT TO EVALUATE, OBSERVE / ASSESS, AND MONITOR, JIG WORKER TO OBSERVE AND MONITOR, PROVIDE SKILLED THERAPEUTIC INTERVENTION, ACTIVITY, EDUCATION, AND TRAINING TO ADDRESS;] Future Scheduled Test SIT TO/FRO M STAND TRANSFERS (PT/JIG WORKER) [code = SIT TO/FROM STAND TRANSFERS (PT/JIG WORKER)] Future Scheduled Test PT/JIG WORKER TO PROVIDE GAIT TRAINING FOR IMPROVED MOBILITY AND /OR TO NORMALIZE GAIT PATTERN [code = PT/JIG WORKER TO PROVIDE GAIT TRAINING FOR IMPROVED MOBILITY AND /OR TO NORMALIZE GAIT PATTERN] Future Scheduled Test PT/JIG WORKER TO PROVIDE STAIR TRAINING [code = PT/JIG WORKER TO PROVIDE STAIR TRAINING] Future Scheduled Test THERAPEUTI C EXERCISES AND ESTABLISHING A HOME EXERCISE PROGRAM (PT/JIG WORKER) [code = THERAPEUTIC EXERCISES AND ESTABLISHING A HOME EXERCISE PROGRAM (PT/JIG WORKER)] Future Scheduled Test PT/JIG WORKER TO IDENTIFY FALL RISK FACTORS; EDUCATE THE PATIENT/CAREGIVER ON WAYS TO REDUCE FALL RISK FACTORS AND ESTABLISH HOME EXERCISE PROGRAM TO MINIMIZE FALL RISK. MAY TEACH THE PATIENT FLOOR RECOVERY WHEN CLINICALLY APPROPRIATE [code = PT/JIG WORKER TO IDENTIFY FALL RISK FACTORS; EDUCATE THE PATIENT/CAREGIVER ON WAYS TO REDUCE FALL RISK FACTORS AND ESTABLISH HOME EXERCISE PROGRAM TO MINIMIZE FALL RISK. MAY TEACH THE PATIENT FLOOR RECOVERY WHEN CLINICALLY APPROPRIATE] Future Scheduled Test PT/JIG WORKER TO TEACH KNEE REPLACEMENT SELF-MANAGEMENT [code = PT/JIG WORKER TO TEACH KNEE REPLACEMENT SELF-MANAGEMENT] Future Scheduled Test PT TO ASSE SS / JIG WORKER TO MONITOR FOR AND REPORT EARLY SIGNS OF ANTICOAGULANT TOXICITY TO THE PHYSICIAN AND/OR THE RN CLINICAL STUDENT DEAN FOR PHYSICIAN NOTIFICATION AND TO PROVIDE PATIENT/CAREGIVER EDUCATION ON ANTICOAGULANT THERAPY [code = PT TO ASSESS / JIG WORKER TO MONITOR FOR AND REPORT EARLY SIGNS OF ANTICOAGULANT TOXICITY TO THE PHYSICIAN AND/OR THE RN CLINICAL STUDENT DEAN FOR PHYSICIAN NOTIFICATION AND TO PROVIDE PATIENT/CAREGIVER EDUCATION ON ANTICOAGULANT THERAPY] Future Scheduled Test PT / JIG WORKER T O MONITOR AND EDUCATE ON OXYGEN SATURATION DURING ADLS/IADLS, NOTIFY PHYSICIAN AND/OR THE RN CLINICAL STUDENT DEAN FOR PHYSICIAN NOTIFICATION AND IF O2 SATS BELOW PHYSICIAN ORDERED PARAMETERS AFTER 10 MIN OF REST [code = PT / JIG WORKER TO MONITOR AND EDUCATE ON OXYGEN SATURATION DURING ADLS/IADLS, NOTIFY PHYSICIAN AND/OR THE RN CLINICAL STUDENT DEAN FOR PHYSICIAN NOTIFICATION AND IF O2 SATS BELOW PHYSICIAN ORDERED PARAMETERS AFTER 10 MIN OF REST] Future Scheduled Test PT / JIG WORKER M AY EDUCATE ON PAIN MANAGEMENT CLINICALLY INDICATED, INCLUDING NON-PHARMACOLOGICAL PAIN REDUCTION TECHNIQUES AND USE OF CRYOTHERAPY UP TO 20 MIN AT A TIME FOR PAIN MANAGEMENT 4 TIMES PER DAY TO RIGHT KNEE [code = PT / JIG WORKER MAY EDUCATE ON PAIN MANAGEMENT CLINICALLY INDICATED, INCLUDING NON-PHARMACOLOGICAL PAIN REDUCTION TECHNIQUES AND USE OF CRYOTHERAPY UP TO 20 MIN AT A TIME FOR PAIN MANAGEMENT 4 TIMES PER DAY TO RIGHT KNEE ] Future Scheduled Test PT / JIG WORKER T O OBSERVE WOUND/INCISION AND/OR INTACT DRESSING ON RIGHT KNEE AND REPORT EARLY SIGNS AND SYMPTOMS OF WOUND DETERIORATION, COMPLICATIONS, OR INFECTION TO PHYSICIAN AND/OR THE RN CLINICAL STUDENT DEAN FOR PHYSICIAN NOTIFICATION. [code = PT / JIG WORKER TO OBSERVE WOUND/INCISION AND/OR INTACT DRESSING ON RIGHT KNEE AND REPORT EARLY SIGNS AND SYMPTOMS OF WOUND DETERIORATION, COMPLICATIONS, OR INFECTION TO PHYSICIAN AND/OR THE RN CLINICAL STUDENT DEAN FOR PHYSICIAN NOTIFICATION.] Goal 2024-07-12 Patient Goal - HEAL PROPERL Y Goal Provider Goal - Goal Provider Goal - PT STG: PATIENT WILL DEMONSTRATE IMPROVED ABILITY TO PERFORM SIT TO/FROM STAND TRANSFERS TO REDUCE THE RISK OF SKIN BREAKDOWN AND REDUCE FALL RISK FROM MIN ASSIST TO INDEPENDENT WITHIN 3 WEEKS Goal Provider Goal - PT LTG: PATIENT WILL DEMONSTRATE REDUCED GAIT DEVIATIONS TO REDUCE THE RISK FOR FALLING AND MINIMIZE STRAIN ON KNEES/HIPS AND BACK EVIDENCED BY IMPROVED HEEL STRIKE, ADEQUATE STEP LENGTH AND CONSISTENT FOOT CLEARANCE BILATERALLY USING WALKER TO WALK INDEPENDENTLY IN ORDER TO ACCESS ALL AREAS OF THE HOME AND TRANSPORTATION WITHIN 3 WEEKS Goal Provider Goal - PT LTG: PATIENT WILL DEMONSTRATE IMPROVED ABILITY TO SAFELY NEGOTIATE STAIRS FROM MIN ASSIST TO INDEPENDENT WITH CANE AND RAIL IN ORDER TO IMPROVE SAFETY WITH ACCESSING SECOND FLOOR BEDROOM WITHIN 3 WEEKS Goal Provider Goal - PT LTG: PATIENT WILL DEMONSTRATE INCREASED STRENGTH OF RIGHT KNEE FROM 2+/5 TO 3/5 WITHIN 3 WEEKS IN ORDER TO IMPROVE SAFETY AND STABILITY WITH GAIT AND STAIRS PT LTG: PATIENT WILL DEMONSTRATE INCREASED ROM OF RIGHT KNEE FROM -5-83 DEGREES TO 0-120 DEGREES WITHIN 3 WEEKS IN ORDER TO IMPROVE GAIT PATTERN AND TECHNIQUE WITH STAIRS AND TRANSFERS Goal Provider Goal - PT LTG: PATIENT/CAREGIVER WILL DEMONSTRATE ADHERENCE TO FALL REDUCTION SELF-MANAGEMENT AND REDUCING FALL RISK FACTORS TO MINIMIZE FALL RISK BY END OF EPISODE. PT LTG: PATIENT WILL BE INDEPENDENT WITH IMPLEMENTATION OF HEP WITHIN 3 WEEKS Goal Provider Goal - PT GOAL: PATIENT WILL DEMONSTRATE OPTIMAL OUTCOMES, INCLUDING INCREASED ROM AND STRENGTH AND FUNCTIONAL MOBILITY FOLLOWING KNEE SURGERY BY END OF EPISODE. Goal Provider Goal - PT LTG: PATIENT WILL NOT EXHIBIT SIGNS AND SYMPTOMS OF ANTICOAGULANT TOXICITY THROUGHOUT EPISODE OF CARE. Goal Provider Goal - PT LTG: PATIENT WILL MAINTAIN OXYGEN SATURATION WITHIN PHYSICIAN ORDERED PARAMETERS THROUGHOUT EPISODE OF CARE. Goal Provider Goal - PT GOAL: PATIENT WILL DEMONSTRATE UNDERSTANDING OF PAIN MANAGEMENT TECHNIQUES EVIDENCED BY REDUCED PAIN IN RIGHT KNEE FROM 10/10 TO 5/10 WITHIN 3 WEEKS Goal Provider Goal - PT GOAL: THE PATIENT WILL NOT DEMONSTRATE ANY WOUND COMPLICATIONS DURING THE EPISODE OF CARE. Reason for Visit INDEPENDENT WITH USE OF ASSISTIVE DEVICE Encounters Start Date/Time End Date/Time Encounter Type Admission Type Attending [facility] Care Facility Care Department Encounter ID Discharge Date Discharge Status Discharge Condition Discharge Reason Percent Goals Met 2024-06-30 00:00:00 2024-07-12 00:00:00 Outpatient NEW ADMISSION [facility] [id number] 2024-07-12 00:00:00 DISCHARGE TO HOME OR SELF CARE INDEPENDEN T WITH USE OF ASSISTIVE DEVICE HH ONLY - OUT PATIENT [id number]
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
--- NOTE | 2024-07-15 13:03 | MHC.OFFVIS ---
Intake Visit Reasons: 2WK PO: right TKA 06/28/24 Intake Note: Musa is a 68 year old male who presents today for a post op appointment s/p Right TKA 06/28/24 Patient reports he is still having pain since surgery. Allergies hazelnut Allergy (Verified 07/15/24 13:05) Itching peach Allergy (Verified 07/15/24 13:05) Itching HPI HPI 2WK PO: right TKA 06/28/24 DR: Details: 68-year-old male who presents in the office today for a 17 day status post right total knee arthroplasty, which was performed on 06/28/[address] Wright. While in the office today, the patient reports persistent right knee pain since surgery. The patient is status post total left knee arthroplasty which was performed on 09/01/2023. [facility] Medical History Pilonidal cyst Skin cancer Arthritis Back pain Umbilical hernia Renal cyst Obesity, Class II, BMI 35-39.9 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, non-recurrent HTN (hypertension) BPH (benign prostatic hyperplasia) Arthritis of left knee Surgical History History of surgical removal of pilonidal cyst Hx of shoulder surgery History of total left knee replacement H/O colonoscopy Hx of rotator cuff surgery Hx of toe surgery Family History Other HTN (hypertension) Social History Household Members: Spouse Housing: House Are you a primary healthcare analyst to a significant other at home: No Do you presently have visiting nurse or other home services: Yes Patient Tobacco Use Status: Never used Tobacco service: No Current occupational status: other Review of Systems Const All systems reviewed & are unremarkable except as noted in HPI and below Physical Exam Const General: cooperative, healthy appearing and no acute distress Resp Effort & Inspection: normal respiratory effort and able to speak in complete sentences Cardio Rate: regular rate Peripheral pulses: Peripheral pulses 2+ throughout GI Palpation (GI): Soft to palpation Skin Lesions: no lesions Rashes: no rashes Extrem Other: Right knee: Incision site is clean, dry and intact. Thania intact. No surrounding erythema or drainage. No signs of infection. Active range of motion is 10 to 90 degrees. Calf is supple and nontender. NVI. Assessment & Plan Assessment & Plan (1) Status post total right knee replacement: Code(s): Z96.651 - Presence of right artificial knee joint Category: Surgical (2) Arthritis of right knee: Code(s): M17.11 - Unilateral primary osteoarthritis, right knee Category: Medical Plan Mr. Pollack is a 68-year-old male who presents in the office today for a 17 day status post right total knee arthroplasty, which was performed on 06/28/[address] Wright. While in the office today, the patient reports persistent right knee pain since surgery. The patient is status post total left knee arthroplasty done on 09/01/2023. Thania were removed, and steri-strips were applied. A refill for oxycodone 5 mg PO Q6H PRN for pain was sent to the pharmacy. He will attend physical therapy at [facility] and a prescription for physical therapy has been provided to the patient. I sent a prescription for an antibiotic, amoxicillin 2000 mg PO prophylactically for possible dental work in the future. However, the patient was educated they should not have any major dental work for the first 3 months post op after the right total knee arthroplasty. Follow-up will be in [address] Wright, or sooner if needed. X-rays of the right knee, which were obtained while in the office today and were reviewed by me, Dipti Osman PA-C, revealed: Intact orthopedic hardware with satisfactory alignment. Orders: Orders XR knee RT 3V 07/15/24 M25.569 - Pain in unspecified knee XR knee LT 1V 07/15/24 M25.569 - Pain in unspecified knee PT Evaluation and Treatment 07/15/24 Z96.651 - Presence of right artificial knee joint Medications: New amoxicillin 2,000 mg (4 x 500 mg) PO ONCE 4 tabs 0RF take 4 tabs by mouth 1 hour prior to dental ppx 1 day Refilled oxycodone Partial Fill upon patient request. 5 mg PO Q6H PRN 28 tabs 0RF Pain, Mild (Pain Scale 1-3) 7 days Patient Instructions: Scribed by Ashley Yi, medical education specialist, for Dipti Osman PA-C on 07/15/24 at 1:42 pm EST. Coding Level of Care Code Global (27488) Diagnoses Status post total right knee replacement Z96.651 Arthritis of right knee M17.11
== END 2024-07-15 13:42 | disposition home or self-care (01) ==
PROVIDERS: Visit Provider Physician Assistant
DX: Z96.651 Presence of right artificial knee joint (principal); M17.11 Unilateral primary osteoarthritis, right knee
CPT/HCPCS: 99024

== ENCOUNTER 2024-08-05 11:32 | Outpatient (AMB) | payer MEDICARE, SELFPAY ==
--- NOTE | 2024-08-05 11:38 | A.OFFVIS_ITS ---
Intake Visit Reasons: 6WK PO: R TKA w/ 06/28/24 Intake Note: Musa is a 68 year old male who presents with complaints of mild to moderate discomfort in his right knee after undergoing right total knee replacement surgery on 06/28/2024. He continues with his physical therapy exercises. He denies any fevers or chills. Allergies hazelnut Allergy (Verified 08/05/24 11:43) Itching peach Allergy (Verified 08/05/24 11:43) Itching Medication List - Last Reconciled 08/05/24 by Db Wright MD acetaminophen 650 mg (2 x 325 mg) PO Q6H PRN 30 days amlodipine-benazepril 5-10 mg 1 cap PO DAILY amoxicillin 2,000 mg (4 x 500 mg) PO ONCE 1 day aspirin 325 mg PO BID 42 days celecoxib 200 mg PO DAILY PRN 30 days docusate sodium 100 mg PO BID 14 days gabapentin 100 mg PO BEDTIME 7 days methocarbamol 500 mg PO TID 7 days oxycodone 5 mg PO Q6H PRN tamsulosin 0.4 mg PO DAILY tirzepatide 2.5 mg subcut QWEEK walker Folding front wheeled walker walker Folding front wheeled walker [facility] Medical History Pilonidal cyst Skin cancer Arthritis Back pain Umbilical hernia Renal cyst Obesity, Class II, BMI 35-39.9 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, non-recurrent HTN (hypertension) BPH (benign prostatic hyperplasia) Arthritis of left knee Surgical History History of surgical removal of pilonidal cyst Hx of shoulder surgery History of total left knee replacement H/O colonoscopy Hx of rotator cuff surgery Hx of toe surgery Family History Other HTN (hypertension) Social History Household Members: Spouse Housing: House Are you a primary ambulatory care nurse to a significant other at home: No Do you presently have visiting nurse or other home services: Yes Patient Tobacco Use Status: Never used Tobacco service: No Current occupational status: other Physical Exam Extrem Other: Right knee examination shows that the surgical incision is well healed, no erythema, range of motion from -3 degrees to 110 degrees, his patella tracks well Assessment & Plan Assessment & Plan (1) Left knee pain: Code(s): M25.562 - Pain in left knee Category: Medical Plan Mr. Pollack continues to do well after undergoing right total knee replacement surgery on 06/28/2024. He will continue with his physical therapy exercises. He does know to take antibiotics any dental work. He will contact me prior to his follow-up appointment in 2 months should any questions or concerns arise. Coding Level of Care Code Global (06572) Diagnoses Left knee pain M25.562
--- OUTSIDE RECORDS SUMMARY | 2024-08-05 14:38 | XMS_ITS | Clinical Summary ---
Author Organization Unknown Care Team Providers Care Iuss Master Analyst Name Role Phone FLORESITA SETHI, DAVID Unavailable Unavailable CESAR PT, MEL Unavailable Unavailable JAVED COLEMAN, LOLI Unavailable Unavailable Payers Payer Name Policy Type Policy Number Effective Date Expira tion Date MEDICARE.NGS.PDGM [id number] Problems Condition Name Condition Details Condition Category [...] [BMI] 39.0-39.9, ADULT Active 07-21 00:00: 00 TERMITE TREATER (CURRENT) USE OF ASPIRIN Active 2023-07 00:00: [...] 200 mg capsule 03-25 00:00: 00 Yes [id number] ANTI INFLAMMATOR Y Per instruc tions EVERY DAY NEEDED Per instructio ns EVERY DAY NEEDED (route: oral) Med Classific ation: Analgesic , Anti-infl ammatory or Antipyret ic tamsulosin 0.4 mg capsule 03-21 00:00: 00 Yes [id number] BPH Per instruc tions EVERY DAY Per instructio ns EVERY DAY (route: oral) Med Classific ation: Genitouri nary Therapy acetaminoph en 325 mg tablet 2023-07 00:00: 00 Yes [id number] PAIN 2 tablet EVERY 6 HOURS 2 tablet EVERY 6 HOURS (route: oral) Med Classific ation: Analgesic , Anti-infl ammatory or Antipyret ic amlodipine 5 mg-benazepr il 10 mg capsule 2023-07 00:00: 00 Yes [id number] HTN 1 capsule DAILY 1 capsule DAILY (route: oral) Med Classific ation: Cardiovas cular Therapy Agents aspirin 325 mg tablet 2023-07 00:00: 00 Yes [id number] ANTICOAGULA TION 1 tablet 2 TIMES DAILY 1 tablet 2 TIMES DAILY (route: oral) Med Classific ation: Analgesic , Anti-infl ammatory or Antipyret ic docusate sodium 100 mg tablet 2023-07 00:00: 00 Yes [id number] STOOL SOFTNER 1 tablet 2 TIMES DAILY 1 tablet 2 TIMES DAILY (route: oral) Med Classific ation: Gastroint estinal Therapy Agents gabapentin 100 mg capsule 2023-07 00:00: 00 07-06 23:59 :00 No [id number] PAIN 1 capsule BEDTIME 1 capsule BEDTIME (route: oral) Med Classific ation: Central Nervous System Agents methocarbam ol 500 mg tablet 2023-07 00:00: 00 07-06 23:59 :00 No [id number] MUSCLE RELAXER 1 tablet 3 TIMES DAILY 1 tablet 3 TIMES DAILY (route: oral) Med Classific ation: Locomotor System oxycodone 5 mg tablet 2023-07 00:00: 00 Yes [id number] PAIN 1 tablet EVERY 4 HOURS 1 tablet EVERY 4 HOURS (route: oral) Med Classific ation: Analgesic , Anti-infl ammatory or Antipyret ic Zepbound 2.5 mg/0.5 mL subcutaneou s pen injector 2023-07 00:00: 00 Yes [id number] WEIGHT LOSS 2.5 mg WEEKLY 2.5 mg [...] TO EVALUATE, OBSERVE / ASSESS, AND MONITOR, CASING WRINGER OPERATOR TO OBSERVE AND MONITOR, PROVIDE SKILLED THERAPEUTIC INTERVENTION, ACTIVITY, EDUCATION, AND TRAINING TO ADDRESS; [code = AGENCY MAY PERFORM A RESUMPTION OF CARE VISIT FOLLOWING ANY HOSPITAL ADMISSION. PT TO EVALUATE, OBSERVE / ASSESS, AND MONITOR, CASING WRINGER OPERATOR TO OBSERVE AND MONITOR, PROVIDE SKILLED THERAPEUTIC INTERVENTION, ACTIVITY, EDUCATION, AND TRAINING TO ADDRESS;] Future Scheduled Test SIT TO/FRO M STAND TRANSFERS (PT/CASING WRINGER OPERATOR) [code = SIT TO/FROM STAND TRANSFERS (PT/CASING WRINGER OPERATOR)] Future Scheduled Test PT/CASING WRINGER OPERATOR TO PROVIDE GAIT TRAINING FOR IMPROVED MOBILITY AND /OR TO NORMALIZE GAIT PATTERN [code = PT/CASING WRINGER OPERATOR TO PROVIDE GAIT TRAINING FOR IMPROVED MOBILITY AND /OR TO NORMALIZE GAIT PATTERN] Future Scheduled Test PT/CASING WRINGER OPERATOR TO PROVIDE STAIR TRAINING [code = PT/CASING WRINGER OPERATOR TO PROVIDE STAIR TRAINING] Future Scheduled Test THERAPEUTI C EXERCISES AND ESTABLISHING A HOME EXERCISE PROGRAM (PT/CASING WRINGER OPERATOR) [code = THERAPEUTIC EXERCISES AND ESTABLISHING A HOME EXERCISE PROGRAM (PT/CASING WRINGER OPERATOR)] Future Scheduled Test PT/CASING WRINGER OPERATOR TO IDENTIFY FALL RISK FACTORS; EDUCATE THE PATIENT/CAREGIVER ON WAYS TO REDUCE FALL RISK FACTORS AND ESTABLISH HOME EXERCISE PROGRAM TO MINIMIZE FALL RISK. MAY TEACH THE PATIENT FLOOR RECOVERY WHEN CLINICALLY APPROPRIATE [code = PT/CASING WRINGER OPERATOR TO IDENTIFY FALL RISK FACTORS; EDUCATE THE PATIENT/CAREGIVER ON WAYS TO REDUCE FALL RISK FACTORS AND ESTABLISH HOME EXERCISE PROGRAM TO MINIMIZE FALL RISK. MAY TEACH THE PATIENT FLOOR RECOVERY WHEN CLINICALLY APPROPRIATE] Future Scheduled Test PT/CASING WRINGER OPERATOR TO TEACH KNEE REPLACEMENT SELF-MANAGEMENT [code = PT/CASING WRINGER OPERATOR TO TEACH KNEE REPLACEMENT SELF-MANAGEMENT] Future Scheduled Test PT TO ASSE SS / CASING WRINGER OPERATOR TO MONITOR FOR AND REPORT EARLY SIGNS OF ANTICOAGULANT TOXICITY TO THE PHYSICIAN AND/OR THE RN CLINICAL LIFE SKILLS EDUCATOR FOR PHYSICIAN NOTIFICATION AND TO PROVIDE PATIENT/CAREGIVER EDUCATION ON ANTICOAGULANT THERAPY [code = PT TO ASSESS / CASING WRINGER OPERATOR TO MONITOR FOR AND REPORT EARLY SIGNS OF ANTICOAGULANT TOXICITY TO THE PHYSICIAN AND/OR THE RN CLINICAL LIFE SKILLS EDUCATOR FOR PHYSICIAN NOTIFICATION AND TO PROVIDE PATIENT/CAREGIVER EDUCATION ON ANTICOAGULANT THERAPY] Future Scheduled Test PT / CASING WRINGER OPERATOR T O MONITOR AND EDUCATE ON OXYGEN SATURATION DURING ADLS/IADLS, NOTIFY PHYSICIAN AND/OR THE RN CLINICAL LIFE SKILLS EDUCATOR FOR PHYSICIAN NOTIFICATION AND IF O2 SATS BELOW PHYSICIAN ORDERED PARAMETERS AFTER 10 MIN OF REST [code = PT / CASING WRINGER OPERATOR TO MONITOR AND EDUCATE ON OXYGEN SATURATION DURING ADLS/IADLS, NOTIFY PHYSICIAN AND/OR THE RN CLINICAL LIFE SKILLS EDUCATOR FOR PHYSICIAN NOTIFICATION AND IF O2 SATS BELOW PHYSICIAN ORDERED PARAMETERS AFTER 10 MIN OF REST] Future Scheduled Test PT / CASING WRINGER OPERATOR M AY EDUCATE ON PAIN MANAGEMENT CLINICALLY INDICATED, INCLUDING NON-PHARMACOLOGICAL PAIN REDUCTION TECHNIQUES AND USE OF CRYOTHERAPY UP TO 20 MIN AT A TIME FOR PAIN MANAGEMENT 4 TIMES PER DAY TO RIGHT KNEE [code = PT / CASING WRINGER OPERATOR MAY EDUCATE ON PAIN MANAGEMENT CLINICALLY INDICATED, INCLUDING NON-PHARMACOLOGICAL PAIN REDUCTION TECHNIQUES AND USE OF CRYOTHERAPY UP TO 20 MIN AT A TIME FOR PAIN MANAGEMENT 4 TIMES PER DAY TO RIGHT KNEE ] Future Scheduled Test PT / CASING WRINGER OPERATOR T O OBSERVE WOUND/INCISION AND/OR INTACT DRESSING ON RIGHT KNEE AND REPORT EARLY SIGNS AND SYMPTOMS OF WOUND DETERIORATION, COMPLICATIONS, OR INFECTION TO PHYSICIAN AND/OR THE RN CLINICAL LIFE SKILLS EDUCATOR FOR PHYSICIAN NOTIFICATION. [code = PT / CASING WRINGER OPERATOR TO OBSERVE WOUND/INCISION AND/OR INTACT DRESSING ON RIGHT KNEE AND REPORT EARLY SIGNS AND SYMPTOMS OF WOUND DETERIORATION, COMPLICATIONS, OR INFECTION TO PHYSICIAN AND/OR THE RN CLINICAL LIFE SKILLS EDUCATOR FOR PHYSICIAN NOTIFICATION.] Goal 2024-07-12 Patient Goal [...] End Date/Time Encounter Type Admission Type Attending [facility] Care Facility Care Department Encounter ID Discharge Date Discharge Status Discharge Condition Discharge Reason Percent Goals Met 2024-06-30 00:00:00 2024-07-12 00:00:00 Outpatient NEW ADMISSION [facility] [id number] 2024-07-12 00:00:00 DISCHARGE TO HOME OR SELF CARE INDEPENDEN T WITH USE OF ASSISTIVE DEVICE HH ONLY - OUT PATIENT 92.86
--- OUTSIDE RECORDS SUMMARY | 2024-08-05 14:38 | XMS_ITS | Clinical Summary ---
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) USE OF ASPIRIN Active 2023-07 00:00: [...] 200 mg capsule 03-25 00:00: 00 Yes [id number] ANTI INFLAMMATOR Y Per instruc tions EVERY DAY NEEDED Per instructio ns EVERY DAY NEEDED (route: oral) Med Classific ation: Analgesic , Anti-infl ammatory or Antipyret ic tamsulosin 0.4 mg capsule 03-21 00:00: 00 Yes [id number] BPH Per instruc tions EVERY DAY Per instructio ns EVERY DAY (route: oral) Med Classific ation: Genitouri nary Therapy acetaminoph en 325 mg tablet 2023-07 00:00: 00 Yes [id number] PAIN 2 tablet EVERY 6 HOURS 2 tablet EVERY 6 HOURS (route: oral) Med Classific ation: Analgesic , Anti-infl ammatory or Antipyret ic amlodipine 5 mg-benazepr il 10 mg capsule 2023-07 00:00: 00 Yes [id number] HTN 1 capsule DAILY 1 capsule DAILY (route: oral) Med Classific ation: Cardiovas cular Therapy Agents aspirin 325 mg tablet 2023-07 00:00: 00 Yes [id number] ANTICOAGULA TION 1 tablet 2 TIMES DAILY 1 tablet 2 TIMES DAILY (route: oral) Med Classific ation: Analgesic , Anti-infl ammatory or Antipyret ic docusate sodium 100 mg tablet 2023-07 00:00: 00 Yes [id number] STOOL SOFTNER 1 tablet 2 TIMES DAILY 1 tablet 2 TIMES DAILY (route: oral) Med Classific ation: Gastroint estinal Therapy Agents gabapentin 100 mg capsule 2023-07 00:00: 00 07-06 23:59 :00 No [id number] PAIN 1 capsule BEDTIME 1 capsule BEDTIME (route: oral) Med Classific ation: Central Nervous System Agents methocarbam ol 500 mg tablet 2023-07 00:00: 00 07-06 23:59 :00 No [id number] MUSCLE RELAXER 1 tablet 3 TIMES DAILY 1 tablet 3 TIMES DAILY (route: oral) Med Classific ation: Locomotor System oxycodone 5 mg tablet 2023-07 00:00: 00 Yes [id number] PAIN 1 tablet EVERY 4 HOURS 1 tablet EVERY 4 HOURS (route: oral) Med Classific ation: Analgesic , Anti-infl ammatory or Antipyret ic Zepbound 2.5 mg/0.5 mL subcutaneou s pen injector 2023-07 00:00: 00 Yes [id number] WEIGHT LOSS 2.5 mg WEEKLY 2.5 mg [...] TO EVALUATE, OBSERVE / ASSESS, AND MONITOR, BUILDER OPERATOR TO OBSERVE AND MONITOR, PROVIDE SKILLED THERAPEUTIC INTERVENTION, ACTIVITY, EDUCATION, AND TRAINING TO ADDRESS; [code = AGENCY MAY PERFORM A RESUMPTION OF CARE VISIT FOLLOWING ANY HOSPITAL ADMISSION. PT TO EVALUATE, OBSERVE / ASSESS, AND MONITOR, BUILDER OPERATOR TO OBSERVE AND MONITOR, PROVIDE SKILLED THERAPEUTIC INTERVENTION, ACTIVITY, EDUCATION, AND TRAINING TO ADDRESS;] Future Scheduled Test SIT TO/FRO M STAND TRANSFERS (PT/BUILDER OPERATOR) [code = SIT TO/FROM STAND TRANSFERS (PT/BUILDER OPERATOR)] Future Scheduled Test PT/BUILDER OPERATOR TO PROVIDE GAIT TRAINING FOR IMPROVED MOBILITY AND /OR TO NORMALIZE GAIT PATTERN [code = PT/BUILDER OPERATOR TO PROVIDE GAIT TRAINING FOR IMPROVED MOBILITY AND /OR TO NORMALIZE GAIT PATTERN] Future Scheduled Test PT/BUILDER OPERATOR TO PROVIDE STAIR TRAINING [code = PT/BUILDER OPERATOR TO PROVIDE STAIR TRAINING] Future Scheduled Test THERAPEUTI C EXERCISES AND ESTABLISHING A HOME EXERCISE PROGRAM (PT/BUILDER OPERATOR) [code = THERAPEUTIC EXERCISES AND ESTABLISHING A HOME EXERCISE PROGRAM (PT/BUILDER OPERATOR)] Future Scheduled Test PT/BUILDER OPERATOR TO IDENTIFY FALL RISK FACTORS; EDUCATE THE PATIENT/CAREGIVER ON WAYS TO REDUCE FALL RISK FACTORS AND ESTABLISH HOME EXERCISE PROGRAM TO MINIMIZE FALL RISK. MAY TEACH THE PATIENT FLOOR RECOVERY WHEN CLINICALLY APPROPRIATE [code = PT/BUILDER OPERATOR TO IDENTIFY FALL RISK FACTORS; EDUCATE THE PATIENT/CAREGIVER ON WAYS TO REDUCE FALL RISK FACTORS AND ESTABLISH HOME EXERCISE PROGRAM TO MINIMIZE FALL RISK. MAY TEACH THE PATIENT FLOOR RECOVERY WHEN CLINICALLY APPROPRIATE] Future Scheduled Test PT/BUILDER OPERATOR TO TEACH KNEE REPLACEMENT SELF-MANAGEMENT [code = PT/BUILDER OPERATOR TO TEACH KNEE REPLACEMENT SELF-MANAGEMENT] Future Scheduled Test PT TO ASSE SS / BUILDER OPERATOR TO MONITOR FOR AND REPORT EARLY SIGNS OF ANTICOAGULANT TOXICITY TO THE PHYSICIAN AND/OR THE RN CLINICAL CERTIFIED PERSONAL TRAINER FOR PHYSICIAN NOTIFICATION AND TO PROVIDE PATIENT/CAREGIVER EDUCATION ON ANTICOAGULANT THERAPY [code = PT TO ASSESS / BUILDER OPERATOR TO MONITOR FOR AND REPORT EARLY SIGNS OF ANTICOAGULANT TOXICITY TO THE PHYSICIAN AND/OR THE RN CLINICAL CERTIFIED PERSONAL TRAINER FOR PHYSICIAN NOTIFICATION AND TO PROVIDE PATIENT/CAREGIVER EDUCATION ON ANTICOAGULANT THERAPY] Future Scheduled Test PT / BUILDER OPERATOR T O MONITOR AND EDUCATE ON OXYGEN SATURATION DURING ADLS/IADLS, NOTIFY PHYSICIAN AND/OR THE RN CLINICAL CERTIFIED PERSONAL TRAINER FOR PHYSICIAN NOTIFICATION AND IF O2 SATS BELOW PHYSICIAN ORDERED PARAMETERS AFTER 10 MIN OF REST [code = PT / BUILDER OPERATOR TO MONITOR AND EDUCATE ON OXYGEN SATURATION DURING ADLS/IADLS, NOTIFY PHYSICIAN AND/OR THE RN CLINICAL CERTIFIED PERSONAL TRAINER FOR PHYSICIAN NOTIFICATION AND IF O2 SATS BELOW PHYSICIAN ORDERED PARAMETERS AFTER 10 MIN OF REST] Future Scheduled Test PT / BUILDER OPERATOR M AY EDUCATE ON PAIN MANAGEMENT CLINICALLY INDICATED, INCLUDING NON-PHARMACOLOGICAL PAIN REDUCTION TECHNIQUES AND USE OF CRYOTHERAPY UP TO 20 MIN AT A TIME FOR PAIN MANAGEMENT 4 TIMES PER DAY TO RIGHT KNEE [code = PT / BUILDER OPERATOR MAY EDUCATE ON PAIN MANAGEMENT CLINICALLY INDICATED, INCLUDING NON-PHARMACOLOGICAL PAIN REDUCTION TECHNIQUES AND USE OF CRYOTHERAPY UP TO 20 MIN AT A TIME FOR PAIN MANAGEMENT 4 TIMES PER DAY TO RIGHT KNEE ] Future Scheduled Test PT / BUILDER OPERATOR T O OBSERVE WOUND/INCISION AND/OR INTACT DRESSING ON RIGHT KNEE AND REPORT EARLY SIGNS AND SYMPTOMS OF WOUND DETERIORATION, COMPLICATIONS, OR INFECTION TO PHYSICIAN AND/OR THE RN CLINICAL CERTIFIED PERSONAL TRAINER FOR PHYSICIAN NOTIFICATION. [code = PT / BUILDER OPERATOR TO OBSERVE WOUND/INCISION AND/OR INTACT DRESSING ON RIGHT KNEE AND REPORT EARLY SIGNS AND SYMPTOMS OF WOUND DETERIORATION, COMPLICATIONS, OR INFECTION TO PHYSICIAN AND/OR THE RN CLINICAL CERTIFIED PERSONAL TRAINER FOR PHYSICIAN NOTIFICATION.] Goal 2024-07-12 Patient Goal [...] Date/Time Encounter Type Admission Type Attending [facility] Care Facility Care Department Encounter ID Discharge Date Discharge Status Discharge Condition Discharge Reason Percent Goals Met 2024-06-30 00:00:00 2024-07-12 00:00:00 Outpatient NEW ADMISSION MEL GUERRERO [facility] [id number] 2024-07-12 00:00:00 DISCHARGE TO HOME OR SELF CARE INDEPENDEN T WITH USE OF ASSISTIVE DEVICE HH ONLY - OUT PATIENT 92.86
== END 2024-08-05 12:00 | disposition home or self-care (01) ==
PROVIDERS: Visit Provider Orthopaedic Surgery
DX: M25.562 Pain in left knee (principal)
CPT/HCPCS: 99024

== ENCOUNTER → 2024-08-05 11:32 | Outpatient (BNVA) | payer MEDICARE, SELFPAY | PROVIDERS: Visit Provider Orthopaedic Surgery | DX: M25.562 Pain in left knee (principal) | CPT/HCPCS: 99212 ==

== ENCOUNTER 2024-10-06 11:18 | Outpatient (AMB) | payer MEDICARE, SELFPAY ==
[2024-10-06 11:23] VITALS: BMI 36.6
--- NOTE | 2024-10-06 11:23 | MHC.OFFVIS ---
Vital Signs 10/06/24 11:23 Height 5 ft 10 in Weight 255 lb BMI 36.6 Intake Visit Reasons: PO: R TKA w/DR 06/28/24 Intake Note: Musa is a 68 year old male who presents with complaints of mild to moderate discomfort in his right knee after undergoing right total knee replacement surgery on 06/28/2024. He continues to go to formal physical therapy. He denies any fevers or chills. He continues to walk at the [facility] for exercise. Allergies hazelnut Allergy (Verified 10/06/24 11:24) Itching peach Allergy (Verified 10/06/24 11:24) Itching Medication List - Last Reconciled 10/06/24 by Db Wright MD acetaminophen 650 mg (2 x 325 mg) PO Q6H PRN 30 days amlodipine-benazepril 5-10 mg 1 cap PO DAILY amoxicillin 2,000 mg (4 x 500 mg) PO ONCE 1 day aspirin 325 mg PO BID 42 days celecoxib 200 mg PO DAILY PRN 30 days docusate sodium 100 mg PO BID 14 days gabapentin 100 mg PO BEDTIME methocarbamol 500 mg PO TID 7 days oxycodone 5 mg PO Q24H PRN tamsulosin 0.4 mg PO DAILY tirzepatide 2.5 mg subcut QWEEK walker Folding front wheeled walker walker Folding front wheeled walker [facility] Medical History Pilonidal cyst Skin cancer Arthritis Back pain Umbilical hernia Renal cyst Obesity, Class II, BMI 35-39.9 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, non-recurrent HTN (hypertension) BPH (benign prostatic hyperplasia) Arthritis of left knee Surgical History History of surgical removal of pilonidal cyst Hx of shoulder surgery History of total left knee replacement H/O colonoscopy Hx of rotator cuff surgery Hx of toe surgery Family History Other HTN (hypertension) Social History Household Members: Spouse Housing: House Are you a primary manager care management to a significant other at home: No Do you presently have visiting nurse or other home services: Yes Patient Tobacco Use Status: Never used Tobacco service: No Current occupational status: other Physical Exam Vital Signs: BMI result Body Mass Index 36.6 Const Other: Well-nourished well-developed very friendly male awake alert and oriented x3 in no acute distress Extrem Other: Bilateral lower extremity examination shows good capillary refill, no skin lesions noted, normal sensation light touch Right knee examination shows that the surgical incision is well healed, no erythema, full active extension and flexion to 115 degrees, his patella tracks well Assessment & Plan Assessment & Plan (1) Right knee pain: Code(s): M25.561 - Pain in right knee Category: Medical Plan Mr. Pollack continues to do well after undergoing right total knee replacement surgery on 06/28/2024. He will continue going to formal physical therapy for now. Will gradually transition to a home exercise program. He will contact me prior to his follow-up appointment in 3 months should any questions or concerns arise. Feel free to call me at any time should questions regarding his orthopedic management arise. I spent 22 minutes in reviewing the patient's records and imaging studies, seeing the patient and documenting in the medical record. Coding Level of Care Code Est Pt Level 3 (70667) Complex EM visit Add On G2211 Diagnoses Right knee pain M25.561
== END 2024-10-06 11:53 | disposition home or self-care (01) ==
LOC: HO.HOS 11:19
PROVIDERS: Visit Provider Orthopaedic Surgery
DX: M25.561 Pain in right knee (principal); Z47.89 Encounter for other orthopedic aftercare; Z96.651 Presence of right artificial knee joint
CPT/HCPCS: 99213; G2211

== ENCOUNTER → 2024-10-06 11:18 | Outpatient (BNVA) | payer MEDICARE, SELFPAY | PROVIDERS: Visit Provider Orthopaedic Surgery | DX: M25.561 Pain in right knee (principal) | CPT/HCPCS: 99212 ==

== ENCOUNTER 2024-10-18 11:30 | Day surgery (SDC) | payer MEDICARE, SELFPAY ==
[2024-10-14 11:35] VITALS: BMI 36.9
--- NOTE | 2024-10-15 09:43 | P.CONAN_ITS ---
Documented by User: Deborah Cavanaugh NP 10/15/24 09:44 HPI - Anesthesia Eval Consult details Narrative: 68yo M for Colonoscopy s/p TKA 06/2024 with spinal/block PMFSH Active Problems Active Problems: All Active Problems Right knee pain (Acute) Status post total right knee replacement (Acute) Pre-op evaluation (Acute) Left knee pain (Acute) Status post total left knee replacement (Acute ~09/01/23) Arthritis of right knee (Acute) Osteoarthritis of knees, bilateral (Acute) Chronic right SI joint pain (Acute) Past Medical History Medical History Skin cancer Back pain Umbilical hernia Renal cyst Obesity, Class II, BMI 35-39.9 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, non-recurrent HTN (hypertension) BPH (benign prostatic hyperplasia) Arthritis of left knee Family History Family History Other HTN (hypertension) Family history of problems with anesthesia: No Surgical History Surgical History History of total right knee replacement History of surgical removal of pilonidal cyst Hx of shoulder surgery History of total left knee replacement H/O colonoscopy Hx of rotator cuff surgery Hx of toe surgery History of Problems with Anesthesia: No Social History Social History Household Members: Spouse Housing: House Are you a primary elderly caregiver to a significant other at home: No Do you presently have visiting nurse or other home services: No Patient Tobacco Use Status: Never used Tobacco Use of substances other than those prescribed or required for medical reasons: No Have you been hit, kicked, punched, or otherwise hurt by someone within the past year? If so, by whom?: No Are you DNR?: No Advance Directives: No Advance Directives Information Provided: No Advance Directives on File: No Recently lost weight without trying: No How much weight loss: Not applicable Eating poorly because of decreased appetite: No Nutrition screen score: 0 Nutrition Risks: No Nutritional Risk Poor oral hygiene: Yes (implants) service: No Current occupational status: other Meds Allergies Allergy/AdvReac Type Severity Reaction Status Date / Time hazelnut Allergy Intermediate Itching Verified 10/18/24 12:09 peach Allergy Intermediate Itching Verified 10/18/24 12:09 Home Medications ?Medication ?Instructions ?Recorded ?Confirmed ?Last Taken ?Type tamsulosin 0.4 mg capsule 0.4 mg PO DAILY 07/17/23 10/14/24 06/28/24 History tirzepatide 2.5 mg/0.5 mL 2.5 mg subcut QWEEK 02/11/24 10/18/24 10/07/24 History subcutaneous pen injector amlodipine 5 mg-benazepril 10 mg 1 cap PO DAILY blood pressure 05/07/24 10/18/24 10/18/24 History capsule amoxicillin 500 mg tablet 2,000 mg PO ONCE 10/18/24 10/18/24 Unknown History Exam Height,Weight and Vital Signs: Height 5 ft 10 in Weight 116.573 kg Narrative Narrative: EKG 04/2024 NSR @ 69 Assessment and Plan Assessment Anesthesia Assessment: Chart Reviewed Final Anesthetic Review Family History of Problems with Anesthesia: No History of Problems with Anesthesia: No Documented by User: Charleen Whitt MD 10/18/24 13:13 [facility] Past Medical History Medical History Skin cancer Back pain Umbilical hernia Renal cyst Obesity, Class II, BMI 35-39.9 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, non-recurrent HTN (hypertension) BPH (benign prostatic hyperplasia) Arthritis of left knee Family History Family History Other HTN (hypertension) Surgical History Surgical History History of total right knee replacement History of surgical removal of pilonidal cyst Hx of shoulder surgery History of total left knee replacement H/O colonoscopy Hx of rotator cuff surgery Hx of toe surgery Social History Social History Household Members: Spouse Housing: House Are you a primary elderly caregiver to a significant other at home: No Do you presently have visiting nurse or other home services: No Patient Tobacco Use Status: Never used Tobacco Use of substances other than those prescribed or required for medical reasons: No Have you been hit, kicked, punched, or otherwise hurt by someone within the past year? If so, by whom?: No Are you DNR?: No Advance Directives: No Advance Directives Information Provided: No Advance Directives on File: No Recently lost weight without trying: No How much weight loss: Not applicable Eating poorly because of decreased appetite: No Nutrition screen score: 0 Nutrition Risks: No Nutritional Risk Poor oral hygiene: Yes (implants) service: No Current occupational status: other Meds Allergies Allergy/AdvReac Type Severity Reaction Status Date / Time hazelnut Allergy Intermediate Itching Verified 10/18/24 12:09 peach Allergy Intermediate Itching Verified 10/18/24 12:09 Home Medications ?Medication ?Instructions ?Recorded ?Confirmed ?Last Taken ?Type tamsulosin 0.4 mg capsule 0.4 mg PO DAILY 07/17/23 10/14/24 06/28/24 History tirzepatide 2.5 mg/0.5 mL 2.5 mg subcut QWEEK 02/11/24 10/18/24 10/07/24 History subcutaneous pen injector amlodipine 5 mg-benazepril 10 mg 1 cap PO DAILY blood pressure 05/07/24 10/18/24 10/18/24 History capsule amoxicillin 500 mg tablet 2,000 mg PO ONCE 10/18/24 10/18/24 Unknown History Exam Airway Mallampati Class: III TM Dist: >3cm Neck ROM: Full Loose/Missing/Broken Teeth: No Heart: RRR Lungs: CTA Assessment and Plan Assessment Anesthesia Assessment: Anesthesia Plan Discussed Final Anesthetic Review NPO: Yes ASA Class: II Final Preanesthetic Review: Meds/Allgs Chart Reviewed, Consent Obtained/Reviewed and Anes Risks/Benef Reviewed Patient Risk: Low Procedure Risk: Low Anesthetic Plan Anesthetic Plan: MAC: Disposition: Standard PACU
[2024-10-18 12:13] VITALS: BMI 34.8
[2024-10-18 12:18] VITALS: BP 111/64; PULSE 68; RESP 16; TEMP 36.4; O2SAT 98
--- NOTE | 2024-10-18 12:25 | MHC.SHP ---
Pre-Procedural Eval Section A - 24 Hr Update-Section A only Date of Service: 10/18/24 The patient is an INPATIENT: No The patient has been examined within 24 hours of the surgical procedure. The History & Physical has been completed within 30 days and I have reviewed it.: No Section B - Complete if H&P > 30 days Chief Complaint: Surveillance for colon polyps Relevant Family History (Specify if Yes): Yes Relevant Social History: None Present Medications: see Short Stay Collaborative assessment Medical History: Significant History (Arthritis of left knee Pilonidal cyst Skin cancer Arthritis Back pain Umbilical hernia Renal cyst Obesity, Class II, BMI 35-39.9 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, non-recurrent HTN (hypertension) BPH (benign prostatic hyperplasia)) History of Previous Operations: Relevant previous surgery/procedure and date(s) (Hx of left knee surgery (~09/01/23) H/O colonoscopy Hx of rotator cuff surgery Hx of toe surgery) Allergies: Allergies Allergy/AdvReac Type Severity Reaction Status Date / Time hazelnut Allergy Intermediate Itching Verified 10/18/24 12:09 peach Allergy Intermediate Itching Verified 10/18/24 12:09 Review of Systems Sugical H&P ROS: Negative: Constitution, Cardiovascular, Respiratory and Gastrointestinal Exam Surgical H&P Exam: Normal: Heart, Normal: Lungs, Normal: Extremities and Normal: Abdomen Plan Diagnosis/Plan: Unchanged I have reviewed the history and physical and performed a pertinent physical examination on my patient. No changes have occurred unless specified. Time Spent With Patient Time: Total time managing care of this patient today ____ minutes.
[2024-10-18] MEDS: Lactated Ringers 1,000 ML 100 ML IVCONT (12:41)
--- NOTE | 2024-10-18 13:24 | P.OPN-COLO_ITS ---
Colonoscopy Operative Note Operative Note Date of Service: 10/18/24 Narrative: COLONOSCOPY TILL CECUM WITH SNARE POLYPECTOMY Pre-op diagnosis: Surveillance for colon polyps. Post-op diagnosis:? Colon polyp, Diverticulosis, hemorrhoids Endoscopist:? Pedro Bhakta MD Anesthesia:?MAC Consent: Indications for the procedure and potential complications of bleeding, perforation, reaction to medications and missed diagnosis were discussed with the patient and informed consent was obtained. Instrument: Olympus CF H 190 L variable stiffness adult colonoscope Monitoring: Vital signs and clinical assessment, intermittent blood pressure monitoring, continuous EKG monitoring, Pulse oximetry and Carbon Dioxide monitoring were done throughout the procedure. Please see anesthesia flowsheet. Colon withdrawl time was 25 minutes. Procedure: The patient was placed in the left lateral decubitis position and pre-procedure medications were administered. After a digital rectal examination of the ano-rectum, the video colonoscope was inserted into the rectum and advanced through the colon to the cecum. The colonoscope was slowly withdrawn in a retrograde panoramic fashion and the colon mucosa was carefully examined including a retroflexed view of the rectum. Findings and interventions are described below. Procedure Difficulty: without difficulty Findings: Terminal Ileum: Not evaluated Cecum: Normal Ascending Colon: Moderate diverticulosis scattered throughout the entire colon Transverse Colon: Moderate diverticulosis scattered throughout the entire colon Descending Colon: Moderate diverticulosis scattered throughout the entire colon Sigmoid Colon: A 7-8 mm sessile polyp -removed with a hot snare. Moderate diverticulosis Rectum: Normal Ano-rectum: Moderate internal hemorrhoids Colon preparation: Excellent, after some irrigation. [place] Bowel Preparation Scale Right colon; 3 Transverse colon: 3 Left colon; 3 (0 = Unprepared colon segment with mucosa not seen due to solid stool that cannot be cleared. 1 = Portion of mucosa of the colon segment seen, but other areas of the colon segment not well seen due to staining, residual stool and/or opaque liquid. 2 = Minor amount of residual staining, small fragments of stool and/or opaque liquid, but mucosa of colon segment seen well. 3 = Entire mucosa of colon segment seen well with no residual staining, small fragments of stool or opaque liquid) Impression and Post Procedure Diagnosis: Colonoscopy Findings: One small polyp was removed Moderate diverticulosis seen in the entire colon Moderate hemorrhoids on retroflexed exam. Plan: I will send a letter with biopsy results. Repeat Colonoscopy in 3-5 years if polyps are adenomatous and due to a history of adenomatous colon polyps. Above findings were reviewed with the patient and relevant handouts were given and the discharge area.
[2024-10-18 14:02] VITALS: BP 116/61; PULSE 72; RESP 18; TEMP 36.6; O2SAT 100
[2024-10-18 14:17] VITALS: BP 119/65; PULSE 66; RESP 16; O2SAT 98
[2024-10-18 14:25] VITALS: BP 134/65; PULSE 71; RESP 16; TEMP 36.7; O2SAT 98
== END 2024-10-18 15:16 | disposition home or self-care (01) ==
PROVIDERS: PCP Internal Medicine; Visit Provider Internal Medicine Gastroenterology
PROC: 0DJD8ZZ Inspection of Lower Intestinal Tract, Via Natural or Artificial Opening Endoscopic (ICD-10-PCS; CPT 45378; principal; 2024-10-18 12:50)
DX: Z12.11 Encounter for screening for malignant neoplasm of colon (principal); K63.5 Polyp of colon; K57.30 Diverticulosis of large intestine without perforation or abscess without bleeding; K64.8 Other hemorrhoids; I10 Essential (primary) hypertension; N40.0 Benign prostatic hyperplasia without lower urinary tract symptoms; E66.9 Obesity, unspecified; Z68.36 Body mass index [BMI] 36.0-36.9, adult; Z79.82 Long term (current) use of aspirin; Z79.899 Other long term (current) drug therapy
CPT/HCPCS: 45385; 88305; J2003; J2704

== ENCOUNTER → 2024-10-18 11:30 | Outpatient (BNV) | payer MEDICARE, SELFPAY | PROVIDERS: PCP Internal Medicine; Visit Provider Internal Medicine Gastroenterology | DX: K57.90 Diverticulosis of intestine, part unspecified, without perforation or abscess without bleeding (principal); D12.5 Benign neoplasm of sigmoid colon; K64.8 Other hemorrhoids | CPT/HCPCS: 45385 ==

== ENCOUNTER 2025-01-12 09:41 | Outpatient (AMB) | payer MEDICARE, SELFPAY ==
--- NOTE | 2025-01-12 09:52 | MHC.OFFVIS ---
Intake Visit Reasons: Bilateral total knee arthroplasty , Left shoulder rotator cuff insufficiency Intake Note: Musa is a 69 year old male who presents with complaints of progressively worsening left shoulder pain and weakness. The patient states that he did undergo left shoulder rotator cuff repair surgery by Dr. Cheung approximately 10 years ago. He injured his left shoulder approximately 1 year ago while lifting a heavy object. Since that time his pain and weakness have gotten worse. He has failed the last 6 weeks of conservative treatment which has included Tylenol, anti-inflammatory medicines and physical therapy exercises. He reports weakness when lifting his left hand above shoulder height. The patient also reports mild intermittent discomfort in both of his knees after undergoing left total knee replacement surgery on 09/01/2023 as well as right total knee replacement surgery performed on 06/28/2024. He has returned to using the elliptical machine at the gym for exercise. Allergies hazelnut Allergy (Intermediate, Verified 01/12/25 09:55) Itching peach Allergy (Intermediate, Verified 01/12/25 09:55) Itching Medication List - Last Reconciled 01/12/25 by Db Wright MD acetaminophen 650 mg (2 x 325 mg) PO Q6H PRN 30 days amlodipine-benazepril 5-10 mg 1 cap PO DAILY amoxicillin 2,000 mg PO ONCE celecoxib 200 mg PO DAILY PRN 30 days oxycodone 5 mg PO Q24H PRN tamsulosin 0.4 mg PO DAILY tirzepatide 2.5 mg subcut QWEEK walker Folding front wheeled walker walker Folding front wheeled walker ON LICENSE OF [facility] Medical History Skin cancer Back pain Umbilical hernia Renal cyst Obesity, Class II, BMI 35-39.9 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, non-recurrent HTN (hypertension) BPH (benign prostatic hyperplasia) Arthritis of left knee Surgical History History of total right knee replacement History of surgical removal of pilonidal cyst Hx of shoulder surgery History of total left knee replacement H/O colonoscopy Hx of rotator cuff surgery Hx of toe surgery Family History Other HTN (hypertension) Social History Household Members: Spouse Housing: House Are you a primary customer care representative to a significant other at home: No Do you presently have visiting nurse or other home services: No Patient Tobacco Use Status: Never used Tobacco service: No Current occupational status: other Physical Exam Const Other: Well-nourished well-developed very friendly male awake alert and oriented x3 in no acute distress Extrem Other: Left shoulder examination shows decreased range of motion when compared to his right shoulder, 4/5 strength with supraspinatus testing, positive impingement signs, no instability Bilateral knee examination shows that the surgical incisions are well healed, no erythema, full active extension and flexion to 120 degrees, his patellae track well Results Reviewed Results Reviewed: X-rays of the patient's bilateral knees taken today show total knee arthroplasties in good position with no signs of loosening, no acute bony abnormalities Assessment & Plan Assessment & Plan (1) Rotator cuff insufficiency of left shoulder: Code(s): M25.312 - Other instability, left shoulder Category: Medical Plan Mr. Pollack presents with left shoulder pain and weakness due to impingement syndrome and possible recurrent rotator cuff tearing. Thus, I will send the patient for an MRI of his left shoulder for further evaluation. I will see him back once the MRI is completed to discuss the findings and treatment options. He will continue motion exercises in the meantime. He will contact me prior to the MRI should his symptoms worsen in any way. I spent 21 minutes in reviewing the patient's records and imaging studies, seeing the patient and documenting in the medical record. Orders: Orders XR knee RT 3V Today Z96.651 - Presence of right artificial knee joint XR knee LT 3V Today M25.562 - Pain in left knee MR shoulder LT wo con Today M25.312 - Other instability, left shoulder Coding Level of Care Code Est Pt Level 3 (70597) Complex EM visit Add On G2211 Diagnoses Rotator cuff insufficiency of left shoulder M25.312
--- OUTSIDE RECORDS SUMMARY | 2025-01-12 10:55 | XMS_ITS | Data Portability ---
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 [place], [address] , [facility] 10:39:48 General examinat ion of patient Completed 200802/28/2014 RECORDED 07/25/19 09 2:28PM BY YAYO PELAYO ON/MINERVA Stinson MD [address], [place], [address] , [facility] 10:39:48 Shoulder joint pain 781349160 Completed 201202/28/2014 RECORDED 08/18/19 13 8:46AM BY YAYO ROB ON/MINERVA Stinson MD [address], [place], [address] , [facility] 10:39:48 Adult health examinat ion Completed 201302/28/2014 RECORDED 09/23/19 14 8:53AM BY YAYO ROB ON/MINERVA Stinson MD [address], [place], [address] , [facility] 10:39:48 Chronic sinusiti s 22033548 Completed 201202/28/2014 RECORDED 08/18/19 13 8:46AM BY YAYO ROB ON/ADDEN DUM Waldemar Stinson MD [address], [place], [address] , [facility] 10:39:48 Low back pain 027363449 Active He uses narcotic s occasion ally but has been able to tolerate the pain w/o using them on a regular basis. Followed by [facility] in 2020. Not Available [facility] 3 12:29:01 Acute sinusiti s 67986245 Completed 11/26/2018 Alexia simmons MA null, [facility] [place] 9 13:06:52 Onychomy cosis 478655377 Active Not Available [facility] 3 12:29:01 Mass of shoulder region 098410467 Active Not Available [facility] 3 12:29:01 Benign prostati c hyperpla juan 339049275 Completed 201706/17/2023 Removal Reason: now with lower tract symptoms . Waldemar Stinson MD [address], [place], [address] , [facility] 3 19:42:05 Eczema 41085817 Active 2018 Not Available [facility] 3 12:29:01 Arthriti s of left sacroili ac joint 56267650054 45058 Active 2018 Followed by [facility]; injected April 2020 with some improvem ent. Not Available [facility] 3 12:29:01 Basal cell carcinom a of skin 649926533 Active 2019 Not Available [facility] 3 12:29:01 Pain of left wrist 57261623714 9102 Active [address] Barrios, hand surgery. Not Available [facility] 3 12:29:01 Arthriti s of right sacroili ac joint 77807314382 41168 Active 2020 Injected at [facility]. Not Available [facility] 3 12:29:01 Injury of great toe 497061020 Active 2020 possible dislocat ion; seen at [facility] and he may have surgery. Not Available [facility] 3 12:29:01 Osteoart hritis of knee 559871577 Active 2021 right knee; end-stag e. Seen at [facility]. Injected Not Available [facility] 3 12:29:01 Pain of left knee region 16570677194 4109 Active 2022 Unable to bear weight and swelling . US shows fluid but no cyst. Seen at [facility] and MRI ordered. 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 3 12:29:01 Morbid obesity 135190243 Active [address] [facility] [place] 3 10:04:17 Body mass index 30+ - obesity 242386552 Active 2023 Waldemar Stinson MD [address], [place], [address] , [facility] 09:26:33 Problem Notes None recorded. Procedures Surgical History Date Name Laterality Status Provider Name and Address Organization Details Recorded Time 06/28/20 24 Total knee arthroplasty completed Dania Cee [facility] [place] 06/30/2024 13:12:33 06/23/20 24 Advanced Care Planning completed Waldemar Stinson MD [address] [address], [place], [address], [facility] 06/23/2024 11:01:04 09/01/19 24 total knee replacement completed Dania Cee [facility] [place] 09/02/2023 10:02:37 07/07/20 23 local anesthetic nerve block in lower limb completed Dania Cee [facility] [place] 07/07/2023 09:50:15 10/17/19 23 injection into lumbar epidural space completed Dania Cee [facility] [place] 10/21/2022 09:42:15 09/04/19 23 injection completed Dania Cee [facility] [place] 09/06/2022 13:44:00 08/07/19 23 injection of sacroiliac joint completed Dania Cee [facility] [place] 08/07/2022 10:14:23 08/23/19 22 injection completed Sarah Lofton [facility] [place] 08/30/2021 15:16:51 04/20/20 21 arthrodesis of interphalangeal joint of toe completed Alexia hawk MA [facility] [place] 06/23/2024 10:12:44 04/11/20 21 injection of sacroiliac joint completed Sarah Lofton [facility] [place] 04/17/2021 11:13:45 03/20/20 20 radiofrequency ablation of medial branch of lumbar nerve using fluoroscopic guidance completed Elizabeth Willis [facility] [place] 03/22/2020 11:38:49 02/09/20 20 injection completed [address] [facility] [place] 02/09/2020 10:28:48 10/06/19 20 injection into facet joint of lumbar spine using fluoroscopic guidance completed Elizabeth Willis [facility] [place] 10/08/2019 09:26:08 08/16/19 20 injection of facet joint completed Elizabeth Willis [facility] [place] 08/16/2019 13:12:12 04/26/20 19 injection completed Elizabeth Willis [facility] [place] 04/27/2019 15:31:39 02/05/20 18 Colonoscopy completed aSrah Lofton [facility] [place] 02/04/2018 11:32:34 03/31/20 12 arthroplasty of left shoulder completed Alexia hawk MA [facility] [place] 06/23/2024 10:13:30 incision and drainage of pilonidal cyst completed Alexia hawk MA [facility] [place] 11/26/2018 13:07:58 Imaging Results None recorded. Procedure Notes None recorded. Medical Equipment None Reported. Allergies No known drug allergies Medications Name Sig Start Date Stop Date Status Note LastModified by Organization Details LastModified Time compound drug 10/08 completed Not Available Not Available Not Available celecoxib 200 mg capsule TAKE 1 CAPSULE BY MOUTH EVERY DAY NEEDED FOR MILD PAIN (PAIN SCALE 1-3) FOR 30 DAYS 12/22 completed Not Available Not Available Not Available amoxicill in 500 mg capsule TAKE [...] TIMES DAILY 2014 active due to [facility] refills on this script are not [...] Not Available ciproflox acin 500 mg tablet TAKE 1 TABLET BY MOUTH 1 HOUR BEFORE PROCEDUR E & TAKE 1 TABLET 10 HOURS AFTER 12/22 completed Not Available Not Available Not Available sulfameth oxazole 800 mg-trimet hoprim 160 mg tablet TAKE 1 TABLET BY MOUTH EVERY 12 HOURS FOR 7 DAYS 08/21 completed Not Available Not Available Not Available amoxicill in 500 mg tablet TAKE 4 TABLETS BY MOUTH ONCE FOR TAKE 4 TABS BY MOUTH 1 HOUR PRIOR TO DENTAL PPX FOR 1 DAY 12/22 completed Not Available Not Available Not Available [...] Not Available docusate sodium 100 mg capsule TAKE 1 CAPSULE BY MOUTH TWICE A DAY FOR 14 DAYS active Not Available Not Available No t Available codeine 10 mg-guaife nesin 100 mg/5 mL oral liquid Take 10 mL every 4 hours by oral route as needed. 11/26 completed Not Available Not Available Not Available mupirocin 2 % topical ointment APPLY TWICE DAILY TO SURGICAL SITE X 7-14 DAYS OR UNTIL FULLY HEALED 09/17 completed Not Available Not Available Not Available gabapenti n 100 mg capsule TAKE 1 CAPSULE BY MOUTH AT BEDTIME 12/22 completed Not Available Not Available Not Available [...] tablet TAKE 1 TABLET BY MOUTH EVERY 24 HOURS NEEDED FOR PAIN 12/22 completed Not Available Not Available Not Available Laxative (bisacody l) 5 mg tablet,de layed release THE DAY BEFORE COLONOSC OPY TAKE 2 TABLETS AT 12PM AND 2 TABLETS AT 5PM WITH PLENTY OF WATER 12/22 completed Not Available Not Available Not Available ciclopiro x 0.77 % topical cream PLEASE SEE ATTACHED FOR DETAILED DIRECTIO NS active Not Available Not Available No t Available codeine-g uaifenesi n oral syrup Q 4 HOURS PRN 07/19 completed RECORDED 07/25/19 09 2:28PM BY SILVANO GREGORY MD, MEDICATI ON AUTO-ARAVIND CTIVATIO N; Not [...] completed RECORDED 07/25/19 09 2:28PM BY SILVANO GREGORY MD, MEDICATI ON AUTO-ARAVIND CTIVATIO N; Not [...] and Address Organization Details Last Updated DateTime 5 179.07 cm 34.5 kg/m2 095285. 54 g 75 /min 99 % 99 % 98 [degF] 114 mm[Hg] 71 mm[Hg] Marion Marin MA [facility] [place] 5 10:38:36 Date Recorded Body height Body mass index (BMI) Body weight Heart rate Oxygen saturation Oxygen saturation in Arterial blood by Pulse oximetry Body temperature Systolic blood pressure Diastolic blood pressure Provider Name and Address Organization Details Last Updated DateTime 4 179.07 cm 36.5 kg/m2 863496. 83 g 73 /min 96 % 96 % 98 [degF] 126 mm[Hg] 75 mm[Hg] Marion Marin MA [facility] [place] 4 09:02:00 Date Recorded Body height Body mass index (BMI) Body weight Oxygen saturation Oxygen saturation in Arterial blood by Pulse oximetry Heart rate Body temperature Systolic blood pressure Diastolic blood pressure Provider Name and Address Organization Details Last Updated DateTime 4 179.07 cm 34.9 kg/m2 124754. 32 g 98 % 98 % 80 /min 98.1 [degF] 114 mm[Hg] 69 mm[Hg] Kristina Peng MA [facility] [place] 4 08:48:06 Date Recorded Body height Body mass index (BMI) Body weight Heart rate Oxygen saturation Oxygen saturation in Arterial blood by Pulse oximetry Body temperature Systolic blood pressure Diastolic blood pressure Provider Name and Address Organization Details Last Updated DateTime 4 179.07 cm 34.7 kg/m2 346702. 13 g 83 /min 95 % 95 % 97.8 [degF] 147 mm[Hg] 75 mm[Hg] Sis Walsh [facility] 4 14:47:05 Date Recorded Body height Body mass index (BMI) Body weight Heart rate Oxygen saturation Oxygen saturation in Arterial blood by Pulse oximetry Body temperature Systolic blood pressure Diastolic blood pressure Provider Name and Address Organization Details Last Updated DateTime 4 179.07 cm 33.8 kg/m2 126459. 58 g 77 /min 97 % 97 % 98.4 [degF] 120 mm[Hg] 67 mm[Hg] Alexia dunn MA [facility] [place] 10:17:54 Social History Question Answer Notes LastModified by Organizat ion Details LastModified Time Tobacco Smoking Status [facility] 03/13/2022 12:57:48 Do You Have An Advance Directive? Yes Adela Pollack Information not available 03/13/2022 Is Blood Transfusion Acceptable In An Emergency? Yes [id number] Information not available 05/23/2020 What Is Your Level Of Caffeine Consumption? Moderate 3 Cups A Day Information not available 06/23/2024 How Much Tobacco Do You Chew? None [id number] Information not available 05/23/2020 What Type Of Diet Are You Following? REGULAR [id number] Information not available 05/23/2020 Which Illicit Or Recreational Drugs Have You Used? None [id number] Information not available 05/23/2020 When Did You Quit Smoking? 18+yearssinc elastcigaret te Information not available 03/13/2022 Live Alone Or With Others? With Others Information not available 03/13/2022 Do You Take Precautions To Prevent Distracted Driving? Yes Information not available 05/15/2015 How Often Do You Need To Have Someone Help You When You Read Instructions, Pamphlets, Or Other Written Material From Your Doctor Or Pharmacy? Never [email or web address] Information not available 05/15/2015 Have You Served In The ? No [employer] Information not available 11/13/2016 Have You Or Anyone In Your Household Had Any Of The Following Symptoms In The Last 14 Days: Sore Throat, Cough, Chills, Body Aches For Unknown Reasons, Shortness Of Breath For Unknown Reasons, Loss Of Smell, Loss Of Taste, Fever At Or Greater Than 100 Degrees Fahrenheit? No [email or web address] Information not available 02/10/2020 Are You Or Anyone In Your Household A Health Care Provider Or Emergency Responder? No [employer] Information not available 02/10/2020 To The Best Of Your Knowledge Have You Been In Close Proximity To Any Individual Who Tested Positive For COVID-19? No [email or web address] Information not available 02/10/2020 Have You Recently Traveled To A COVID-19 High Risk Area Or Gathering In The Last 10 Days? No [email or web address] Information not available 08/08/2020 What Was The Date Of Your Most Recent Tobacco Screening? 06/23/2024 Information not available 06/23/2024 How Many Children Do You Have? 3 Sandor, Catia, Vladimir Information not available 06/23/2024 Do You Use Protection During Sex? No [id number] Information not available 05/23/2020 Do You Use [...] Start Smoking Tobacco? 14 Quit At 37 [id number] Information not available 05/23/2020 Are You Passively Exposed To Smoke? No Information not available 05/15/2015 How Much Tobacco Do You Smoke? No Information not available 03/13/2022 Do You Use Sunscreen Routinely? No [id number] Information not available 05/23/2020 How Many Years Have You Smoked Tobacco? 21 [id number] Information not available 05/23/2020 Sex: Unknown Functional Status Question Answer Note LastModified by Organizat ion Details LastModified Time Do you use any illicit or recreational drugs? No Information not available 06/23/2024 Do you or have you ever used any other forms of tobacco or nicotine? No Information not available 03/13/2022 What is your level of alcohol consumption? None drinking was a problem and he stopped when he was 36 years old. [id number] Information not available 05/23/2020 Do you or have you ever used smokeless tobacco? Never used smokeless tobacco [id number] Information not available 05/23/2020 Are you currently employed? Yes [id number] Information not available 05/23/2020 Are you able to walk? YESWOREST Information not available 03/13/2022 Are you able to care for yourself? Yes [id number] Information not available 05/23/2020 What is your occupation? [employer] of [employer] [id number] Information not available 05/23/2020 Do you or have you ever used e-cigarettes or vape? Never used electronic cigarettes Information not available 03/13/2022 What is your exercise level? Moderate 3 x week, gym, cardio, weights Information not available 06/23/2024 Mental Status None recorded. Family History Relationship Description Onset Age of this Age Resolved Age Notes LastModified by Organization Details LastModified Time Mother Hypertensive disorder 77 [email or web address] Not available 10/21 13:26:58 Paternal Grandfather Malignant tumor of colon [email or web address] Not available 11/12 10:23:13 Father Malignant neoplasm of urinary bladder 88 [email or web address] Not available 05/22 10:35:37 Father Aortic aneurysm repair ed 1999 [email or web address] Not available 03/13/2022 12:56:26 Brother Malignant neoplasm of lung 47 [email or web address] Not available 05/22 10:44:43 Medical History Condition Response Cancer Y Arthritis Y Hypertension Y Polyps Y Immunizations Vaccine Type Date Status Note Provider Nam e and Address Organization Details Recorded Time Tdap 5 completed Not Available [facility] 08/07/2019 02:21:44 Influenza, split virus, trivalent, preservative [address] [facility] [place] 06/23/2023 09:09:40 zoster recombinant [address] [facility] [place] 06/23/2023 09:09:40 Influenza, split virus, quadrivalent, preservative [address] [facility] [place] 06/23/2023 09:09:40 Influenza, split virus, quadrivalent, preservative 7 completed Alexia Cespedes MA null, [facility] [place] 06/23/2024 10:08:19 Influenza, split virus, quadrivalent, preservative 5 completed Dania Cee null, [facility] [place] 06/23/2023 09:09:40 Influenza, split virus, quadrivalent, preservative 6 completed Dania Cee null, [facility] [place] 06/23/2023 09:09:40 Influenza, split virus, quadrivalent, PF 4 completed Dania Cee null, [facility] [place] 06/23/2023 09:09:40 COVID-19, mRNA, LNP-S, PF, 30 mcg/0.3 mL dose 1 completed Dania Cee null, [facility] [place] 06/23/2023 09:09:40 Influenza, split virus, quadrivalent, preservative 8 completed Dania Cee null, [facility] [place] 06/23/2023 09:09:40 COVID-19, mRNA, LNP-S, PF, 30 mcg/0.3 mL dose 1 completed Dania Cee null, [facility] [place] 06/23/2023 09:09:40 COVID-19, mRNA, LNP-S, PF, 30 mcg/0.3 mL dose 1 completed Dania Cee null, [facility] [place] 06/23/2023 09:09:40 Influenza, split virus, trivalent, preservative 1 completed Dania Cee null, [facility] [place] 06/23/2023 09:09:40 COVID-19, mRNA, LNP-S, PF, 30 mcg/0.3 mL dose, nae-sucrose 2 completed Dania Cee null, [facility] [place] 06/23/2023 09:09:40 Influenza, MDCK, quadrivalent, PF 2 completed Dania Cee null, [facility] [place] 06/23/2023 09:09:40 COVID-19, mRNA, LNP-S, bivalent, PF, 30 mcg/0.3 mL dose 2 completed Dania Cee null, [facility] [place] 06/23/2023 09:09:40 Influenza, high-dose, quadrivalent, PF 3 completed Dania Cee null, [facility] [place] 06/23/2023 09:09:40 COVID-19, mRNA, LNP-S, PF, nae-sucrose, 30 mcg/0.3 mL 3 completed Bri Gao LPN null, [facility] [place] 2023 11:21:26 Pneumococcal conjugate PCV20, polysaccharide [id number] conjugate, adjuvant, PF 3 completed Kristina Peng MA null, [facility] [place] 04/19/2024 08:42:05 Influenza, split virus, quadrivalent, preservative 7 completed Alexia Cespedes MA null, [facility] [place] 06/23/2024 10:08:19 COVID-19, mRNA, LNP-S, PF, nae-sucrose, 30 mcg/0.3 mL 4 completed Kristina Peng MA null, [facility] [place] 04/19/2024 08:48:26 Influenza, high-dose, trivalent, PF 4 completed Sarah Lofton null, [facility] [place] 04/01/2024 15:24:59 Tdap 5 completed Not Available [facility] 12/22/2024 10:33:26 Pneumococcal conjugate PCV20, polysaccharide [id number] conjugate, adjuvant, PF 3 completed [facility] Available [facility] 12/22/2024 10:33:26 Influenza, split virus, trivalent, preservative 9 completed Dania Cee null, [facility] [place] 06/23/2023 09:09:40 Influenza, split virus, trivalent, preservative 1 completed Dania Cee [facility] [place] 06/23/2023 09:09:40 Past Encounters Encounter ID Performer Location Encounter Start Date Encounter Closed Date Diagnosis/Indication Diagnosis SNOMED-CT Code Diagnosis ICD10 Code Diagnosis Note [id number] [address] [place] [address] 06/04/2007 00:00:00 [id number] autoEComm erce [address] [facility] [place] [address] 07/11/2008 00:00:00 [id number] autoEComm erce [address] [facility] [place] [address] 07/27/2008 00:00:00 [id number] autoEComm erce [address] [facility] [place] [address] 10/24/2008 00:00:00 [id number] auto[employer]Comm erce [address] [facility] [place] [address] 05/12/2009 00:00:00 [id number] auto[facility]Comm erce [address] [facility] [place] [place] [address] 08/08/2009 00:00:00 [id number] [employer]ce [address] [facility] [place] [address] 08/13/2010 00:00:00 [id number] [employer] erce [address] [facility] [place] [address] 07/18/2011 00:00:00 [id number] autoEComm erce [address] [facility] [place] [address] 08/15/2011 00:00:00 [id number] [employer] erce [address] [facility] [place] [address] 08/18/2012 00:00:00 [id number] auto[employer]Comm erce [address] [facility] [place] [address] 08/25/2012 00:00:00 [id number] autoEComm erce [address] [facility] [place], [place] [address] 07/10/2013 00:00:00 [id number] auto[employer] erce [address] [facility] [place], [place] [address] 08/19/2013 00:00:00 [id number] auto[employer] erce [address] [facility] [place], [place] [address] 2 09/22/2013 00:00:00 [id number] autoEComm erce [address] [facility] [place], [place] [address] 12/20/2013 00:00:00 [id number] Waldemar Stinson MD Main Office [address] [facility] [address] [place] [address] 03/17/2014 10:42:32 03/17/2014 11:33:35 Low back pain 319814378 [id number] CAIT Andrews Main Office [address] [facility] [address] 08/09/2014 10:28:38 08/09/2014 11:04:19 Dysfunction of eustachian tube 85309548 sudafed, flonase. call in a week if not improving and can refer to ent [id number] CAIT Andrews Main Office [address] [address] [place] [address] 08/12/2014 14:13:50 08/12/2014 17:18:29 Acute sinusitis 20895121 continue flonase and sudafed [id number] Waldemar Stinson MD Main Office [address] [address] [place] [address] 11/10/2014 13:29:49 11/10/2014 14:14:40 Adult health examination 959545325 Administra tion of diphtheria, pertussis, and tetanus vaccine 356650985 Essential hypertension 44271020 Onychomycosis 233200490 [id number] Waldemar Stinson MD Main Office [address] [address] [place] [address] 05/15/2015 10:41:25 05/15/2015 11:30:37 Essential hypertension 42479386 I10 Nocturia 035903368 R35.1 Low back pain 057867547 M54.5 he has not seen a specialist in more than 5 years and would like to have another evaluation . [id number] Jessy Wong PA-C Main Office [address] [address] [place] [address] 08/22/2015 11:23:59 08/22/2015 12:07:31 Asthmatic bronchitis 741146163 J45.909 Start Z-pack as directed as symptoms are not improved in 4 weeks. Flonase spray qd and nasal saline qd. Rest and fluids. [id number] Waldemar Stinson MD Main Office [address] [address] [place] [address] 11/13/2015 10:03:41 11/13/2015 11:02:30 Essential hypertension 69629022 I10 Adult heal th examination 217198213 Z00.00 [facility] 829789603 R22.30 [id number] Nick Wong PA-C Main Office [address] [address] [place] [address] 10/08/2016 13:24:01 10/08/2016 14:34:56 Cough 66844209 R05 25 minute office visit with greater than 50% of the visit face-to-fa ce with the patient and/or family providing counseling and/or coordinati on of care. Pneumonia 229719521 J18. 9 pt states has never had good success c zpak in past - will give levaquin [id number] Waldemar Stinson MD Main Office [address] [address] [place] [address] 11/13/2016 10:13:43 11/13/2016 11:06:40 Adult health examination 439757890 Z00.00 UTD with cololnosco py and due next year. UTD with immunizati ons Nocturia 752540993 R35.1 Still has episodes but improved with meds. Body mass index 30+ - obesity 362418238 E66.9 Z68.35 Discussed weight loss and he will make an effort to get this down. [id number] Waldemar Stinson MD Main Office [address] [address] [place] [address] 11/17/2017 12:52:19 11/17/2017 14:05:05 Adult health examination 368090641 Z00.00 Due for a colonoscop y this year and he was given info. UTD with immunizati ons Essential hypertension 70134576 I10 currently under control w/o meds Screening for malignant neoplasm of colon 653081537 Z12.11 Screening for malignant neoplasm of lung 934518457 Z12.2 Body mass index 30+ - obesity 094631231 E66.01 Z68.37 Discussed weight loss and he will make an effort to get this down. Abdominal aortic aneurysm 879045560 I71.4 His father from a AAA Benign pro static hyperplasia 584366465 N40.0 continue tamsulosin [id number] Waldemar Stinson MD Main Office [address] [address] 08/18/2018 13:19:28 08/18/2018 14:23:45 Fever 412090789 R50.9 Acute sinusitis 10951678 J01.90 Cough 90868829 R05 [id number] Waldemar Stinson MD Main Office [address] [address] 11/26/2018 12:53:44 11/26/2018 14:12:42 Adult health examination 044799823 Z00.00 Due for a colonoscop y in 2022. Also due for shingles vaccine Essential hypertension 87498239 I10 currently under control w/o meds Low back pain 307729866 M54.5 he has not seen a specialist in more than 5 years and would like to have another evaluation . 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 [id number] Waldemar Stinson MD [address] [address] [place] [address] 11/30/2019 08:40:30 11/30/2019 09:56:43 Impotence of organic origin 302023275 N52.9 Benign pro static hyperplasia 995113554 N40.0 continue tamsulosin Eczema 62104544 L30.9 [id number] Waldemar Stinson MD Main Office [address] [place] [address] [place] [address] 02/10/2020 14:52:35 02/10/2020 16:17:38 Adult health examination 059101409 Z00.00 Due for a colonoscop y in 2022. Also due for shingles vaccine Body mass index 30+ - obesity 012483505 E66.01 Discussed weight loss and he will make an effort to get this down. Benign pro static hyperplasia 020160385 N40.0 continue tamsulosin > His PSA is a little elevated. We will recheck this in 6 months. [id number] Waldemar Stinson MD Main Office [address] [place] [address] [place] [address] 08/08/2020 15:26:58 08/09/2020 10:44:38 Essential hypertension 12733725 I10 currently under control w/o meds Benign pro static hyperplasia 974365142 N40.0 continue tamsulosin > His PSA remains elevated after a recheck 6 months later. We will refer him to urology for further evaluation . [id number] Waldemar Stinson MD [address] [address] [place] [address] 09/11/2020 09:41:13 09/11/2020 14:28:29 Prostate specific antigen above reference range 860891923 R97.20 W/u is in progress. A repeat PSA is going to be done before a future plan is put into place. Microscopic hematuria 19 8479947 R31.29 Seen by urology and scheduled for an office cystoscopy and a CT scan largely because his father had bladder cancer 15 years ago. [id number] Matthieu Singleton MD Main Office [address] [place] [address] [place] [address] 09/22/2020 14:56:42 09/22/2020 15:51:35 Elevated blood-pressure reading without diagnosis of hypertension 670736852 R03.0 Elevated blood pressure reading in the [...] blood pressure check. Pain of left wrist 50552 60451 32322 M25.532 There is a significan t swelling [...] also put a referral for hand surgeon. [id number] Waldemar Stinson MD Main Office [address] [facility] [address] [place] [address] 10/05/2020 11:32:08 10/05/2020 12:09:10 Essential hypertension 44218616 I10 He checks his BP at home and the systolic is generally >150. He has never been on meds. He will start meds and continue with lifestyle changes. Swelling o f joint of left wrist 3154419657 1861771 M25.432 This was possible gout vs pseudogout . [id number] Waldemar Stinson MD Main Office [address] [address] [place] [address] 11/15/2020 13:26:08 11/15/2020 14:09:46 Essential hypertension 96913241 I10 Started meds and tolerating well. He will get a new cuff since he continues to get high readings at home and the cuff is 10 years old. [id number] Waldemar Stinson MD [address] [address] [place] [address] 02/01/2021 12:59:31 02/01/2021 21:41:06 Pain in right foot 9173891748 74654 M79.671 Fracture of great toe 20 3218669 S92.404A [id number] Silvano Gregory MD [address] [address] [place] [address] 02/02/2021 09:13:08 02/02/2021 10:50:27 Closed fracture of first metatarsal bone 04546593 S92.311A Fall W19.XXXA [id number] Waldemar Stinson MD Main Office [address] [address] [place] [address] 03/08/2021 10:22:17 03/08/2021 11:14:39 Adult health examination 375751807 Z00.00 Due for a colonoscop y in 2022. UTD w/immuniza tions including shingles and COVID. Body mass index 40+ - severely obese 930151241 E66.01 Z68.41 Essential hypertension 45181432 I10 Good control and tolerating meds well. Continue current mgmt. Benign pro static hyperplasia 997679387 N40.0 Followed by urology. Injury of great toe 2827 66076 S99.922A He is followed by [facility] and is considerin g surgery. He has a f/u there in 6 weeks. [id number] Waldemar Stinson MD Main Office [address] [address] [place] [address] 08/21/2021 14:56:09 08/21/2021 15:51:53 Edema of lower extremity 804346576 R60.0 Cellulitis 020523212 L03 .90 [id number] Waldemar Stinson MD Main Office [address] [facility] [address] [place] [address] 09/26/2021 15:41:34 09/26/2021 16:12:27 Essential hypertension 11500202 I10 Good control and tolerating meds well. Continue current mgmt. Body mass index 40+ - severely obese 048145280 E66.01 Z68.41 Low back pain 031771111 M54.50 This is chronic and he is followed by [facility] where he gets regular steroid injections making his back pain manageable . [id number] Waldemra Stinson MD Main Office [address] [address] [place] [address] 03/13/2022 12:55:46 03/13/2022 13:57:39 Adult health examination 812577536 Z00.00 Due for a colonoscop y in 2022. UTD w/immuniza tions including shingles and COVID. Low back pain 051004618 M54.50 This is chronic and he is [...] and chiropract ic. Benign pro static hyperplasia 146963216 N40.0 Followed by urology. Recently had a reassuring MRI. Essential hypertension 95001165 I10 Good control and tolerating meds well. Continue current mgmt. Pain of ri ght knee region 2314514808 83217 M25.561 [id number] Waldemar Stinson MD Main Office [address] [facility] [address] [place] [place] [address] 09/17/2022 10:28:48 09/17/2022 11:01:02 Essential hypertension 42734374 I10 Good control and tolerating meds well. Continue current mgmt. Thoracic back pain 24894 8004 M54.6 This sounds muscular but will check pancreas at his request and will check urine for hematuria as a sign of kidney stones. [id number] Waldemar Stinson MD Main Office [address] [facility] [address] [place] [place] [address] 02/04/2023 11:05:33 02/04/2023 11:43:18 Pain of left knee joint 2617477327 47953 M25.562 Possible ruptured Bakers cyst vs ligament damage. [id number] Waldemar Stinson MD Main Office [address] [place], [place] [address] 06/18/2023 09:54:12 06/18/2023 11:00:32 Adult health examination 998074184 Z00.00 Due for a colonoscop y; last one done by Dr Pitts in 2018. UTD w/immuniza tions including shingles, flu, tetanus and COVID. He is due for a pneumonia vaccine and will get this at his pharmacy Essential hypertension 90185892 I10 Good control when he checks it at home and tolerating meds well. Continue current mgmt. Administra tion of pneumococcal vaccine 34994953 Z23 Advised to get this at his pharmacy. Screening for malignant neoplasm of colon 124184804 Z12.[address] Pitts in 2018 in a 5-year call back. Body mass index 40+ - severely obese 970583717 Z68.41 Referred to weight loss program. Benign pro static hyperplasia with outflow obstruction 450318496 N40.1 Followed by urology and just started on finasterid e since tamsulosin alone was no longer helping. Pain of bi lateral knee joints 9161634202 04489 M25.561 M25.562 Followed at [facility] and now considerin g surgery since injections and gel no longer helpful. Morbid obesity 061831519 E66.01 Has tried for years to lose weight by adjusting his eating habits and exercise but has been unsuccessf . [id number] Waldemar Stinson MD Main Office [address] [facility] [address] [facility], [place] [address] 2023 11:06:39 2023 11:48:18 Essential hypertension 01652934 I10 Running a little high. Will stop his lisinopril and start him on amlodipine -benazepri l Low back pain 435968950 M54.50 This is chronic and he is followed by [facility] where he gets regular steroid injections making his back pain manageable . He has been losing weight and this has had a positive affect on his back pain. Benign pro static hyperplasia with outflow obstruction 773020577 N40.1 Followed by urology and will be getting a prostate MRI. [id number] Waldemar Stinson MD Main Office [address] [facility] [address] [place] [address] 01/20/2024 08:54:10 01/20/2024 09:34:36 Essential hypertension 83555909 I10 Doing well on current med. Continue. He has lost 36 lbs in the last 7 months. This is the lowest he has been in 10 years. Body mass index 30+ - obesity 169451607 E66.01 Z68.35 Followed by weight loss specialist and currently taking mounjaro once weekly. Has lost 36 lbs in 7 months. Benign pro static hyperplasia with outflow obstruction 940145324 N40.1 Followed by urology. MRI did not show any suspicious lesions. [id number] Waldemar Stinson MD Main Office [address] [facility] [address] [place] [address] 04/19/2024 08:33:40 04/19/2024 09:04:32 Pre-surgery evaluation 464664616 Z01.818 No medical contraindi cations to proposed procedure. Tim Perioperat rose marie Cardiac Risk was calculated and the risk for perioperat rose marie GA is 0.2%. May proceed to surgery as planned.-e kg: NSR, no ST changes Essential hypertension 02393410 I10 in office BP 114/69-sta ble readings at home-c/w current regimen Osteoarthr itis of knee 659705653 M17.9 pre-operat rose marie medical clearance for right total knee replacemen t on 05/17/24by Dr. David Canas of [facility] (NPI#: [id number] ). Under spinal + block for anesthesia . [id number] Waldemar Stinson MD Main Office [address] [facility] [address] [place] [address] 05/26/2024 14:30:29 05/26/2024 14:56:52 Pneumonia 147790009 J18.9 x9 days of symptoms>c ough, chest congestion , fatigue, chills, tightness with deep inhalation -denies of any fever, n/v/d, dizziness, chest pain-has tried multiple OTC medication s with no relief-on PE; crackles were appreciate d in the right lower lobe-will provide z-pack and augmentin course-dis cussed to continue with conservati ve measuremen ts [id number] Waldemar Stinson MD Main Office [address] [facility] [address] [place] [address] 06/23/2024 09:52:42 06/23/2024 10:48:21 Adult health examination 060105629 Z00.00 Due for a colonoscop y; last one done by Dr Pitts in 2018. Scheduled in [place] 10/04/24.UT D w/immuniza tions including shingles, pneumonia, flu, tetanus and COVID. Benign pro static hyperplasia with outflow obstruction 267378455 N40.1 Followed by urology. MRI did not show any suspicious lesions. Nocturia 340317661 R35.1 Still has episodes but improved with meds. Essential hypertension 12754545 I10 Doing well on current med. Continue. He has lost 45 lbs in the last year on mounjaro which he is tolerating w/o SE's. This is the lowest he has been in 11 years. His goal is 215. Body mass index 30+ - obesity 997644427 Z68.30 E66.9 Followed by weight loss specialist and currently taking mounjaro once weekly. Has lost 45 lbs in 1 year. Having no SE's with meds. His goal is 215 lbs. Advance care planning 71 9908937 Z71.89 Discussed and forms given [id number] Waldemar Stinson MD Main Office [address] [facility] [address] [place] [address] 12/22/2024 10:30:24 12/22/2024 11:05:17 Essential hypertension 47068165 I10 Doing well on current med. Continue. He has lost 50 lbs in the last year on mounjaro which he is tolerating w/o SE's. This is the lowest he has been in 11 years. His goal is 215. Benign pro static hyperplasia with outflow obstruction 093352628 N40.1 Followed by urology. MRI did not show any suspicious lesions and his bx were negative. Body mass index 30+ - obesity 538103668 Z68.34 Followed by weight loss specialist and currently taking mounjaro once weekly. Has lost 50 lbs since starting. Having no SE's with meds. His goal is 215 lbs. Health Concerns Section Related Observation LastModified by Organization Detai ls LastModified Time None Recorded Concern Status LastModified by Organization Details LastModified Time None Recorded Advance Directives Directive Y: Adela Jaki Payers Insurance Date Sequence Insurance Name Policy Number Policy Campo Covered Member ID Campo Member ID Guarantor Name 12/31/2024 2 [place] [id number] Silvano Pollack [id number] Silvano Pollack 12/22/2024 1 MEDIC[place] [employer] Silvano Pollack [id number] Silvano Pollack 05/26/2024 1 [facility] [place] [place] Silvano Pollack [id number] Silvano Pollack 05/26/2024 2 [place] [facility] [place] [place] [id number] Silvano Pollack [id number] Silvano Pollack Notes Date Note Type Note Provider Name and Address Organization Details Recorded Time 01/20/2024 text/html Hypertension F/UReported bypatient.Associated Symptoms:no dizziness; no lightheadedness; no chest pain; no shortness of breath; no palpitations; no edema; no calf pain with exertion Lifestyle:regular exercise (started walking again since his left knee replacement 3 months ago.); limiting/avoiding salt Medications:taking medications as directed; no side effects from medicationNotes:He has lost 36 lbs in the last 7 months. He continues to see a enterprise records analyst and is using weight-loss injections which have been helping and which he is tolerating well. He is currently taking mounjaro. He had a prostate MRI which was read as enlarged but no suspicious lesions. Waldemar Stinson MD [address] [address], [place], [address], [facility] 01/20/2024 09:41:00 04/19/2024 text/html Silvano is a 68yr o ld M with PMHx of osteoarthritis, HTN presents for pre-operative medical clearance for right total knee replacement on 05/17/[address] David Canas of [facility] (NPI#: [id number]). Under spinal + block for anesthesia. Denies [...] palpitations, fever, chills, and nausea/vomiting. Jody abrams, [facility] ([place], [place]) 04/26/2024 15:11:55 05/26/2024 text/html Upper Respirator y SymptomsReported bypatient.Location:[facility] Quality:productive cough;congested Severity:mild Duration:1.5 week Context:no sick contacts Associated Symptoms:shortness of breath;fatigue Silvano is a 68yr old M who presents for congestion, cough, sob, and chills x9 days. Reports home covid test is negative. Has both chest and nasal congestion. Denies any other symptoms, OTC alker seltzer cold & flu, mucinex, day & night quill [facility] [address] [facility] [address], [place], [address], [facility] 05/26/2024 14:58:35 06/23/2024 text/html Generic HPI TemplateReported [...] is scheduled for October 04, 2024 in [place].Still working and may be retiring sometime in the next couple of years. Waldemar Stinson MD [address], [address], [facility] 06/23/2024 11:01:51 12/22/2024 text/html Hypertension F/UReported bypatient.Associated Symptoms:no dizziness; no lightheadedness; no chest pain; no shortness of breath; no palpitations; no edema; no calf pain with exertion Lifestyle:regular exercise (started walking again since his left knee replacement 3 months ago.); limiting/avoiding salt Medications:taking medications as directed; no side effects from medicationNotes:He has lost 50 lbs since starting the mounjaro. He continues to see a enterprise records analyst and is using weight-loss injections (mounjaro) which have been helping and which he is tolerating well. His weight loss has recently plateaued but he continues with the med. He had a prostate MRI which was read as enlarged but no suspicious lesions. He recently had prostate bx and no cancer was identified. Waldemar Stinson MD [address], [address], [facility] 12/22/2024 12:28:56
== END 2025-01-12 10:13 | disposition home or self-care (01) ==
LOC: HO.HOS 09:42
PROVIDERS: Visit Provider Orthopaedic Surgery
DX: M25.312 Other instability, left shoulder (principal)
CPT/HCPCS: 99213; G2211

== ENCOUNTER → 2025-01-12 09:43 | Outpatient (BNV) | payer MEDICARE, SELFPAY | PROVIDERS: Visit Provider Radiology Diagnostic Radiology | DX: Z96.653 Presence of artificial knee joint, bilateral (principal) | CPT/HCPCS: 73562 ==

== ENCOUNTER 2025-01-12 09:46 | Outpatient (REF) | payer MEDICARE, SELFPAY ==
--- NOTE | ~2025-01-12 | XR_ITS ---
CLINICAL HISTORY: Z96.651 - Presence of right artificial knee joint Radiographs of the right knee, 3 views Comparison: CR - XR RIGHT KNEE - 06/16/23 15:54 EST Findings: There is no fracture or dislocation. Intact total knee arthroplasty. Suprapatellar enthesophyte. Cortical thickening of the posterior aspect of the proximal tibial diaphysis. Bone mineralization is normal versus decreased. No knee joint effusion. Soft tissue swelling. Soft tissue calcifications. Impression: No fracture or joint effusion. Intact total knee arthroplasty. This document has been electronically signed by: Lori Doshi MD on 01/25/2025 15:30:32
--- NOTE | ~2025-01-12 | XR_ITS ---
CLINICAL HISTORY: M25.562 - Pain in left knee Radiographs of the left knee, 3 views Comparison: None available Findings: There is no fracture or dislocation. Intact total knee arthroplasty. Infrapatellar heterotopic ossification measuring 1.2 cm. Patellar enthesophytes. Cortical thickening of the posterior aspect of the proximal tibial diaphysis. Bone mineralization is normal versus decreased. No knee joint effusion. No soft tissue swelling. Vascular and soft tissue calcifications. Impression: No acute findings. Intact total knee arthroplasty. This document has been electronically signed by: Lori Doshi MD on 01/25/2025 15:09:07
== END 2025-01-12 09:47 | disposition home or self-care (01) ==
LOC: HO.HOSX 09:46
PROVIDERS: Visit Provider Orthopaedic Surgery
DX: M25.312 Other instability, left shoulder (principal); Z96.651 Presence of right artificial knee joint
CPT/HCPCS: 73562; 99212

== ENCOUNTER 2025-01-23 09:17 | Outpatient (REF) | payer MEDICARE, SELFPAY ==
--- NOTE | ~2025-01-23 | MR_ITS ---
CLINICAL HISTORY: M25.312 - Other instability, left shoulder MR left shoulder Comparison: None Findings: No fracture or dislocation of the osseous structures. There is a prominent amount of cystic change and edema in the humeral head. Acromioclavicular joint space narrowing, osteophytosis and fluid within the joint space, degenerative. Trace joint fluid. No significant fluid within the subacromial/subdeltoid bursa. There is postsurgical change of the rotator cuff likely indicating prior repair. There is increased signal within the supraspinatus tendon with partial tear. No retraction or muscular atrophy. There is increased signal within the infraspinatus tendon with partial tear. There is severe muscular atrophy. There is increased signal within the subscapularis tendon without tear or muscular atrophy. Teres minor is unremarkable. There is increased signal and irregularity in the labrum which is most prominent at the superior aspect. There is near-complete glenohumeral chondromalacia with large osteophytosis. The bicipital labral anchor is intact. The long head of the biceps tendon is intact. There is increased fluid within the tendon sheath. The coracoacromial and coracohumeral ligaments are intact. Cutaneous and subcutaneous tissues are normal. The quadrilateral space is unremarkable. Impression: Status post prior rotator cuff repair. Supraspinatus, infraspinatus and subscapularis tendinopathy. Partial tear of supraspinatus and infraspinatus. Severe atrophy of the infraspinatus muscle. Tear of the labrum. Glenohumeral chondromalacia with large osteophytosis, degenerative. There is also degenerative change of the acromioclavicular joint. Biceps tenosynovitis. Trace joint fluid. This document has been electronically signed by: Lori Doshi MD on 01/24/2025 22:06:32
--- OUTSIDE RECORDS SUMMARY | 2025-01-23 09:20 | XMS_ITS | Data Portability ---
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 nerve block in lower limb completed Dania Cee [facility] 07/07/2023 09:50:15 10/17/19 23 injection into lumbar epidural space completed Dania Cee [facility] 10/21/2022 09:42:15 09/04/19 23 injection completed Dania Cee [facility] 09/06/2022 13:44:00 08/07/19 23 injection of sacroiliac joint completed Dania Cee [facility] 08/07/2022 10:14:23 08/23/19 22 injection completed Sarah Lofton [facility] 08/30/2021 15:16:51 04/20/20 21 arthrodesis of interphalangeal joint of toe completed Alexia hawk MA [facility] 06/23/2024 10:12:44 04/11/20 21 injection of sacroiliac joint completed Sarah Lofton [facility] 04/17/2021 11:13:45 03/20/20 20 radiofrequency ablation of medial branch of lumbar nerve using fluoroscopic guidance completed Elizabeth Willis [facility] 03/22/2020 11:38:49 02/09/20 20 injection completed Elizabeth Willis [facility] 02/09/2020 10:28:48 10/06/19 20 injection into facet joint of lumbar spine using fluoroscopic guidance completed Elizabeth Willis [facility] 10/08/2019 09:26:08 08/16/19 20 injection of facet joint completed Elizabeth Willis [facility] 08/16/2019 13:12:12 04/26/20 19 injection completed Elizabeth Willis [facility] 04/27/2019 15:31:39 02/05/20 18 Colonoscopy completed Sarah Lofton [facility] 02/04/2018 11:32:34 03/31/20 12 arthroplasty of left shoulder completed Alexia hawk MA [facility] 06/23/2024 10:13:30 incision and drainage of pilonidal cyst completed Alexia hawk MA [facility] 11/26/2018 13:07:58 Imaging Results None recorded. Procedure [...] TIMES DAILY 2014 active due to new [facility] refills on this script are not covered [...] blood by Pulse oximetry Body temperature Systolic And Diastolic Provider Name and Address Organization Details Last Updated DateTime 5 179.07 cm 34.5 kg/m2 800846. 54 g 75 /min 99 % 99 % 98 [degF] 114/71 mm[Hg] Marion Marin [facility] 5 10:38:36 Date Recorded Body height Body mass index (BMI) Body weight Heart rate Oxygen saturation Oxygen saturation in Arterial blood by Pulse oximetry Body temperature Systolic And Diastolic Provider Name and Address Organization Details Last Updated DateTime 4 179.07 cm 36.5 kg/m2 325113. 83 g 73 /min 96 % 96 % 98 [degF] 126/75 mm[Hg] Marion Marin [facility] 4 09:02:00 Date Recorded Body height Body mass index (BMI) Body weight Oxygen saturation Oxygen saturation in Arterial blood by Pulse oximetry Heart rate Body temperature Systolic And Diastolic Provider Name and Address Organization Details Last Updated DateTime 4 179.07 cm 34.9 kg/m2 047751. 32 g 98 % 98 % 80 /min 98.1 [degF] 114/69 mm[Hg] Kristina Peng [facility] 4 08:48:06 Date Recorded Body height Body mass index (BMI) Body weight Heart rate Oxygen saturation Oxygen saturation in Arterial blood by Pulse oximetry Body temperature Systolic And Diastolic Provider Name and Address Organization Details Last Updated DateTime 4 179.07 cm 34.7 kg/m2 204219. 13 g 83 /min 95 % 95 % 97.8 [degF] 147/75 mm[Hg] Sis Walsh [facility] 4 14:47:05 Date Recorded Body height Body mass index (BMI) Body weight Heart rate Oxygen saturation Oxygen saturation in Arterial blood by Pulse oximetry Body temperature Systolic And Diastolic Provider Name and Address Organization Details Last Updated DateTime 4 179.07 cm 33.8 kg/m2 376774. 58 g 77 /min 97 % 97 % 98.4 [degF] 120/67 mm[Hg] Alexia dunn [facility] 10:17:54 Social History Question Answer Notes LastModified by Organizat ion Details LastModified Time Tobacco Smoking Status [facility]oker [facility] 03/13/2022 12:57:48 Do You Have An Advance Directive? Yes Adela Pollack Information not available 03/13/2022 Is Blood Transfusion Acceptable In An Emergency? Yes [id number] Information not available 05/23/2020 What Is Your Level Of Caffeine Consumption? Moderate 3 Cups A Day Information not available 06/23/2024 How Much Tobacco Do You Chew? None [id number] Information not available 05/23/2020 What Type Of Diet Are You Following? REGULAR [id number] Information not available 05/23/2020 Which Illicit Or Recreational Drugs Have You Used? None [id number] Information not available 05/23/2020 When Did You [...] Have You Served In The ? No [employer] Information not available 11/13/2016 Have You Or Anyone In Your Household Had Any Of The Following Symptoms In The Last 14 Days: Sore Throat, Cough, Chills, Body Aches For Unknown Reasons, Shortness Of Breath For Unknown Reasons, Loss Of Smell, Loss Of Taste, Fever At Or Greater Than 100 Degrees Fahrenheit? No [employer] Information not available 02/10/2020 Are You Or Anyone In Your Household A Health Care Provider Or Emergency Responder? No [employer] Information not available 02/10/2020 To The Best Of Your Knowledge Have You Been In Close Proximity To Any Individual Who Tested Positive For COVID-19? No [employer] Information not available 02/10/2020 Have You Recently Traveled To A COVID-19 High Risk Area Or Gathering In The Last 10 Days? No [email or web address] Information not available 08/08/2020 What Was The Date Of Your Most Recent Tobacco Screening? 06/23/2024 Information not available 06/23/2024 How Many Children Do You Have? 3 Catia Patten Zachary Information not available 06/23/2024 Do You Use Protection During Sex? No [id number] Information not available 05/23/2020 Do You Use [...] Start Smoking Tobacco? 14 Quit At 37 [id number] Information not available 05/23/2020 Are You Passively Exposed To Smoke? No Information not available 05/15/2015 How Much Tobacco Do You Smoke? No Information not available 03/13/2022 Do You Use Sunscreen Routinely? No [id number] Information not available 05/23/2020 How Many Years Have You Smoked Tobacco? 21 [id number] Information not available 05/23/2020 Sex: Unknown Functional [...] stopped when he was 36 years old. [id number] Information not available 05/23/2020 Do you or have you ever used smokeless tobacco? Never used smokeless tobacco [id number] Information not available 05/23/2020 Are you currently employed? Yes [id number] Information not available 05/23/2020 Are you able to walk? YESWOREST Information not available 03/13/2022 Are you able to care for yourself? 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 [email or web address] [id number] Information not available 05/23/2020 Do you or [...] Recorded Time Tdap 5 completed Not Available [facility] 08/07/2019 02:21:44 Influenza, split virus, trivalent, preservative 9 completed Dania abrams [facility] 06/23/2023 09:09:40 zoster recombinant 9 completed Dania abrams [facility] 06/23/2023 09:09:40 Influenza, split virus, quadrivalent, preservative 0 completed Dania abrams [facility] 06/23/2023 09:09:40 Influenza, split virus, quadrivalent, preservative 7 completed GRACE Adams [facility] 06/23/2024 10:08:19 Influenza, split virus, quadrivalent, preservative 5 completed Dania Cee null, [facility] 06/23/2023 09:09:40 Influenza, split virus, quadrivalent, preservative 6 completed Dania Cee null, [facility] 06/23/2023 09:09:40 Influenza, split virus, quadrivalent, PF 4 completed Dania Cee null, [facility] 06/23/2023 09:09:40 COVID-19, mRNA, LNP-S, PF, 30 mcg/0.3 mL dose 1 completed Dania Cee null, [facility] 06/23/2023 09:09:40 Influenza, split virus, quadrivalent, preservative 8 completed Dania Cee null, [facility] 06/23/2023 09:09:40 COVID-19, mRNA, LNP-S, PF, 30 mcg/0.3 mL dose 1 completed Dania Cee null, [facility] 06/23/2023 09:09:40 COVID-19, mRNA, LNP-S, PF, 30 mcg/0.3 mL dose 1 completed Dania Cee null, [facility] 06/23/2023 09:09:40 Influenza, split virus, trivalent, preservative 1 completed Dania Cee null, [facility] 06/23/2023 09:09:40 COVID-19, mRNA, LNP-S, PF, 30 mcg/0.3 mL dose, nae-sucrose 2 completed Dania Cee null, [facility] 06/23/2023 09:09:40 Influenza, MDCK, quadrivalent, PF 2 completed Dania Cee null, [facility] 06/23/2023 09:09:40 COVID-19, mRNA, LNP-S, bivalent, PF, 30 mcg/0.3 mL dose 2 completed Dania Cee null, [facility] 06/23/2023 09:09:40 Influenza, high-dose, quadrivalent, PF 3 completed Dania Cee null, [facility] 06/23/2023 09:09:40 COVID-19, mRNA, LNP-S, PF, nae-sucrose, 30 mcg/0.3 mL 3 completed Bri Gao LPN null, [facility] 2023 11:21:26 Pneumococcal conjugate PCV20, polysaccharide [id number] conjugate, adjuvant, PF 3 completed Kristina Peng MA null, [facility] 04/19/2024 08:42:05 Influenza, split virus, quadrivalent, preservative 7 completed Alexia Cespedes MA null, [facility] 06/23/2024 10:08:19 COVID-19, mRNA, LNP-S, PF, nae-sucrose, 30 mcg/0.3 mL 4 completed Kristina Peng MA null, [facility] 04/19/2024 08:48:26 Influenza, high-dose, trivalent, PF 4 completed Sarah Lofton null, [facility] 04/01/2024 15:24:59 Tdap 5 completed Not Available [facility] 12/22/2024 10:33:26 Pneumococcal conjugate PCV20, polysaccharide [id number] conjugate, adjuvant, PF 3 completed Not Available [facility] 12/22/2024 10:33:26 Influenza, split virus, trivalent, preservative 9 completed Dania abrams, [facility] 06/23/2023 09:09:40 Influenza, split virus, trivalent, preservative 1 completed Dania abrams [facility] 06/23/2023 09:09:40 Past Encounters Encounter ID Performer Location Encounter Start Date Encounter Closed Date Diagnosis/Indication Diagnosis SNOMED-CT Code Diagnosis ICD10 Code Diagnosis Note [id number] auto[facility]Comm erce [address] [facility] [address] [place] [address] 06/04/2007 00:00:00 [id number] autoEComm erce [address] [facility] [place] [address] 07/11/2008 00:00:00 [id number] autoEComm erce [address] [facility] [place] [address] 07/27/2008 00:00:00 [id number] autoEComm erce [address] [facility] [place] [address] 10/24/2008 00:00:00 [id number] autoEComm erce [address] [facility] [place] [address] 05/12/2009 00:00:00 [id number] autoEComm erce [address] [facility] [place] [address] 08/08/2009 00:00:00 [id number] autoEComm erce [address] [facility] [place] [address] 08/13/2010 00:00:00 [id number] autoEComm erce [address] [facility] [place] [address] 07/18/2011 00:00:00 [id number] autoEComm erce [address] [facility] [place] [address] 08/15/2011 00:00:00 [id number] autoEComm erce [address] [facility] [place] [address] 08/18/2012 00:00:00 [id number] autoEComm erce [address] [facility] [place] [address] 08/25/2012 00:00:00 [id number] autoEComm erce [address] [facility] [place] [address] 07/10/2013 00:00:00 [id number] autoEComm erce [address] [facility] [place], [place] [address] 08/19/2013 00:00:00 [id number] autoEComm erce [address] [facility] [place], [place] [address] 09/22/2013 00:00:00 [id number] autoEComm erce [address] [facility] [place], [place] [address] 12/20/2013 00:00:00 [id number] Waldemar Stinson MD Main Office [address] [facility] [address] [place], [place] [address] 03/17/2014 10:42:32 03/17/2014 11:33:35 Low back pain 972750729 [id number] CAIT Andrews Main Office [address] [facility] [address] [place], [place] [address] 08/09/2014 10:28:38 08/09/2014 11:04:19 Dysfunction of eustachian tube 77017006 sudafed, flonase. call in a week if not improving and can refer to ent [id number] CAIT Andrews Main Office [address] [facility] [address] [place], [place] [address] 08/12/2014 14:13:50 08/12/2014 17:18:29 Acute sinusitis 78947569 continue flonase and sudafed [id number] Waldemar Stinson MD Main Office [address] [facility] [address] [place] [address] 11/10/2014 13:29:49 11/10/2014 14:14:40 Adult health examination 257314046 Administra tion of diphtheria, pertussis, and tetanus vaccine 781803481 Essential hypertension 39307382 Onychomycosis 792850484 [id number] Waldemar Stinson MD Main Office [address] [facility] [address] [place] [address] 05/15/2015 10:41:25 05/15/2015 11:30:37 Essential hypertension 81060139 I10 Nocturia 680556073 R35.1 Low back pain 690580375 M54.5 he has not seen a specialist in more than 5 years and would like to have another evaluation . [id number] Jessy Wong PA-C Main Office [address] [facility] [address] [place] [address] 08/22/2015 11:23:59 08/22/2015 12:07:31 Asthmatic bronchitis 632227842 J45.909 Start Z-pack as directed as symptoms are not improved in 4 weeks. Flonase spray qd and nasal saline qd. Rest and fluids. [id number] Waldemar Stinson MD Main Office [address] [facility] [address] [place] [address] 11/13/2015 10:03:41 11/13/2015 11:02:30 Essential hypertension 86596631 I10 Adult heal th examination 180154324 Z00.00 Mass of [facility] 945643725 R22.30 [id number] Nick Wong PA-C Main Office [address] [address] [place] [address] 10/08/2016 13:24:01 10/08/2016 14:34:56 Cough 39683401 R05 25 minute office visit with greater than 50% of the visit face-to-fa ce with the patient and/or family providing counseling and/or coordinati on of care. Pneumonia 423741124 J18. 9 pt states has never had good success c orapak in past - will give levaquin [id number] Waldemar Stinson MD Main Office [address] [facility] [address] [place] [address] 11/13/2016 10:13:43 11/13/2016 11:06:40 Adult health examination 139001055 Z00.00 UTD with cololnosco py and due next year. UTD with immunizati ons Nocturia 132880133 R35.1 Still has episodes but improved with meds. Body mass index 30+ - obesity 061534102 E66.9 Z68.35 Discussed weight loss and he will make an effort to get this down. [id number] Waldemar Stinson MD Main Office [address] [facility] [address] [place] [address] 11/17/2017 12:52:19 11/17/2017 14:05:05 Adult health examination 071637579 Z00.00 Due for a colonoscop y this year and he was given info. UTD with immunizati ons Essential hypertension 74494399 I10 currently under control w/o meds Screening for malignant neoplasm of colon 295276943 Z12.11 Screening for malignant neoplasm of lung 850538084 Z12.2 Body mass index 30+ - obesity 811633173 E66.01 Z68.37 Discussed weight loss and he will make an effort to get this down. Abdominal aortic aneurysm 909925386 I71.4 His father from a AAA Benign pro static hyperplasia 145092028 N40.0 continue tamsulosin [id number] Waldemar Stinson MD Main Office [address] [facility] [address] [place] [address] 08/18/2018 13:19:28 08/18/2018 14:23:45 Fever 177428852 R50.9 Acute sinusitis 88534838 J01.90 Cough 23009328 R05 [id number] Waldemar Stinson MD Main Office [address] [place] [address] 11/26/2018 12:53:44 11/26/2018 14:12:42 Adult health examination 868242386 Z00.00 Due for a colonoscop y in 2022. Also due for shingles vaccine Essential hypertension 18352311 I10 currently under control w/o meds Low back pain 290250613 M54.5 he has not seen a specialist in more than 5 years and would like to have another evaluation . 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 [id number] Waldemar Stinson MD [facility] [address] [facility] [address] [place] [address] 11/30/2019 08:40:30 11/30/2019 09:56:43 Impotence of organic origin 687520634 N52.9 Benign pro static hyperplasia 156538365 N40.0 continue tamsulosin Eczema 95554511 L30.9 [id number] Waldemar Stinson MD Main Office [address] [address] [place] [address] 02/10/2020 14:52:35 02/10/2020 16:17:38 Adult health examination 562116315 Z00.00 Due for a colonoscop y in 2022. Also due for shingles vaccine Body mass index 30+ - obesity 305980191 E66.01 Discussed weight loss and he will make an effort to get this down. Benign pro static hyperplasia 994447579 N40.0 continue tamsulosin > His PSA is a little elevated. We will recheck this in 6 months. [id number] Waldemar Stinson MD Main Office [facility] [address] [place] [address] 08/08/2020 15:26:58 08/09/2020 10:44:38 Essential hypertension 58682702 I10 currently under control w/o meds Benign pro static hyperplasia 754056309 N40.0 continue tamsulosin > His PSA remains elevated after a recheck 6 months later. We will refer him to urology for further evaluation . [id number] Waldemar Stinson MD [address] [address] [place] [address] 09/11/2020 09:41:13 09/11/2020 14:28:29 Prostate specific antigen above reference range 357961603 R97.20 W/u is in progress. A repeat PSA is going to be done before a future plan is put into place. Microscopic hematuria 19 4178189 R31.29 Seen by urology and scheduled for an office cystoscopy and a CT scan largely because his father had bladder cancer 15 years ago. [id number] Matthieu Singleton MD Main Office [facility] [address] [place] [address] 09/22/2020 14:56:42 09/22/2020 15:51:35 Elevated blood-pressure reading without diagnosis of hypertension 123677421 R03.0 Elevated blood pressure reading in the [...] blood pressure check. Pain of left wrist 54089 43805 96445 M25.532 There is a significan t swelling [...] also put a referral for hand surgeon. [id number] Waldemar Stinson MD Main Office [address] [address] [place] [address] 10/05/2020 11:32:08 10/05/2020 12:09:10 Essential hypertension 64300284 I10 He checks his BP at home and the systolic is generally >150. He has never been on meds. He will start meds and continue with lifestyle changes. Swelling o f joint of left wrist 1132225461 7012728 M25.432 This was possible gout vs pseudogout . [id number] Waldemar Stinson MD Main Office [address] [address] [place] [address] 11/15/2020 13:26:08 11/15/2020 14:09:46 Essential hypertension 02335479 I10 Started meds and tolerating well. He will get a new cuff since he continues to get high readings at home and the cuff is 10 years old. [id number] Waldemar Stinson MD [facility] [address] [address] [place] [address] 02/01/2021 12:59:31 02/01/2021 21:41:06 Pain in right foot 6286443793 88172 M79.671 Fracture of great toe 20 5416379 S92.404A [id number] Silvano [place] MD [facility] [address] [place] [address] [place] [address] 02/02/2021 09:13:08 02/02/2021 10:50:27 Closed fracture of first metatarsal bone 13155476 S92.311A Fall W19.XXXA [id number] Waldemar Stinson MD Main Office [address] [address] [place] [address] 03/08/2021 10:22:17 03/08/2021 11:14:39 Adult health examination 076974714 Z00.00 Due for a colonoscop y in 2022. UTD w/immuniza tions including shingles and COVID. Body mass index 40+ - severely obese 777922303 E66.01 Z68.41 Essential hypertension 81424547 I10 Good control and tolerating meds well. Continue current mgmt. Benign pro static hyperplasia [id number] N40.0 Followed by urology. Injury of great toe 2827 66060 S99.922A He is followed by [facility] and is considerin g surgery. He has a f/u there in 6 weeks. [id number] Waldemar Stinson MD Main Office [address] [address] [place] [address] 08/21/2021 14:56:09 08/21/2021 15:51:53 Edema of lower extremity [id number] R60.0 Cellulitis 992761146 L03 .90 [id number] Waldemar Stinson MD Main Office [address] [address] [place] [address] 09/26/2021 15:41:34 09/26/2021 16:12:27 Essential hypertension 75519657 I10 Good control and tolerating meds well. Continue current mgmt. Body mass index 40+ - severely obese 704978827 E66.01 Z68.41 Low back pain 169643211 M54.50 This is chronic and he is followed by [facility] where he gets regular steroid injections making his back pain manageable . [id number] Waldemar Stinson MD Main Office [address] [facility] [address] [place] [address] 03/13/2022 12:55:46 03/13/2022 13:57:39 Adult health examination 972570089 Z00.00 Due for a colonoscop y in 2022. UTD w/immuniza tions including shingles and COVID. Low back pain 250505071 M54.50 This is chronic and he is followed by [facility] where he gets regular steroid injections making his back pain manageable . He would like to try a med different from ibuprofen. I will send in a script for celebrex. If that doesn't work then will try a muscle relaxant. Also advised that he look into acupunctur e and chiropract ic. Benign pro static hyperplasia 893180627 N40.0 Followed by urology. Recently had a reassuring MRI. Essential hypertension 18477234 I10 Good control and tolerating meds well. Continue current mgmt. Pain of ri ght knee region 4038897377 70732 M25.561 [id number] Waldemar Stinson MD Main Office [address] [facility] [address] [place] [address] 09/17/2022 10:28:48 09/17/2022 11:01:02 Essential hypertension 84926614 I10 Good control and tolerating meds well. Continue current mgmt. Thoracic back pain 68941 8004 M54.6 This sounds muscular but will check pancreas at his request and will check urine for hematuria as a sign of kidney stones. [id number] Waldemar Stinsno MD Main Office [address] [facility] [address] [place] [address] 02/04/2023 11:05:33 02/04/2023 11:43:18 Pain of left knee joint 5063524720 97339 M25.562 Possible ruptured Bakers cyst vs ligament damage. [id number] Waldemar Stinson MD Main Office [address] [place] [address] 06/18/2023 09:54:12 06/18/2023 11:00:32 Adult health examination 510185710 Z00.00 Due for a colonoscop y; last one done by Dr Pitts in 2018. UTD w/immuniza tions including shingles, flu, tetanus and COVID. He is due for a pneumonia vaccine and will get this at his pharmacy Essential hypertension 77908311 I10 Good control when he checks it at home and tolerating meds well. Continue current mgmt. Administra tion of pneumococcal vaccine 91943151 Z23 Advised to get this at his pharmacy. Screening for malignant neoplasm of colon 094768586 Z12.[address] Pitts in 2018 in a 5-year call back. Body mass index 40+ - severely obese 711507775 Z68.41 Referred to weight loss program. Benign pro static hyperplasia with outflow obstruction 751605963 N40.1 Followed by urology and just started on finasterid e since tamsulosin alone was no longer helping. Pain of bi lateral knee joints 1254334051 13695 M25.561 M25.562 Followed at [facility] and now considerin g surgery since injections and gel no longer helpful. Morbid obesity 570695038 E66.01 Has tried for years to lose weight by adjusting his eating habits and exercise but has been unsuccessf ul. [id number] Waldemar Stinson MD Main Office [address] [place] [address] 2023 11:06:39 2023 11:48:18 Essential hypertension 83540175 I10 Running a little high. Will stop his lisinopril and start him on amlodipine -benazepri l Low back pain 795546982 M54.50 This is chronic and he is followed by [facility] where he gets regular steroid injections making his back pain manageable . He has been losing weight and this has had a positive affect on his back pain. Benign pro static hyperplasia with outflow obstruction 495223933 N40.1 Followed by urology and will be getting a prostate MRI. [id number] Waldemar Stinson MD Main Office [address] [place] [address] 01/20/2024 08:54:10 01/20/2024 09:34:36 Essential hypertension 94768040 I10 Doing well on current med. Continue. He has lost 36 lbs in the last 7 months. This is the lowest he has been in 10 years. Body mass index 30+ - obesity 852227155 E66.01 Z68.35 Followed by weight loss specialist and currently taking mounjaro once weekly. Has lost 36 lbs in 7 months. Benign pro static hyperplasia with outflow obstruction 843856015 N40.1 Followed by urology. MRI did not show any suspicious lesions. [id number] Waldemar Stinson MD Main Office [address] [place] [address] 04/19/2024 08:33:40 04/19/2024 09:04:32 Pre-surgery evaluation 418855857 Z01.818 No medical contraindi cations to proposed procedure. Tim Perioperat rose marie Cardiac Risk was calculated and the risk for perioperat rose marie [place] is 0.2%. May proceed to surgery as planned.-e kg: NSR, no ST changes Essential hypertension 70888321 I10 in office BP 114/69-sta ble readings at home-c/w current regimen Osteoarthr itis of knee 288009913 M17.9 pre-operat rose marie medical clearance for right total knee replacemen t on 05/17/24by Dr. David Canas of [facility] (NPI#: [id number] ). Under spinal + block for anesthesia . [id number] Waldemar Stinson MD Main Office [address] [place] [address] 05/26/2024 14:30:29 05/26/2024 14:56:52 Pneumonia 535105025 J18.9 x9 days of symptoms>c ough, chest congestion , fatigue, chills, tightness with deep inhalation -denies of any fever, n/v/d, dizziness, chest pain-has tried multiple OTC medication s with no relief-on PE; crackles were appreciate d in the right lower lobe-will provide z-pack and augmentin course-dis cussed to continue with conservati ve measuremen ts [id number] Waldemar Stinson MD Main Office [address] [facility] [address] [place] [address] 06/23/2024 09:52:42 06/23/2024 10:48:21 Adult health examination 225732622 Z00.00 Due for a colonoscop y; last one done by Dr Pitts in 2018. Scheduled in [place] 10/04/24.UT D w/immuniza tions including shingles, pneumonia, flu, tetanus and COVID. Benign pro static hyperplasia with outflow obstruction 626605974 N40.1 Followed by urology. MRI did not show any suspicious lesions. Nocturia 816517431 R35.1 Still has episodes but improved with meds. Essential hypertension 60768062 I10 Doing well on current med. Continue. He has lost 45 lbs in the last year on mounjaro which he is tolerating w/o SE's. This is the lowest he has been in 11 years. His goal is 215. Body mass index 30+ - obesity 329448042 Z68.30 E66.9 Followed by weight loss specialist and currently taking mounjaro once weekly. Has lost 45 lbs in 1 year. Having no SE's with meds. His goal is 215 lbs. Advance care planning 71 3044729 Z71.89 Discussed and forms given [id number] Waldemar Stinson MD Main Office [address] [facility] [address] [place] [address] 12/22/2024 10:30:24 12/22/2024 11:05:17 Essential hypertension 30796769 I10 Doing well on current med. Continue. He has lost 50 lbs in the last year on mounjaro which he is tolerating w/o SE's. This is the lowest he has been in 11 years. His goal is 215. Benign pro static hyperplasia with outflow obstruction 392092157 N40.1 Followed by urology. MRI did not show any suspicious lesions and his bx were negative. Body mass index 30+ - obesity 925219494 Z68.34 Followed by weight loss specialist and currently taking mounjaro once weekly. Has lost 50 lbs since starting. Having no SE's with meds. His goal is 215 lbs. Health Concerns Section Related Observation LastModified by Organization Detai ls LastModified Time None Recorded Concern Status LastModified by Organization Details LastModified Time None Recorded Advance Directives Directive Y: Adela Pollack Payers Insurance Date Sequence Insurance Name Policy Number Policy Campo Covered Member ID Campo Member ID Guarantor Name 12/31/2024 2 [place] [id number] Silvano Lamar Jaki [id number] Silvano Lamar Jaki 12/22/2024 1 [place] [employer] Silvano Newton Jaki [id number] Silvano Lamar Jaki 05/26/2024 1 [facility] Silvano Newton Jaki [id number] Silvano Lamar Jaki 05/26/2024 2 [place] [facility] [id number] Silvano Newton Jaki [id number] Silvano Newton Jaki Notes Date Note Type [...] 7 months. 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 He is currently taking mounjaro. He had a prostate MRI which was read as enlarged but no suspicious lesions. Waldemar Stinson MD [address] [address], [place], [address], [facility] 01/20/2024 09:41:00 04/19/2024 text/html Silvano is a 68yr o ld M with PMHx of osteoarthritis, HTN presents for pre-operative medical clearance for right total knee replacement on 05/17/[address] David Canas of [facility] (NPI#: [id number]). Under spinal + block for anesthesia. Denies [...] palpitations, fever, chills, and nausea/vomiting. Jody abrams, [facility] [place] 04/26/2024 15:11:55 05/26/2024 text/html Upper Respirator y SymptomsReported bypatient.Location:[facility] Quality:productive cough;congested Severity:mild Duration:1.5 week Context:no sick contacts Associated Symptoms:shortness of breath;fatigue Silvano is a 68yr old M who presents for congestion, cough, sob, and chills x9 days. Reports home covid test is negative. Has both chest and nasal congestion. Denies any other symptoms, OTC alker seltzer cold & flu, mucinex, day & night quill GUR[facility]ET [facility] [address] [facility] [address], [place], [address], [facility] [place] 05/26/2024 14:58:35 06/23/2024 text/html Generic HPI TemplateReported [...] is scheduled for October 04, 2024 in [place].Still working and may be retiring sometime in the next couple of years. Waldemar Stinson MD [address], [address], [facility] 06/23/2024 11:01:51 12/22/2024 text/html Hypertension F/UReported bypatient.Associated [...] the mounjaro. 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 His weight loss has recently plateaued but he continues with the med. He had a prostate MRI which was read as enlarged but no suspicious lesions. He recently had prostate bx and no cancer was identified. Waldemar Stinson MD [address], [address], [facility] 12/22/2024 12:28:56
== END 2025-01-23 09:18 | disposition home or self-care (01) ==
LOC: HO.MRI 09:17
PROVIDERS: PCP Internal Medicine; Visit Provider Orthopaedic Surgery
DX: M25.312 Other instability, left shoulder (principal)
CPT/HCPCS: 73221

== ENCOUNTER → 2025-01-23 09:22 | Outpatient (BNV) | payer MEDICARE, SELFPAY | PROVIDERS: PCP Internal Medicine; Visit Provider Radiology Diagnostic Radiology | DX: M19.012 Primary osteoarthritis, left shoulder (principal); M67.814 Other specified disorders of tendon, left shoulder; M62.512 Muscle wasting and atrophy, not elsewhere classified, left shoulder; M94.212 Chondromalacia, left shoulder | CPT/HCPCS: 73221 ==

== ENCOUNTER 2025-01-26 09:59 | Outpatient (AMB) | payer MEDICARE, SELFPAY ==
--- NOTE | 2025-01-26 10:07 | MHC.OFFVIS ---
Vital Signs 01/26/25 10:08 Height 5 ft 10 in Weight 242 lb BMI 34.7 Intake Visit Reasons: OV-Lt shoulder MRI review Intake Note: Musa is a 69 year old male who presents today for a MRI review of the left shoulder. He describes his left shoulder pain as sharp in nature. He reports intermittent? stiffness? in his left shoulder as well. He did undergo left shoulder rotator cuff repair surgery by Dr. Cheung in 2009. He has tried physical therapy exercises which aggravated his pain. He has also tried Tylenol and Celebrex which gave him mild relief. He has been modifying his gym work out as much as possible. He denies any fevers or chills. Allergies hazelnut Allergy (Intermediate, Verified 01/26/25 10:10) Itching peach Allergy (Intermediate, Verified 01/26/25 10:10) Itching Medication List - Last Reconciled 01/26/25 by Db Wright MD acetaminophen 650 mg (2 x 325 mg) PO Q6H PRN 30 days amlodipine-benazepril 5-10 mg 1 cap PO DAILY amoxicillin 2,000 mg PO ONCE celecoxib 200 mg PO DAILY PRN 30 days oxycodone 5 mg PO Q24H PRN tamsulosin 0.4 mg PO DAILY tirzepatide 2.5 mg subcut QWEEK walker Folding front wheeled walker walker Folding front wheeled walker [facility] Medical History Skin cancer Back pain Umbilical hernia Renal cyst Obesity, Class II, BMI 35-39.9 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, non-recurrent HTN (hypertension) BPH (benign prostatic hyperplasia) Arthritis of left knee Surgical History History of total right knee replacement History of surgical removal of pilonidal cyst Hx of shoulder surgery History of total left knee replacement H/O colonoscopy Hx of rotator cuff surgery Hx of toe surgery Family History Other HTN (hypertension) Social History Household Members: Spouse Housing: House Are you a primary critical care clinical nurse specialist to a significant other at home: No Do you presently have visiting nurse or other home services: No Patient Tobacco Use Status: Never used Tobacco service: No Current occupational status: other Physical Exam Vital Signs: BMI result Body Mass Index 34.7 Const Other: Well-nourished well-developed very friendly male awake alert and oriented x3 in no acute distress Extrem Other: Left shoulder examination shows decreased range of motion when compared to his right shoulder, 4+ out of 5 strength with supraspinatus testing, positive impingement signs, tenderness over his acromioclavicular joint, no instability Results Reviewed Results Reviewed: MRI of the patient's left shoulder shows severe acromioclavicular joint narrowing, a type 3 acromion mild to moderate glenohumeral joint degenerative changes, signal change within the supraspinatus tendon most likely due to adhesive capsulitis Assessment & Plan Assessment & Plan (1) Impingement syndrome of left shoulder: Code(s): M75.42 - Impingement syndrome of left shoulder Category: Medical Plan Mr. Pollack presents with progressively worsening left shoulder pain and stiffness due to impingement syndrome, acromioclavicular joint arthritis and adhesive capsulitis. I had a lengthy discussion with the patient regarding the treatment options. At this point he has failed continued non operative treatments. The risks and benefits of left shoulder arthroscopic surgery were discussed at length with the patient. The patient is considering undergoing surgery later this year. He will contact my office to pick a surgery date if he chooses to do so. Surgery will involve left shoulder arthroscopic distal clavicle excision, left shoulder arthroscopic acromioplasty, left shoulder arthroscopic capsular release and left shoulder manipulation under anesthesia. He will continue with his range of motion exercises in the meantime. I spent 20 minutes in reviewing the patient's records and imaging studies, seeing the patient and documenting in the medical record. Coding Level of Care Code Est Pt Level 3 (76918) Complex EM visit Add On G2211 Diagnoses Impingement syndrome of left shoulder M75.42
[2025-01-26 10:08] VITALS: BMI 34.7
--- OUTSIDE RECORDS SUMMARY | 2025-01-26 10:42 | XMS_ITS | Data Portability ---
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 11:01:04 09/01/19 24 total knee replacement completed Dania Cee [facility] 09/02/2023 10:02:37 07/07/20 23 local anesthetic nerve block in lower limb completed Dania Cee [facility] 07/07/2023 09:50:15 10/17/19 23 injection into lumbar epidural space completed Dania Cee [facility] 10/21/2022 09:42:15 09/04/19 23 injection completed Dania Cee [facility] 09/06/2022 13:44:00 08/07/19 23 injection of sacroiliac joint completed Dania Cee [facility] 08/07/2022 10:14:23 08/23/19 22 injection completed Sarah Lofton [facility] 08/30/2021 15:16:51 04/20/20 21 arthrodesis of interphalangeal joint of toe completed Alexia hawk MA [facility] 06/23/2024 10:12:44 04/11/20 21 injection of sacroiliac joint completed Sarah Lofton [facility] 04/17/2021 11:13:45 03/20/20 20 radiofrequency ablation of medial branch of lumbar nerve using fluoroscopic guidance completed Elizabeth Willis [facility] 03/22/2020 11:38:49 02/09/20 20 injection completed Elizabeth Willis [facility] 02/09/2020 10:28:48 10/06/19 20 injection into facet joint of lumbar spine using fluoroscopic guidance completed Elizabeth Willis [facility] 10/08/2019 09:26:08 08/16/19 20 injection of facet joint completed Elizabeth Willis [facility] 08/16/2019 13:12:12 04/26/20 19 injection completed Elizabeth Willis [facility] 04/27/2019 15:31:39 02/05/20 18 Colonoscopy completed Sarah Lofton [facility] 02/04/2018 11:32:34 03/31/20 12 arthroplasty of left shoulder completed Alexia hawk MA [facility] 06/23/2024 10:13:30 incision and drainage of pilonidal cyst completed Alexia hawk MA [facility] 11/26/2018 13:07:58 Imaging Results None recorded. [...] TIMES DAILY 2014 active due to new [facility] refills on this script are [...] Updated DateTime 5 179.07 cm 34.5 kg/m2 957080. 54 g 75 /min 99 % 99 % 98 [degF] 114/71 mm[Hg] Marion Marin MA [facility] 5 10:38:36 Date Recorded Body height Body mass index (BMI) Body weight Heart rate Oxygen saturation Oxygen saturation in Arterial blood by Pulse oximetry Body temperature Systolic And Diastolic Provider Name and Address Organization Details Last Updated DateTime 4 179.07 cm 36.5 kg/m2 080595. 83 g 73 /min 96 % 96 % 98 [degF] 126/75 mm[Hg] Marion Marin MA [facility] 4 09:02:00 Date Recorded Body height Body mass index (BMI) Body weight Oxygen saturation Oxygen saturation in Arterial blood by Pulse oximetry Heart rate Body temperature Systolic And Diastolic Provider Name and Address Organization Details Last Updated DateTime 4 179.07 cm 34.9 kg/m2 623506. 32 g 98 % 98 % 80 /min 98.1 [degF] 114/69 mm[Hg] Kristina Peng MA [facility] 4 08:48:06 Date Recorded Body height Body mass index (BMI) Body weight Heart rate Oxygen saturation Oxygen saturation in Arterial blood by Pulse oximetry Body temperature Systolic And Diastolic Provider Name and Address Organization Details Last Updated DateTime 4 179.07 cm 34.7 kg/m2 998919. 13 g 83 /min 95 % 95 % 97.8 [degF] 147/75 mm[Hg] Sis Walsh [facility] 4 14:47:05 Date Recorded Body height Body mass index (BMI) Body weight Heart rate Oxygen saturation Oxygen saturation in Arterial blood by Pulse oximetry Body temperature Systolic And Diastolic Provider Name and Address Organization Details Last Updated DateTime 4 179.07 cm 33.8 kg/m2 387012. 58 g 77 /min 97 % 97 % 98.4 [degF] 120/67 mm[Hg] Alexia dunn MA [facility] 10:17:54 Social History Question Answer Notes LastModified by Organizat ion Details LastModified Time Tobacco Smoking Status [facility]22 12:57:48 Do You Have An Advance Directive? Yes Adela Pollack Information not available 03/13/2022 Is Blood Transfusion Acceptable In An Emergency? Yes [id number] Information not available 05/23/2020 What Is Your Level Of Caffeine Consumption? Moderate 3 Cups A Day Information not available 06/23/2024 How Much Tobacco Do You Chew? None [id number] Information not available 05/23/2020 What Type Of Diet Are You Following? REGULAR [id number] Information not available 05/23/2020 Which Illicit Or Recreational Drugs Have You Used? None [id number] Information not available 05/23/2020 When Did You [...] Have You Served In The ? No [employer] Information not available 11/13/2016 Have You Or Anyone In Your Household Had Any Of The Following Symptoms In The Last 14 Days: Sore Throat, Cough, Chills, Body Aches For Unknown Reasons, Shortness Of Breath For Unknown Reasons, Loss Of Smell, Loss Of Taste, Fever At Or Greater Than 100 Degrees Fahrenheit? No [employer] Information not available 02/10/2020 Are You Or Anyone In Your Household A Health Care Provider Or Emergency Responder? No [employer] Information not available 02/10/2020 To The Best Of Your Knowledge Have You Been In Close Proximity To Any Individual Who Tested Positive For COVID-19? No [employer] Information not available 02/10/2020 Have You Recently Traveled To A COVID-19 High Risk Area Or Gathering In The Last 10 Days? No Information not available 08/08/2020 What Was The Date Of Your Most Recent Tobacco Screening? 06/23/2024 Information not available 06/23/2024 How Many Children Do You Have? 3 Catia Patten Zachary Information not available 06/23/2024 Do You Use Protection During Sex? No [id number] Information not available 05/23/2020 Do You Use [...] Start Smoking Tobacco? 14 Quit At 37 [id number] Information not available 05/23/2020 Are You Passively Exposed To Smoke? No Information not available 05/15/2015 How Much Tobacco Do You Smoke? No Information not available 03/13/2022 Do You Use Sunscreen Routinely? No [id number] Information not available 05/23/2020 How Many Years Have You Smoked Tobacco? 21 [id number] Information not available 05/23/2020 Sex: Unknown Functional [...] stopped when he was 36 years old. [id number] Information not available 05/23/2020 Do you or have you ever used smokeless tobacco? Never used smokeless tobacco [id number] Information not available 05/23/2020 Are you currently employed? Yes [id number] Information not available 05/23/2020 Are you able to walk? YESWOREST Information not available 03/13/2022 Are you able to care for yourself? 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 [employer] [id number] Information not available 05/23/2020 Do you or [...] Recorded Time Tdap 5 completed Not Available [facility] 08/07/2019 02:21:44 Influenza, split virus, trivalent, preservative 9 completed Dania abrams [facility] 06/23/2023 09:09:40 zoster recombinant 9 completed Dania abrams [facility] 06/23/2023 09:09:40 Influenza, split virus, quadrivalent, preservative 0 completed Dania abrams [facility] 06/23/2023 09:09:40 Influenza, split virus, quadrivalent, preservative 7 completed GRACE Adams [facility] 06/23/2024 10:08:19 Influenza, split virus, quadrivalent, preservative 5 completed Dania Cee null, [facility] 06/23/2023 09:09:40 Influenza, split virus, quadrivalent, preservative 6 completed Dania Cee null, [facility] 06/23/2023 09:09:40 Influenza, split virus, quadrivalent, PF 4 completed Dania Cee null, [facility] 06/23/2023 09:09:40 COVID-19, mRNA, LNP-S, PF, 30 mcg/0.3 mL dose 1 completed Dania Cee null, [facility] 06/23/2023 09:09:40 Influenza, split virus, quadrivalent, preservative 8 completed Dania Cee null, [facility] 06/23/2023 09:09:40 COVID-19, mRNA, LNP-S, PF, 30 mcg/0.3 mL dose 1 completed Dania Cee null, [facility] 06/23/2023 09:09:40 COVID-19, mRNA, LNP-S, PF, 30 mcg/0.3 mL dose 1 completed Dania Cee null, [facility] 06/23/2023 09:09:40 Influenza, split virus, trivalent, preservative 1 completed Dania Cee null, [facility] 06/23/2023 09:09:40 COVID-19, mRNA, LNP-S, PF, 30 mcg/0.3 mL dose, nae-sucrose 2 completed Dania Cee null, [facility] 06/23/2023 09:09:40 Influenza, MDCK, quadrivalent, PF 2 completed Dania Cee null, [facility] 06/23/2023 09:09:40 COVID-19, mRNA, LNP-S, bivalent, PF, 30 mcg/0.3 mL dose 2 completed Dania Cee null, [facility] 06/23/2023 09:09:40 Influenza, high-dose, quadrivalent, PF 3 completed Dania Cee null, [facility] 06/23/2023 09:09:40 COVID-19, mRNA, LNP-S, PF, nae-sucrose, 30 mcg/0.3 mL 3 completed Bri Gao LPN null, [facility] 2023 11:21:26 Pneumococcal conjugate PCV20, polysaccharide [id number] conjugate, adjuvant, PF 3 completed Kristina Peng MA null, [facility] 04/19/2024 08:42:05 Influenza, split virus, quadrivalent, preservative 7 completed Alexia Cespedes MA null, [facility] 06/23/2024 10:08:19 COVID-19, mRNA, LNP-S, PF, nae-sucrose, 30 mcg/0.3 mL 4 completed Kristina Peng MA null, [facility] 04/19/2024 08:48:26 Influenza, high-dose, trivalent, PF 4 completed Sarah Lofton null, [facility] 04/01/2024 15:24:59 Tdap 5 completed Not Available [facility] 12/22/2024 10:33:26 Pneumococcal conjugate PCV20, polysaccharide [id number] conjugate, adjuvant, PF 3 completed Not Available [facility] 12/22/2024 10:33:26 Influenza, split virus, trivalent, preservative 9 completed Dania abrams, [facility] 06/23/2023 09:09:40 Influenza, split virus, trivalent, preservative 1 completed Dania abrams [facility] 06/23/2023 09:09:40 Past Encounters Encounter ID Performer Location Encounter Start Date Encounter Closed Date Diagnosis/Indication Diagnosis SNOMED-CT Code Diagnosis ICD10 Code Diagnosis Note [id number] autoEComm erce [address] [place] [address] 06/04/2007 00:00:00 [id number] autoEComm erce [address] [facility] [place] [address] 07/11/2008 00:00:00 [id number] autoEComm erce [address] [facility] [place] [address] 07/27/2008 00:00:00 [id number] autoEComm erce [address] [facility] [place] [address] 10/24/2008 00:00:00 [id number] autoEComm erce [address] [facility] [place] [address] 05/12/2009 00:00:00 [id number] autoEComm erce [address] [facility] [place] [address] 08/08/2009 00:00:00 [id number] autoEComm erce [address] [facility] [place] [address] 08/13/2010 00:00:00 [id number] autoEComm erce [address] [facility] [place] [address] 07/18/2011 00:00:00 [id number] autoEComm erce [address] [facility] [place] [address] 08/15/2011 00:00:00 [id number] autoEComm erce [address] [facility] [place] [address] 08/18/2012 00:00:00 [id number] autoEComm erce [address] [facility] [place] [address] 08/25/2012 00:00:00 [id number] autoEComm erce [address] [facility] [place] [address] 07/10/2013 00:00:00 [id number] autoEComm erce [address] [facility] [place], [place] [address] 08/19/2013 00:00:00 [id number] autoEComm erce [address] [facility] [place], [place] [address] 09/22/2013 00:00:00 [id number] autoEComm erce [address] [facility] [place], [place] [address] 12/20/2013 00:00:00 [id number] Waldemar Stinson MD Main Office [address] [facility] [address] [place], [place] [address] 03/17/2014 10:42:32 03/17/2014 11:33:35 Low back pain 884264862 [id number] CAIT Andrews Main Office [address] [facility] [address] [place], [place] [address] 08/09/2014 10:28:38 08/09/2014 11:04:19 Dysfunction of eustachian tube 37833941 sudafed, flonase. call in a week if not improving and can refer to ent [id number] CAIT Andrews Main Office [address] [facility] [address] [place], [place] [address] 08/12/2014 14:13:50 08/12/2014 17:18:29 Acute sinusitis 42797194 continue flonase and sudafed [id number] Waldemar Stinson MD Main Office [address] [facility] [address] [place] [address] 11/10/2014 13:29:49 11/10/2014 14:14:40 Adult health examination 907662667 Administra tion of diphtheria, pertussis, and tetanus vaccine 489568296 Essential hypertension 02409598 Onychomycosis 110124127 [id number] Waldemar Stinson MD Main Office [address] [facility] [address] [place] [address] 05/15/2015 10:41:25 05/15/2015 11:30:37 Essential hypertension 41208585 I10 Nocturia 104956796 R35.1 Low back pain 119273498 M54.5 he has not seen a specialist in more than 5 years and would like to have another evaluation . [id number] Jessy Wong PA-C Main Office [address] [facility] [address] [place] [address] 08/22/2015 11:23:59 08/22/2015 12:07:31 Asthmatic bronchitis 852926972 J45.909 Start Z-pack as directed as symptoms are not improved in 4 weeks. Flonase spray qd and nasal saline qd. Rest and fluids. [id number] Waldemar Stinson MD Main Office [address] [facility] [address] [place] [address] 11/13/2015 10:03:41 11/13/2015 11:02:30 Essential hypertension 63994677 I10 Adult heal th examination 343018415 Z00.00 Mass of [facility] 738564240 R22.30 [id number] Nick Wong PA-C Main Office [address] [address] [place] [address] 10/08/2016 13:24:01 10/08/2016 14:34:56 Cough 28726905 R05 25 minute office visit with greater than 50% of the visit face-to-fa ce with the patient and/or family providing counseling and/or coordinati on of care. Pneumonia 974428657 J18. 9 pt states has never had good success c orapak in past - will give levaquin [id number] Waldemar Stinson MD Main Office [address] [facility] [address] [place] [address] 11/13/2016 10:13:43 11/13/2016 11:06:40 Adult health examination 226828923 Z00.00 UTD with cololnosco py and due next year. UTD with immunizati ons Nocturia 136897634 R35.1 Still has episodes but improved with meds. Body mass index 30+ - obesity 917920453 E66.9 Z68.35 Discussed weight loss and he will make an effort to get this down. [id number] Waldemar Stinson MD Main Office [address] [facility] [address] [place] [address] 11/17/2017 12:52:19 11/17/2017 14:05:05 Adult health examination 707582597 Z00.00 Due for a colonoscop y this year and he was given info. UTD with immunizati ons Essential hypertension 67507423 I10 currently under control w/o meds Screening for malignant neoplasm of colon 991612853 Z12.11 Screening for malignant neoplasm of lung 949682102 Z12.2 Body mass index 30+ - obesity 064032473 E66.01 Z68.37 Discussed weight loss and he will make an effort to get this down. Abdominal aortic aneurysm 143403165 I71.4 His father from a AAA Benign pro static hyperplasia 637393687 N40.0 continue tamsulosin [id number] Waldemar Stinson MD Main Office [address] [facility] [address] [place] [address] 08/18/2018 13:19:28 08/18/2018 14:23:45 Fever 451108485 R50.9 Acute sinusitis 92599560 J01.90 Cough 95621889 R05 [id number] Waldemar Stinson MD Main Office [address] [place] [address] 11/26/2018 12:53:44 11/26/2018 14:12:42 Adult health examination 336489366 Z00.00 Due for a colonoscop y in 2022. Also due for shingles vaccine Essential hypertension 82800180 I10 currently under control w/o meds Low back pain 378820788 M54.5 he has not seen a specialist in more than 5 years and would like to have another evaluation . 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 [id number] Waldemar Stinson MD [facility] [address] [facility] [address] [place] [address] 11/30/2019 08:40:30 11/30/2019 09:56:43 Impotence of organic origin 585838975 N52.9 Benign pro static hyperplasia 858537782 N40.0 continue tamsulosin Eczema 23120124 L30.9 [id number] Waldemar Stinson MD Main Office [address] [address] [place] [address] 02/10/2020 14:52:35 02/10/2020 16:17:38 Adult health examination 283211710 Z00.00 Due for a colonoscop y in 2022. Also due for shingles vaccine Body mass index 30+ - obesity 695048661 E66.01 Discussed weight loss and he will make an effort to get this down. Benign pro static hyperplasia 930333694 N40.0 continue tamsulosin > His PSA is a little elevated. We will recheck this in 6 months. [id number] Waldemar Stinson MD Main Office [id number] [address] [address] [place] [address] 08/08/2020 15:26:58 08/09/2020 10:44:38 Essential hypertension 08857557 I10 currently under control w/o meds Benign pro static hyperplasia 289301648 N40.0 continue tamsulosin > His PSA remains elevated after a recheck 6 months later. We will refer him to urology for further evaluation . [id number] Waldemar Stinson MD [address] [address] [place] [address] 09/11/2020 09:41:13 09/11/2020 14:28:29 Prostate specific antigen above reference range 447925341 R97.20 W/u is in progress. A repeat PSA is going to be done before a future plan is put into place. Microscopic hematuria 19 1014961 R31.29 Seen by urology and scheduled for an office cystoscopy and a CT scan largely because his father had bladder cancer 15 years ago. [id number] Matthieu Singleton MD Main Office [id number] [address] [address] [place] [address] 09/22/2020 14:56:42 09/22/2020 15:51:35 Elevated blood-pressure reading without diagnosis of hypertension 377171332 R03.0 Elevated blood pressure reading in the [...] blood pressure check. Pain of left wrist 58059 16986 41065 M25.532 There is a significan t swelling [...] also put a referral for hand surgeon. [id number] Waldemar Stinson MD Main Office [address] [address] [place] [address] 10/05/2020 11:32:08 10/05/2020 12:09:10 Essential hypertension 36775145 I10 He checks his BP at home and the systolic is generally >150. He has never been on meds. He will start meds and continue with lifestyle changes. Swelling o f joint of left wrist 7585341008 6032050 M25.432 This was possible gout vs pseudogout . [id number] Waldemar Stinson MD Main Office [address] [address] [place] [address] 11/15/2020 13:26:08 11/15/2020 14:09:46 Essential hypertension 38254183 I10 Started meds and tolerating well. He will get a new cuff since he continues to get high readings at home and the cuff is 10 years old. [id number] Waldemar Stinson MD [facility] [address] [address] [place] [address] 02/01/2021 12:59:31 02/01/2021 21:41:06 Pain in right foot [id number] 60826 M79.671 Fracture of great toe 20 8421901 S92.404A [id number] Silvano Gregory MD [facility] [address] [place] [address] [place] [address] 02/02/2021 09:13:08 02/02/2021 10:50:27 Closed fracture of first metatarsal bone 51435084 S92.311A Fall W19.XXXA [id number] Waldemar Stinson MD Main Office [address] [address] [place] [address] 03/08/2021 10:22:17 03/08/2021 11:14:39 Adult health examination 659105948 Z00.00 Due for a colonoscop y in 2022. UTD w/immuniza tions including shingles and COVID. Body mass index 40+ - severely obese 925577460 E66.01 Z68.41 Essential hypertension 80752342 I10 Good control and tolerating meds well. Continue current mgmt. Benign pro static hyperplasia 655315922 N40.0 Followed by urology. Injury of great toe 2827 50572 S99.922A He is followed by [facility] and is considerin g surgery. He has a f/u there in 6 weeks. [id number] Waldemar Stinson MD Main Office [address] [address] [place] [address] 08/21/2021 14:56:09 08/21/2021 15:51:53 Edema of lower extremity 284544561 R60.0 Cellulitis 109926202 L03 .90 [id number] Waldemar Stinson MD Main Office [address] [address] [place] [address] 09/26/2021 15:41:34 09/26/2021 16:12:27 Essential hypertension 63428365 I10 Good control and tolerating meds well. Continue current mgmt. Body mass index 40+ - severely obese 977694541 E66.01 Z68.41 Low back pain 282483778 M54.50 This is chronic and he is followed by [facility] where he gets regular steroid injections making his back pain manageable . [id number] Waldemar Stinson MD Main Office [address] [facility] [address] [place] [address] 03/13/2022 12:55:46 03/13/2022 13:57:39 Adult health examination 394411527 Z00.00 Due for a colonoscop y in 2022. UTD w/immuniza tions including shingles and COVID. Low back pain 224364715 M54.50 This is chronic and he is followed by [facility] where he gets regular steroid injections making his back pain manageable . He would like to try a med different from ibuprofen. I will send in a script for celebrex. If that doesn't work then will try a muscle relaxant. Also advised that he look into acupunctur e and chiropract ic. Benign pro static hyperplasia 538331437 N40.0 Followed by urology. Recently had a reassuring MRI. Essential hypertension 16589101 I10 Good control and tolerating meds well. Continue current mgmt. Pain of ri ght knee region 7997717149 20917 M25.561 [id number] Waldemar Stinson MD Main Office [address] [facility] [address] [place] [address] 09/17/2022 10:28:48 09/17/2022 11:01:02 Essential hypertension 29832276 I10 Good control and tolerating meds well. Continue current mgmt. Thoracic back pain 40561 8004 M54.6 This sounds muscular but will check pancreas at his request and will check urine for hematuria as a sign of kidney stones. [id number] Waldemar Stinson MD Main Office [address] [facility] [address] [place] [address] 02/04/2023 11:05:33 02/04/2023 11:43:18 Pain of left knee joint 1126049638 91560 M25.562 Possible ruptured Bakers cyst vs ligament damage. [id number] Waldemar Stinson MD Main Office [address] [place] [address] 06/18/2023 09:54:12 06/18/2023 11:00:32 Adult health examination 067219284 Z00.00 Due for a colonoscop y; last one done by Dr Pitts in 2018. UTD w/immuniza tions including shingles, flu, tetanus and COVID. He is due for a pneumonia vaccine and will get this at his pharmacy Essential hypertension 23607177 I10 Good control when he checks it at home and tolerating meds well. Continue current mgmt. Administra tion of pneumococcal vaccine 25945957 Z23 Advised to get this at his pharmacy. Screening for malignant neoplasm of colon 622295132 Z12.[address] Pitts in 2018 in a 5-year call back. Body mass index 40+ - severely obese 087488111 Z68.41 Referred to weight loss program. Benign pro static hyperplasia with outflow obstruction 061540147 N40.1 Followed by urology and just started on finasterid e since tamsulosin alone was no longer helping. Pain of bi lateral knee joints 0729385216 08588 M25.561 M25.562 Followed at [facility] and now considerin g surgery since injections and gel no longer helpful. Morbid obesity 148341508 E66.01 Has tried for years to lose weight by adjusting his eating habits and exercise but has been unsuccessf ul. [id number] Waldemar Stinson MD Main Office [address] [place] [address] 2023 11:06:39 2023 11:48:18 Essential hypertension 52943322 I10 Running a little high. Will stop his lisinopril and start him on amlodipine -benazepri l Low back pain 621952830 M54.50 This is chronic and he is followed by [facility] where he gets regular steroid injections making his back pain manageable . He has been losing weight and this has had a positive affect on his back pain. Benign pro static hyperplasia with outflow obstruction 597202007 N40.1 Followed by urology and will be getting a prostate MRI. [id number] Waldemar Stinson MD Main Office [address] [place] [address] 01/20/2024 08:54:10 01/20/2024 09:34:36 Essential hypertension 70158311 I10 Doing well on current med. Continue. He has lost 36 lbs in the last 7 months. This is the lowest he has been in 10 years. Body mass index 30+ - obesity 550660197 E66.01 Z68.35 Followed by weight loss specialist and currently taking mounjaro once weekly. Has lost 36 lbs in 7 months. Benign pro static hyperplasia with outflow obstruction 312862592 N40.1 Followed by urology. MRI did not show any suspicious lesions. [id number] Waldemar Stinson MD Main Office [address] [place] [address] 04/19/2024 08:33:40 04/19/2024 09:04:32 Pre-surgery evaluation 649015379 Z01.818 No medical contraindi cations to proposed procedure. Tim Perioperat rose marie Cardiac Risk was calculated and the risk for perioperat rose marie [place] is 0.2%. May proceed to surgery as planned.-e kg: NSR, no ST changes Essential hypertension 90628986 I10 in office BP 114/69-sta ble readings at home-c/w current regimen Osteoarthr itis of knee 609287374 M17.9 pre-operat rose marie medical clearance for right total knee replacemen t on 05/17/24by Dr. David Canas of [facility] (NPI#: [id number] ). Under spinal + block for anesthesia . [id number] Waldemar Stinson MD Main Office [address] [place] [address] 05/26/2024 14:30:29 05/26/2024 14:56:52 Pneumonia 582971647 J18.9 x9 days of symptoms>c ough, chest congestion , fatigue, chills, tightness with deep inhalation -denies of any fever, n/v/d, dizziness, chest pain-has tried multiple OTC medication s with no relief-on PE; crackles were appreciate d in the right lower lobe-will provide z-pack and augmentin course-dis cussed to continue with conservati ve measuremen ts [id number] Waldemar Stinson MD Main Office [address] [facility] [address] [place] [address] 06/23/2024 09:52:42 06/23/2024 10:48:21 Adult health examination 208271446 Z00.00 Due for a colonoscop y; last one done by Dr Pitts in 2018. Scheduled in [place] 10/04/24.UT D w/immuniza tions including shingles, pneumonia, flu, tetanus and COVID. Benign pro static hyperplasia with outflow obstruction 845209762 N40.1 Followed by urology. MRI did not show any suspicious lesions. Nocturia 540943181 R35.1 Still has episodes but improved with meds. Essential hypertension 23001668 I10 Doing well on current med. Continue. He has lost 45 lbs in the last year on mounjaro which he is tolerating w/o SE's. This is the lowest he has been in 11 years. His goal is 215. Body mass index 30+ - obesity 024206712 Z68.30 E66.9 Followed by weight loss specialist and currently taking mounjaro once weekly. Has lost 45 lbs in 1 year. Having no SE's with meds. His goal is 215 lbs. Advance care planning 71 1279308 Z71.89 Discussed and forms given [id number] Waldemar Stinson MD Main Office [address] [facility] [address] [place] [place] [place] [address] 12/22/2024 10:30:24 12/22/2024 11:05:17 Essential hypertension 94734101 I10 Doing well on current med. Continue. He has lost 50 lbs in the last year on mounjaro which he is tolerating w/o SE's. This is the lowest he has been in 11 years. His goal is 215. Benign pro static hyperplasia with outflow obstruction 962239321 N40.1 Followed by urology. MRI did not show any suspicious lesions and his bx were negative. Body mass index 30+ - obesity 041300674 Z68.34 Followed by weight loss specialist and [...] Name 12/31/2024 2 [place] [id number] Silvano Lamar Jaki [id number] Silvano Lamar Jaki 12/22/2024 1 [place] [employer] Silvano Newton Jaki [id number] Silvano Lamar Jaki 05/26/2024 1 [facility] Silvano Newton Jaki [id number] Silvano Lamar Jaki 05/26/2024 2 [place] [facility] [id number] Silvano Newton Jaki [id number] Silvano Newton Jaki Notes Date Note [...] 7 months. He continues to see a hull molder and is using weight-loss injections which have been helping and which he is tolerating well. He is currently taking mounjaro. He had a prostate MRI which was read as enlarged but no suspicious lesions. Waldemar Stinson MD [address] [address], [place], [address], [facility] 01/20/2024 09:41:00 04/19/2024 text/html Silvano is a 68yr o ld M with PMHx of osteoarthritis, HTN presents for pre-operative medical clearance for right total knee replacement on 05/17/[address] David Canas of [facility] (NPI#: [id number]). Under spinal + block for anesthesia. Denies [...] palpitations, fever, chills, and nausea/vomiting. Jody abrams, [facility] 04/26/2024 15:11:55 05/26/2024 text/html Upper Respirator y SymptomsReported bypatient.Location:[facility] [...] day & night quill [facility] [address] [facility] [address], [place], [address], [facility] 05/26/2024 14:58:35 06/23/2024 text/html Generic HPI [...] is scheduled for October 04, 2024 in [place].Still working and may be retiring sometime in the next couple of years. Waldemar Stinson MD [address], [address], [facility] 06/23/2024 11:01:51 12/22/2024 text/html Hypertension F/UReported bypatient.Associated [...] the mounjaro. He continues to see a hull molder and is using weight-loss injections (mounjaro) which have been helping and which he is tolerating well. His weight loss has recently plateaued but he continues with the med. He had a prostate MRI which was read as enlarged but no suspicious lesions. He recently had prostate bx and no cancer was identified. Waldemar Stinson MD [address], [address], [facility] 12/22/2024 12:28:56
--- OUTSIDE RECORDS SUMMARY | 2025-01-26 10:42 | XMS_ITS | Encounter Summary ---
Author Organization [facility] Address [address] [place] [address] Care Team Providers Care Topline Beading Machine Tender Name Role Phone Physician, No Pcp Primary Care Provider Unavaila ble Encounter Details Date Type Department Care Team (Late st Contact Info) Description 09/24/[address] [facility] - Main Lab [address] [place] [address] Dat Silva MD [address] [facility] [address] [place] [address] Benign essential microscopic hematuria Social History Tobacco Use Types Packs/Day Years Used Date Smoking Tobacco: Never Assessed Sex and Gender Information Value Date Recorded Sex Assigned at Not on file Legal Sex Male 2:26 PM EST Gender Identity Not on file Sexual Orientation Not on file documented as of this encounter Plan of Treatment Not on file documented as of this encounter Procedures Procedure Name Priority Date/Time Associated Diagnosis Comments AP OUTSIDE CONSULT Routine 09/22/2024 12 :00 AM EST Benign essential microscopic hematuria documented in this encounter Results * Anatomic pathology outside consult (09/22/2024 12:00 AM EST) Final Diagnosis A. Urine, Voided, ([id number]): Negative for high grade urothelial carcinoma. 09/30/2024 9:44 AM EDT [facility] Clinical Information Benign essential microscopic hematuria R31.1 Urine cytology with reflex UroVysion (AUC/SHGUC) 09/30/2024 9:44 AM EDT [facility] Gross Description A. Urine, Voided, ([id number]): Received is one ThinPrep slide for cytology. 09/30/2024 9:44 AM EDT [facility] Disclaimer Unless otherwise specified, all tissue is 10% NB formalin fixed and paraffin embedded. Technical pathology services provided by [facility] [address] [place] [address] (CLIA #[id number]/Sa dinora Horner MD, Oven Loader) 09/30/2024 9:44 AM EDT [facility] Tissue Urine specimen from urethra / Unknown 09/22/2024 09/24/2024 1:42 PM EST us Dat Silva MD LAB PATHOLOGY ORDERABLES Fi nal Result [facility] [address] [place] [address], documented in this encounter Visit Diagnoses Diagnosis Benign essential microscopic hematuria documented in this encounter Care Teams Topline Beading Machine Tender Relationship Specialty Start Date End Date Physician, No Pcp PCP - General 10/27/24 documented as of this encounter
== END 2025-01-26 10:36 | disposition home or self-care (01) ==
LOC: HO.HOS 09:59
PROVIDERS: Visit Provider Orthopaedic Surgery
DX: M75.42 Impingement syndrome of left shoulder (principal)
CPT/HCPCS: 99213; G2211

== ENCOUNTER → 2025-01-26 09:59 | Outpatient (BNVA) | payer MEDICARE, SELFPAY | PROVIDERS: Visit Provider Orthopaedic Surgery | DX: M75.42 Impingement syndrome of left shoulder (principal) | CPT/HCPCS: 99212 ==